=== PATIENT | male | born 2000 | race Hispanic/Latino ===

== ENCOUNTER 2018-09-29 15:05 | Emergency (ER) | payer SELFPAY ==
[2018-09-29 15:50] LABS: Absolute Lymphocytes (CBC) 1.9 K/uL (0.7-4.9); Absolute Monocytes 0.6 K/uL (0.1-1.3); Absolute Neutrophil 6.2 K/uL (1.8-8.0); Basophils % 0.6 % (0-1.3); MPV 9.4 fL (7.6-11.3); Monocytes % 6.7 % (3.3-12.3); RBC Red Blood Cell Count 4.94 M/uL (4.33-5.43)
[2018-09-29 15:56] LABS: BUN Blood Urea Nitrogen 9 mg/dL (7-18); Bicarbonate 28 mmol/L (21-32); Glucose Level 83 mg/dL (74-106); Potassium 3.6 mmol/L (3.5-5.1); Sodium Level 143 mmol/L (136-145)
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
== END 2018-09-29 17:01 | disposition home or self-care (01) ==
LOC: ER 15:05
DX: S93.401A Sprain of unspecified ligament of right ankle, initial encounter (principal); S00.90XA Unspecified superficial injury of unspecified part of head, initial encounter; S61.401A Unspecified open wound of right hand, initial encounter; V47.5XXA Car driver injured in collision with fixed or stationary object in traffic accident, initial encounter; F17.210 Nicotine dependence, cigarettes, uncomplicated; F90.9 Attention-deficit hyperactivity disorder, unspecified type
CPT/HCPCS: 36415; 70450; 71260; 72125; 74177; 80048; 85025; 99285; Q9967

== ENCOUNTER 2020-01-16 08:55 | Emergency (ER) | payer SELFPAY ==
[2020-01-16] MEDS ORDERED: NA CHLORIDE 0.9% 1,000 ML ONE (10:05)
[2020-01-16 10:06] LABS: Absolute Lymphocytes (CBC) 1.3 K/uL (0.7-4.9); Basophils % 0.5 % (0-1.3); Hematocrit 41.1 % (39.6-49.0); Lymphocytes % 9.9 % (15.3-44.8); MPV 9.8 fL (7.6-11.3); RBC Red Blood Cell Count 4.97 M/uL (4.33-5.43)
[2020-01-16 10:12] LABS: Protime INR 1.03
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
[2020-01-16 10:43] LABS: ALT/SGPT 31 U/L (12-78); AST/SGOT 26 U/L (15-37); Albumin 4.5 g/dL (3.4-5.0); Alkaline Phosphatase 72 U/L (45-117); BUN Blood Urea Nitrogen 12 mg/dL (7-18); Bicarbonate 26 mmol/L (21-32); Bilirubin Direct 0.3 mg/dL (0-0.2); Bilirubin Total 1.1 mg/dL (0.2-1.0); Glucose Level 102 mg/dL (74-106); Potassium 3.3 mmol/L (3.5-5.1); Protein, Total 8.4 g/dL (6.4-8.2); Sodium Level 135 mmol/L (136-145)
[2020-01-16 11:02] LABS: Urine Blood NEGATIVE (NEG); Urine Glucose NEGATIVE (NEG); Urine Protein NEGATIVE (NEG)
[2020-01-16] MEDS ORDERED: POTASSIUM CL SA 10 MEQ TAB PO ONE (11:34)
[2020-01-16 12:02] LABS: Barbiturates NEGATIVE (NEGATIVE); Benzodiazepines NEGATIVE (NEGATIVE); Cocaine NEGATIVE (NEGATIVE); METHAMPHETAM NEGATIVE (NEGATIVE); Methadone NEGATIVE (NEGATIVE); Opiates NEGATIVE (NEGATIVE); Phencyclidine NEGATIVE (NEGATIVE); THC Cannibis POSITIVE (NEGATIVE)
[2020-01-16 13:00] VITALS: BP 136/88; TEMP 98.6; O2SAT 100
--- NOTE | 2020-01-17 12:58 | EKG ---
Test Date: 2020-01-16 Test Time: 10:16:29 Skilled Nursing Case Manager: DANIEL MEASUREMENT RESULTS: Intervals: Rate: 71 [place]: QRSD: 78 QT: 382 QTc: 415 [place]: P: [place]: QRS: 38 T: 17 INTERPRETIVE STATEMENTS: Atrial fibrillation Abnormal ECG No previous ECG available for comparison Electronically Signed On 01-17-20 12:57:23 CDT by Yvon Trujillo
--- NOTE | 2020-01-19 16:56 | ER ---
Nurse's Notes [facility] Name: Chandan Kimball Age: 19 yrs Sex: Male : 2000 Arrival Date: 01/16/2020 Time: 09:04 Bed 8 Private MD: Diagnosis: Anxiety disorder due to known physiological condition;Post-traumatic stress disorder (PTSD);Drug abuse counseling and surveillance Presentation: 01/15 09:05 Chief complaint: EMS states: Mom wants pt to be transferred to a rehab. Pt reports "I jl7 need a drug test to prove I'm not on drugs." Pt appears anxious in triage. Coronavirus screen: Proceed with normal triage. Patient denies a cough. Patient denies shortness of breath or difficulty breathing. Patient denies measured and/or subjective temperature greater than 100.4F prior to today's visit. Patient denies travel on a cruise ship or to a country the [facility] currently lists as an affected area. Patient denies contact with known and/or suspected case of COVID-19. Ebola Screen: No symptoms or risks identified at this time. Initial Sepsis Screen: Does the patient meet any 2 criteria? No. Patient's initial sepsis screen is negative. Does the patient have a suspected source of infection? No. Patient's initial sepsis screen is negative. Risk Assessment: Do you want to hurt yourself or someone else? Patient reports no desire to harm self or others. Onset of symptoms is unknown. Care prior to arrival: None. Transition of care: patient was not received from another setting of care. 09:05 Method Of Arrival: EMS: [facility] 09:05 Acuity: TESS 4 jl7 09:36 Acuity: TESS 3 jl7 Triage Assessment: 09:08 General: Appears in no apparent distress. uncomfortable, Behavior is cooperative, jl7 anxious. Pain: Denies pain. Neuro: Level of Consciousness is awake, alert, obeys commands, Oriented to person, place, time, situation. Cardiovascular: Patient's skin is warm and dry. Respiratory: Airway is patent Respiratory effort is even, unlabored, Respiratory pattern is regular, symmetrical. Derm: Skin is pink, warm \\T\\ dry. Historical: - Allergies: 09:08 Hydroxyzine; jl7 - Home Meds: 09:08 Seroquel Oral [Active]; jl7 - PMHx: 09:08 ADD/ADHD; PTSD-self dx; jl7 - Immunization history:: Adult Immunizations unknown. - Social history:: Smoking status: Patient reports the use of cigarette tobacco products, smokes one-half pack cigarettes per day, Patient/guardian denies using alcohol, street drugs. Screenin:10 Abuse screen: Denies threats or abuse. Denies injuries from another. Nutritional jl7 screening: No deficits noted. Tuberculosis screening: No symptoms or risk factors identified. Fall Risk None identified. Assessment: 09:10 General: see triage assessment. jl7 10:28 Reassessment: FAMILY AT B/S WITH PROVIDER. FAMILY PROVIDED REHAB/DETOX RESOURCES. bp 11:22 Reassessment: Pt reports accidentally pulling his IV out, ERP notified. jl7 12:10 Reassessment: Patient appears in no apparent distress at this time. Patient and/or jl7 family updated on plan of care and expected duration. Pain level reassessed. Patient is alert, oriented x 3, equal unlabored respirations, skin warm/dry/pink. Vital Signs: 09:05 BP 136 / 88; Pulse 93; Resp 17 S; Temp 98.6(O); Pulse Ox 100% on R/A; Weight 108.86 kg jl7 (R); Height 5 ft. 9 in. (175.26 cm) (R); Pain 0/10; 09:05 Body Mass Index 35.44 (108.86 kg, 175.26 cm) jl7 ED Course: 09:04 Patient arrived in ED. jl7 09:07 Triage completed. jl7 09:08 Arm band placed on right wrist. jl7 09:09 Bob Henning PA is PHCP. jr8 09:09 Pavel Dexter MD is Attending Physician. jr8 09:10 Patient has correct armband on for positive identification. Bed in low position. Call [facility] light in reach. Side rails up X 1. Pulse ox on. NIBP on. 09:11 Venus Sanon, QIAN is Primary Nurse. jl7 10:03 Initial lab(s) drawn, by tx, sent to lab. Inserted saline lock: 20 gauge in right jl7 forearm, using aseptic technique. Blood collected. 10:18 EKG done, by senior technical writer. reviewed by Bob LAGUERRE. at1 12:30 Jeffrey Gabriel MD is Referral Physician. jr8 12:49 No provider procedures requiring assistance completed. pt dc'd IV. jl7 Administered Medications: 10:02 Drug: NS 0.9% 1000 ml Route: IV; Rate: 1000 ml; Site: right forearm; jl7 11:28 Follow up: Response: No adverse reaction; IV Status: Order to discontinue infusion; IV jl7 Intake: 400ml 11:28 Drug: Potassium Chloride 20 mEq Route: PO; jl7 Intake: 11:28 IV: 400ml; Total: 400ml. jl7 Outcome: 12:31 Discharge ordered by . jr8 12:49 Discharged to home ambulatory, with family. jl7 12:49 Condition: stable 12:49 Discharge instructions given to patient, family, Instructed on discharge instructions, follow up and referral plans. medication usage, Demonstrated understanding of instructions, follow-up care, medications, Prescriptions given X 2. 12:50 Patient left the ED. jl7 Signatures: Bob Henning PA PA jr8 Anita Kuhn, sales representative health insurance EKG Tat1 Venus Sanon, RN RN jl7 Bowen Kilgore, RN RN bp
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
== END 2020-01-16 12:50 | disposition home or self-care (01) ==
LOC: ER 08:55
DX: F43.10 Post-traumatic stress disorder, unspecified (principal); Z71.51 Drug abuse counseling and surveillance of drug abuser; F17.210 Nicotine dependence, cigarettes, uncomplicated; F90.9 Attention-deficit hyperactivity disorder, unspecified type
CPT/HCPCS: 36415; 80048; 80076; 80307; 80320; 80329; 81003; 85025; 85610; 85730; 93005; 96360; 99284; J7030

== ENCOUNTER 2020-01-18 03:50 | Emergency (ER) | payer SELFPAY ==
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
[2020-01-18 04:17] LABS: Absolute Lymphocytes (CBC) 1.2 K/uL (0.7-4.9); Basophils % 0.9 % (0-1.3); Hematocrit 42.4 % (39.6-49.0); Lymphocytes % 10.3 % (15.3-44.8); MPV 10.1 fL (7.6-11.3); RBC Red Blood Cell Count 4.97 M/uL (4.33-5.43)
[2020-01-18 04:35] LABS: Protime INR 1.03
[2020-01-18 04:38] LABS: ALT/SGPT 32 U/L (12-78); AST/SGOT 17 U/L (15-37); Albumin 4.3 g/dL (3.4-5.0); Alkaline Phosphatase 73 U/L (45-117); BUN Blood Urea Nitrogen 12 mg/dL (7-18); Bilirubin Direct 0.2 mg/dL (0-0.2); Bilirubin Total 0.7 mg/dL (0.2-1.0); Glucose Level 203 mg/dL (74-106); Potassium 3.1 mmol/L (3.5-5.1); Protein, Total 8.3 g/dL (6.4-8.2); Sodium Level 138 mmol/L (136-145)
[2020-01-18 04:42] LABS: Bicarbonate 14 mmol/L (21-32)
[2020-01-18 05:26] LABS: Urine Blood 1+ (NEG); Urine Glucose NEGATIVE (NEG); Urine Protein 2+ (NEG); Urine Specific Gravity >1.030 (1.005-1.030); Urine pH 5.5 (5.0-7.0)
[2020-01-18] MEDS ORDERED: NA CHLORIDE 0.9% 1,000 ML ONE ×2 (05:28→09:34)
[2020-01-18 06:00] LABS: Barbiturates NEGATIVE (NEGATIVE); Benzodiazepines NEGATIVE (NEGATIVE); Cocaine NEGATIVE (NEGATIVE); METHAMPHETAM NEGATIVE (NEGATIVE); Methadone NEGATIVE (NEGATIVE); Opiates NEGATIVE (NEGATIVE); Phencyclidine NEGATIVE (NEGATIVE); THC Cannibis POSITIVE (NEGATIVE)
[2020-01-18 07:34] LABS: BUN Blood Urea Nitrogen 12 mg/dL (7-18); Bicarbonate 24 mmol/L (21-32); Glucose Level 109 mg/dL (74-106); Potassium 3.4 mmol/L (3.5-5.1); Sodium Level 142 mmol/L (136-145)
[2020-01-18] MEDS ORDERED: DIPHENHYDRAMINE 50 MG/ML VIAL ONE (10:39)
[2020-01-18 12:22] VITALS: TEMP 97.1
[2020-01-18 12:31] VITALS: O2SAT 100
[2020-01-18 12:33] VITALS: BP 130/88
--- NOTE | 2020-01-18 12:48 | RAD REPORT ---
EXAM DESCRIPTION: CT - Head Brain Wo Cont - 01/18/2020 6:23 am CLINICAL HISTORY: SEIZURE COMPARISON: None. TECHNIQUE: CT HEAD WITHOUT IV CONTRAST on 01/18/2020 5:16 AM CDT This exam was performed according to our departmental dose-optimization program, which includes autom ated exposure control, adjustment of the mA and/or kV according to patient size and/or use of iterati ve reconstruction technique. FINDINGS: There is no acute hemorrhage, mass effect or midline shift. Cam-white differentiation is preserved. There is no hydrocephalus. There is no significant volume loss for age. The calvarium is intact. Orbits and globes are unremarkable. The paranasal sinuses are clear. Mastoid air cells are clear. IMPRESSION: No acute intracranial findings. Electronically signed by: Ector Wild MD 01/18/2020 6:04 AM CDT Due to temporary technical issues with the PACS/Fluency reporting system, reports are being signed by the in house radiologist without review as a courtesy to ensure prompt reporting. The interpreting r adiologist is fully responsible for the content of the report.
--- NOTE | 2020-01-18 14:05 | EKG ---
Test Date: 2020-01-18 Test Time: 04:10:37 [employer]ricating Machine Tender: KARINA MEASUREMENT RESULTS: Intervals: Rate: 98 [place]: 138 QRSD: 78 QT: 336 QTc: 428 [place]: P: 70 [place]: 138 QRS: 26 T: -39 INTERPRETIVE STATEMENTS: Normal sinus rhythm Moderate voltage criteria for LVH, may be normal variant ST & T wave abnormality, consider inferior ischemia Abnormal ECG Electronically Signed On 01-18-20 14:04:16 CDT by Yvon Trujillo
--- NOTE | 2020-01-19 18:52 | ER ---
Nurse's Notes [facility] Name: Chandan Kimball Age: 19 yrs Sex: Male : 2000 Arrival Date: 01/18/2020 Time: 03:51 Bed 5 Private MD: Diagnosis: Altered mental status, unspecified;Epilepsy and recurrent seizures Presentation: 01/17 03:52 Chief complaint: EMS states: DRUG INDUCED SEIZURE. HE HAD TWO EPISODES OF SIEZURE. GAVE rv PATIENT TWO DOSES OF ATIVAN, TOTAL OF 4MG IV. LAST TIME HE WAS HERE HE WAS POSITIVE FOR MARIJUANA. Coronavirus screen: Proceed with normal triage. Ebola Screen: No symptoms or risks identified at this time. Initial Sepsis Screen: Does the patient meet any 2 criteria? No. Patient's initial sepsis screen is negative. Does the patient have a suspected source of infection? No. Patient's initial sepsis screen is negative. Risk Assessment: Do you want to hurt yourself or someone else? Patient reports no desire to harm self or others. Onset of symptoms is unknown. 03:52 Method Of Arrival: EMS: [facility] rv 03:52 Acuity: TESS 2 rv Triage Assessment: 03:56 General: Appears unkempt, Behavior is uncooperative. Pain: Unable to use pain scale. rv Patient is disoriented. Neuro: Level of Consciousness is confused, Oriented to none. Cardiovascular: Patient's skin is warm and dry. Rhythm is sinus tachycardia. Respiratory: Airway is patent Respiratory effort is even, unlabored. Derm: Skin is intact. Historical: - Allergies: 03:56 Hydroxyzine; rv - Home Meds: 03:56 quetiapine 50 mg oral tab 1 tab 2 times per day [Active]; venlafaxine 75 mg oral tab 1 rv tab 2 times per day [Active]; - PMHx: 03:56 ADD/ADHD; PTSD-self dx; rv - PSHx: 03:56 Unable to obtain; rv - Immunization history:: Adult Immunizations unknown. - Social history:: Smoking status: unknown. Screenin:58 Abuse screen: DISORIENTED. Nutritional screening: No deficits noted. Tuberculosis rv screening: No symptoms or risk factors identified. Fall Risk No fall in past 12 months (0 pts). Secondary diagnosis (15 points) DISORIENTED. IV access (20 points). Ambulatory Aid- None/Bed Rest/Nurse Assist (0 pts). Gait- Normal/Bed Rest/Wheelchair (0 pts) Mental Status- Overestimates/Forgets Limitations (15 pts.). Total Wu Fall Scale indicates Low Risk Score (25-44 pts). Fall prevention measures have been instituted. Side Rails Up X 2 Frequent Obs/Assesments occuring. Assessment: 05:49 Reassessment:. Neuro: Level of Consciousness is confused, Oriented to none Pupils are rv PERRLA, Pupil Size: 3. 05:55 Reassessment: patient is still asleep. unable to maintain wakefulness. unable to answer rv questions and speaks incomprehensible sounds. no signs of respiratory distress at this time. and heart rate is normalized to 73 bpm, sinus rhythm. 07:09 Reassessment: Samantha (mother) [phone] call for when ready to discharge. sv 07:20 General: Appears in no apparent distress. comfortable, Behavior is drowsy. Pain: Unable sv to use pain scale. FLACC scale score is 0 out of 10. Neuro: Level of Consciousness is confused, lethargic. Respiratory: Airway is patent Respiratory effort is even, unlabored, Respiratory pattern is regular, symmetrical. Derm: Skin is pink, warm \\T\\ dry. 08:00 Reassessment: Patient appears in no apparent distress at this time. Pt sleeping at this sv time. Respirations even and unlabored. 09:21 Reassessment: Pt awake at this time, asking what happened. Pt informed. Pt shaking at sv this time. HR while asleep has been 70-80s and while awake is 110-130s. Dr Johnson informed. 09:25 Reassessment: Patient appears in no apparent distress at this time. Patient and/or sv family updated on plan of care and expected duration. Pain level reassessed. Patient is alert, oriented x 3, equal unlabored respirations, skin warm/dry/pink. Pt sitting up in the bed. Water given to the pt. 10:00 Reassessment: Pt repeatedly removing his telemetry leads, pulse ox, and BP cuff. Pt sv instructed to leave them on. Pt replies, Yes ma'am. 10:28 Reassessment: Dr Johnson at the bedside speaking to the pt. sv 11:00 Reassessment: Pt repeatedly removing his telemetry leads, pulse ox, and BP cuff. Pt sv instructed to leave them on. Pt replies, Yes ma'am. 11:14 Reassessment: Patient appears in no apparent distress at this time. Patient and/or sv family updated on plan of care and expected duration. Pain level reassessed. Patient is alert, oriented x 3, equal unlabored respirations, skin warm/dry/pink. Pt noted to be standing on the side of the stretcher, stated that he couldn't stay in the bed any longer. Pt stated "I just have a lot of energy right now." Asked pt to sit on the stretcher for safety reasons. Pt able to sit on the side of the stretcher. 12:12 Reassessment: Patient appears in no apparent distress at this time. Patient and/or sv family updated on plan of care and expected duration. Pain level reassessed. Patient is alert, oriented x 3, equal unlabored respirations, skin warm/dry/pink. Pt able to ambulate on his own with no difficulty noted. Vital Signs: 03:52 BP 142 / 73; Pulse 115; Resp 18; Temp 97.1; Pulse Ox 98% on R/A; Weight 90.72 kg; rv 04:00 BP 128 / 82; Pulse 104; Resp 16; Pulse Ox 97% on R/A; rv 05:51 BP 152 / 84; Pulse 63; Resp 15; Pulse Ox 98% ; rv 07:12 BP 147 / 88; Pulse 77; Resp 22; Pulse Ox 100% ; sv 08:18 BP 143 / 90; Pulse 75; Resp 20; Pulse Ox 100% on R/A; sv 09:46 BP 151 / 96; Pulse 110; Resp 21; Pulse Ox 99% ; sv 10:53 Pulse 90; Resp 22; Pulse Ox 100% ; sv 11:50 BP 130 / 88; Pulse 80; Resp 18; Pulse Ox 100% ; sv 11:50 Pt standing up in the room at this time. No difficulty with ambulation. sv [place] Coma Score: 03:56 Eye Response: to pain(2). Verbal Response: confused(4). Motor Response: localizes rv pain(5). Total: 11. 05:50 Eye Response: to voice(3). Verbal Response: confused(4). Motor Response: localizes rv pain(5). Total: 12. ED Course: 03:51 Patient arrived in ED. ds1 03:52 Dejan Vo, RN is Primary Nurse. rv 03:55 Triage completed. rv 03:57 Arm band placed on Patient placed in the treatment room, on a stretcher, Patient rv notified of wait time. 03:57 No provider procedures requiring assistance completed. rv 03:59 Seizure precautions initiated. negative spotter on. Pulse ox on. NIBP on. rv 04:41 Yogesh Bolden MD is Attending Physician. mh7 04:42 Notified ED physician of a critical lab result(s). Co2 14. sg 06:00 CT Head Brain wo Cont In Process Unspecified. EDMS 07:04 Primary Nurse role handed off by Dejan Vo RN sv 07:04 Katelyn Wolff RN is Primary Nurse. sv 07:06 CPK Sent. sv 07:21 Attending Physician role handed off by Yogesh Bolden MD kdr 07:21 Ramón Johnson MD is Attending Physician. kdr 12:11 IV discontinued, intact, bleeding controlled, No redness/swelling at site. Pressure sv dressing applied. Administered Medications: 05:22 Drug: NS 0.9% 1000 ml Route: IV; Rate: 1000 ml; Site: right antecubital; rv 07:08 Follow up: IV Status: Completed infusion; IV Intake: 1000ml rv 09:32 Drug: NS 0.9% 1000 ml Route: IV; Rate: 1000 ml; Site: right antecubital; sv 10:29 Follow up: Response: No adverse reaction; IV Status: Completed infusion; IV Intake: sv 1000ml 10:37 Drug: Benadryl 25 mg Route: IVP; Site: right antecubital; sv 10:52 Follow up: Response: No adverse reaction sv 10:52 Drug: Benadryl 25 mg Route: IVP; Site: right antecubital; sv 11:30 Follow up: Response: No adverse reaction sv Intake: 07:08 IV: 1000ml; Total: 1000ml. rv 10:29 IV: 1000ml; Total: 2000ml. sv Outcome: 11:57 Discharge ordered by . kdr 12:11 Discharged to home via wheelchair, with family. sv 12:11 Condition: stable 12:11 Discharge instructions given to patient, Instructed on discharge instructions, follow up and referral plans. medication usage, Demonstrated understanding of instructions, follow-up care, medications. 12:12 Patient left the ED. sv Signatures: Dispatcher [employer] EDKatelyn Anaya RN RN sv Gay, Steven, RN RN sg Rittger, Kevin, MD MD kdr Corona, Katelyn ds1 Dejan Vo RN RN rv Yogesh Bolden MD MD mh7 Corrections: (The following items were deleted from the chart) 05:57 05:49 Neuro: Level of Consciousness is confused, Oriented to none Pupils are PERRLA, rv Pupil Size: 3 rv
--- NOTE | 2020-01-19 18:52 | EDPHYS ---
Physician Documentation [facility] Name: Chandan Kimball Age: 19 yrs Sex: Male : 2000 Arrival Date: 01/18/2020 Time: 03:51 Bed 5 Private MD: ED Physician Ramón Johnson HPI: 01/17 05:48 This 19 yrs old Male presents to ER via EMS with complaints of Seizure. mh7 05:48 The patient presents with a history of multiple seizures, a total of 2. Character of mh7 seizure(s): Loss of consciousness: the patient experienced loss of consciousness, brief, Motor activity: generalized, shaking all over, Incontinence: none, Apnea: the patient did not experience apnea, Circulation: the patient did not experience evidence of pulse disturbance, Eye movements: are unknown. Seizure onset: today. Context: the seizure(s) was witnessed, by family, occurred at home, occurred while the patient was sitting, Contributing factors: suspected drug use. Seizure Hx: once in past due to drug use. Associated injury: The patient did not suffer any apparent associated injury. EMS care: Ativan, 4 mg(s). 06:52 Current symptoms: sleeping but responsive to tactile stimuli. Unable to obtain HPI due mh7 to sleeping. The patient has experienced a previous episode. Historical: - Allergies: 03:56 Hydroxyzine; rv - Home Meds: 03:56 quetiapine 50 mg oral tab 1 tab 2 times per day [Active]; venlafaxine 75 mg oral tab 1 rv tab 2 times per day [Active]; - PMHx: 03:56 ADD/ADHD; PTSD-self dx; rv - PSHx: 03:56 Unable to obtain; rv - Immunization history:: Adult Immunizations unknown. - Social history:: Smoking status: unknown. ROS: 06:52 Unable to obtain ROS due to altered mental status, sleeping, arousable but drowsy. mh7 12:07 Constitutional: Unobtainable seconary to AMS kdr Exam: 06:52 Head/Face: Normocephalic, atraumatic. Eyes: Pupils equal round and reactive to light, mh7 extra-ocular motions intact. Lids and lashes normal. Conjunctiva and sclera are non-icteric and not injected. Cornea within normal limits. Periorbital areas with no swelling, redness, or edema. ENT: Nares patent. No nasal discharge, no septal abnormalities noted. Tympanic membranes are normal and external auditory canals are clear. Oropharynx with no redness, swelling, or masses, exudates, or evidence of obstruction, uvula midline. Mucous membranes moist. Neck: Trachea midline, no thyromegaly or masses palpated, and no cervical lymphadenopathy. Supple, full range of motion without nuchal rigidity, or vertebral point tenderness. No Meningismus. Chest/axilla: Normal chest wall appearance and motion. Nontender with no deformity. No lesions are appreciated. Cardiovascular: Regular rate and rhythm with a normal S1 and S2. No gallops, murmurs, or rubs. Normal PMI, no JVD. No pulse deficits. Respiratory: Lungs have equal breath sounds bilaterally, clear to auscultation and percussion. No rales, rhonchi or wheezes noted. No increased work of breathing, no retractions or nasal flaring. Abdomen/GI: Soft, non-tender, with normal bowel sounds. No distension or tympany. No guarding or rebound. No evidence of tenderness throughout. Back: No spinal tenderness. No costovertebral tenderness. Full range of motion. Skin: Warm, dry with normal turgor. Normal color with no rashes, no lesions, and no evidence of cellulitis. MS/ Extremity: Pulses equal, no cyanosis. Neurovascular intact. Full, normal range of motion. 06:52 Constitutional: The patient appears in no acute distress, sleeping, arousable with tactile stimuli 06:52 Neuro: Orientation: to person, Mentation: sleepy, Memory: recent memory is intact, Cranial nerves: CN II- XII are normal as tested, Cerebellar function: unable to test, sleepy, Motor: moves all fours, Sensation: is normal, Gait: not tested. seizure activity, is not displayed by the patient, Abnormal movements: there are no abnormal movements. 06:52 Psych: unable to assess due to current mental status. Vital Signs: 03:52 BP 142 / 73; Pulse 115; Resp 18; Temp 97.1; Pulse Ox 98% on R/A; Weight 90.72 kg; rv 04:00 BP 128 / 82; Pulse 104; Resp 16; Pulse Ox 97% on R/A; rv 05:51 BP 152 / 84; Pulse 63; Resp 15; Pulse Ox 98% ; rv 07:12 BP 147 / 88; Pulse 77; Resp 22; Pulse Ox 100% ; sv 08:18 BP 143 / 90; Pulse 75; Resp 20; Pulse Ox 100% on R/A; sv 09:46 BP 151 / 96; Pulse 110; Resp 21; Pulse Ox 99% ; sv 10:53 Pulse 90; Resp 22; Pulse Ox 100% ; sv 11:50 BP 130 / 88; Pulse 80; Resp 18; Pulse Ox 100% ; sv 11:50 Pt standing up in the room at this time. No difficulty with ambulation. sv Flaquita Coma Score: 03:56 Eye Response: to pain(2). Verbal Response: confused(4). Motor Response: localizes rv pain(5). Total: 11. 05:50 Eye Response: to voice(3). Verbal Response: confused(4). Motor Response: localizes rv pain(5). Total: 12. MDM: 05:11 Patient medically screened. [facility] 12:02 Data reviewed: vital signs, nurses notes, lab test result(s). Counseling: I had a kdr detailed discussion with the patient and/or guardian regarding: the historical points, exam findings, and any diagnostic results supporting the discharge/admit diagnosis, lab results, radiology results, the need for outpatient follow up. ED course: VS improved. The patient was awake, alert and appropriate. He was not in any distress at the time of discharge and was happy with the care provided and the plan for discharge with follow-up.. 01/17 04:02 Order name: Acetaminophen; Complete Time: 05:15 01/17 04:02 Order name: Basic Metabolic Panel; Complete Time: 05:15 01/17 04:02 Order name: CBC with Diff; Complete Time: 05:15 01/17 04:02 Order name: ETOH Level; Complete Time: 05:15 01/17 04:02 Order name: Hepatic Function; Complete Time: 05:15 01/17 04:02 Order name: PT-INR; Complete Time: 05:15 01/17 04:02 Order name: Ptt, Activated; Complete Time: 05:15 01/17 04:02 Order name: Salicylate; Complete Time: 05:15 01/17 04:02 Order name: Urine Drug Screen; Complete Time: 06:47 01/17 04:10 Order name: Glucose, Ancillary Testing; Complete Time: 05:15 EDMS 01/17 05:16 Order name: CPK [facility] 01/17 05:16 Order name: Creatine Phosphokinase; Complete Time: 06:47 EDMS 01/17 05:20 Order name: Urine Dipstick--Ancillary (enter results); Complete Time: 06:47 mt 01/17 06:50 Order name: Chem 7; Complete Time: 07:54 rv 01/17 04:02 Order name: EKG; Complete Time: 04:03 sg 01/17 04:02 Order name: EKG - Nurse/Tech; Complete Time: 04:02 sg 01/17 04:02 Order name: IV Saline Lock; Complete Time: 04:02 sg 01/17 04:02 Order name: Labs collected and sent; Complete Time: 04:02 01/17 04:02 Order name: Urine Dipstick-Ancillary (obtain specimen); Complete Time: 05:19 sg 01/17 05:16 Order name: CT Head Brain wo Cont [facility] 01/17 11:40 Order name: Diet Regular; Complete Time: 11:40 eb Administered Medications: 05:22 Drug: NS 0.9% 1000 ml Route: IV; Rate: 1000 ml; Site: right antecubital; rv 07:08 Follow up: IV Status: Completed infusion; IV Intake: 1000ml rv 09:32 Drug: NS 0.9% 1000 ml Route: IV; Rate: 1000 ml; Site: right antecubital; sv 10:29 Follow up: Response: No adverse reaction; IV Status: Completed infusion; IV Intake: sv 1000ml 10:37 Drug: Benadryl 25 mg Route: IVP; Site: right antecubital; sv 10:52 Follow up: Response: No adverse reaction sv 10:52 Drug: Benadryl 25 mg Route: IVP; Site: right antecubital; sv 11:30 Follow up: Response: No adverse reaction sv Disposition: 01/18/20 11:57 Discharged to Home. Impression: Altered mental status, unspecified, Epilepsy and recurrent seizures. - Condition is Stable. - Discharge Instructions: Confusion. - Prescriptions for Benadryl 25 mg Oral Capsule - take 1 capsule by ORAL route every 6 hours As needed Take one or two tablets every six hours as needed for anxiety and tremor; 12 tablet. - Medication Reconciliation Form, Thank You Letter, SBAR form form. - Follow up: Private Physician; When: 2 - 3 days; Reason: If symptoms return, Further diagnostic work-up, Recheck today's complaints, Continuance of care, Re-evaluation by your physician. - Problem is new. - Symptoms have improved. Signatures: Dispatcher [employer] Katelyn Suero RN RN sv Gay, Steven, RN RN sg Rittger, Kevin, MD MD kdr Dejan Vo RN RN Yogesh Bolden MD MD 7 Corrections: (The following items were deleted from the chart) 12:12 11:57 01/18/2020 11:57 Discharged to Home. Impression: Altered mental status, sv unspecified; Epilepsy and recurrent seizures. Condition is Stable. Forms are SBAR form, Medication Reconciliation Form, Thank You Letter, Antibiotic Education, Prescription Opioid Use. Follow up: Private Physician; When: 2 - 3 days; Reason: If symptoms return, Further diagnostic work-up, Recheck today's complaints, Continuance of care, Re-evaluation by your physician. Problem is new. Symptoms have improved. kdr
== END 2020-01-18 12:12 | disposition home or self-care (01) ==
LOC: ER 03:50
DX: G40.802 Other epilepsy, not intractable, without status epilepticus (principal); F90.9 Attention-deficit hyperactivity disorder, unspecified type; Z88.8 Allergy status to other drugs, medicaments and biological substances
CPT/HCPCS: 36415; 70450; 80048; 80076; 80307; 80320; 80329; 81003; 82550; 82947; 85025; 85610; 85730; 93005; 96361; 96374; 99285; J1200; J7030

== ENCOUNTER 2020-06-05 21:06 | Emergency (ER) | payer SELFPAY ==
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
[2020-06-05] MEDS ORDERED: NA CHLORIDE 0.9% 1,000 ML ONE (21:30)
[2020-06-05 21:37] LABS: Absolute Lymphocytes (CBC) 1.5 K/uL (0.7-4.9)
[2020-06-05 21:40] LABS: Protime INR 1.1
[2020-06-05 21:41] LABS: Basophils % 0.7 % (0-1.3); Lymphocytes % 14.2 % (15.3-44.8); MPV 9.2 fL (7.6-11.3); RBC Red Blood Cell Count 5.19 M/uL (4.33-5.43)
[2020-06-05 21:57] LABS: ALT/SGPT 26 U/L (12-78); AST/SGOT 25 U/L (15-37); Albumin 4.4 g/dL (3.4-5.0); Alkaline Phosphatase 84 U/L (45-117); BUN Blood Urea Nitrogen 14 mg/dL (7-18); Bicarbonate 22 mmol/L (21-32); Bilirubin Direct 0.2 mg/dL (0-0.2); Bilirubin Total 1.2 mg/dL (0.2-1.0); Glucose Level 95 mg/dL (74-106); Potassium 3.6 mmol/L (3.5-5.1); Protein, Total 8.7 g/dL (6.4-8.2); Sodium Level 141 mmol/L (136-145)
--- NOTE | 2020-06-05 22:10 | ER ---
Nurse's Notes [facility] Name: Chandan Kimball Age: 20 yrs Sex: Male : 2000 Arrival Date: 06/05/2020 Time: 21:10 Bed 17 Private MD: Diagnosis: Substance abuse (ETOH), Depression, Suicidal Ideation Presentation: 06/05 21:10 Chief complaint: EMS states: Pt was walking on the side of the road PD was on scene, ea reported pt was having SI and had cut his left forearm with a pocket knife. Pt reported his ex girlfriend would not let him see his daughter. Pt states " I was trying to kill myself". Coronavirus screen: At this time, the client does not indicate any symptoms associated with coronavirus-19. Ebola Screen: No symptoms or risks identified at this time. Initial Sepsis Screen: Does the patient meet any 2 criteria? No. Patient's initial sepsis screen is negative. Does the patient have a suspected source of infection? No. Patient's initial sepsis screen is negative. Risk Assessment: Do you want to hurt yourself or someone else? Patient reports no desire to harm self or others. Onset of symptoms was June 05, 2020. 21:10 Method Of Arrival: EMS: [facility] ea 21:10 Acuity: TESS 2 ea 21:27 Coronavirus screen: Client denies travel out of the [place] in the last 14 days. At this sg time, the client does not indicate any symptoms associated with coronavirus-19. Ebola Screen: Patient negative for fever greater than or equal to 101.5 degrees Fahrenheit, and additional compatible Ebola Virus Disease symptoms Patient denies exposure to infectious person. Patient denies travel to an Ebola-affected area in the 21 days before illness onset. No symptoms or risks identified at this time. Initial Sepsis Screen: Does the patient meet any 2 criteria? No. Patient's initial sepsis screen is negative. Does the patient have a suspected source of infection? No. Patient's initial sepsis screen is negative. Onset of symptoms was June 05, 2020. Care prior to arrival: None. Transition of care: patient was not received from another setting of care. 21:27 Acuity: TESS 2 sg 21:27 Method Of Arrival: EMS: [facility] sg Triage Assessment: 21:34 General: Appears in no apparent distress. Behavior is appropriate for age. Pain: ea Complains of pain in dorsal aspect of left forearm. Historical: - Allergies: 21:29 Hydroxyzine; sg - Home Meds: 22:15 adepsique [Active]; Carbolit [Active]; ea - PMHx: 21:29 ADD/ADHD; PTSD-self dx; sg - PSHx: :29 Unable to obtain; sg - Immunization history:: Adult Immunizations up to date. - Social history:: Smoking status: Patient denies any tobacco usage or history of. - Family history:: not pertinent. Screenin:29 Abuse screen: Denies threats or abuse. Nutritional screening: No deficits noted. ea Tuberculosis screening: No symptoms or risk factors identified. Fall Risk IV access (20 points). Assessment: 21:30 General: Appears in no apparent distress. comfortable, Behavior is calm, cooperative. mg2 Pain: Complains of pain in left arm. Neuro: Level of Consciousness is awake, alert, obeys commands, Oriented to person, place, time, situation. Cardiovascular: Capillary refill < 3 seconds Patient's skin is warm and dry. Respiratory: Airway is patent Respiratory effort is even, unlabored, Respiratory pattern is regular, symmetrical. GI: No signs and/or symptoms were reported involving the gastrointestinal system. : No signs and/or symptoms were reported regarding the genitourinary system. EENT: No signs and/or symptoms were reported regarding the EENT system. Derm: Wound noted Wound is multiple lacerations in the left forearm. Musculoskeletal: Circulation, motion, and sensation intact. Capillary refill < 3 seconds. Injury Description: Laceration sustained to dorsal aspect of left forearm is 2.6 to 7.5 cm long, not bleeding, was sustained 4-6 hours ago. a small amount of bleeding noted at this time. 21:58 Reassessment: Samantha-[phone] ( mother) was updated about the patient. mg2 22:20 Reassessment: belongings given to security. Phone Number: [phone]. mg2 22:45 Reassessment: meal served to the patient. mg2 23:35 Reassessment: marketing officer speaking to the patient right now., patient on GIOVANNI. mg2 06/06 00:29 Reassessment: Patient appears in no apparent distress at this time. Patient and/or mg2 family updated on plan of care and expected duration. Pain level reassessed. 00:30 Reassessment: patient and the mother (thru phone) informed about the plan. waiting for marcy anderson to call and speak to the patient. 01:28 Reassessment: Dmitry Anderson speaking with patient via tablet. ea 03:33 Reassessment: Patient appears in no apparent distress at this time. [place] [facility] recommended that patient be admitted inpatient in a psych facility. patient informed about the plan and seems unhappy about it. he was saying that he might get fired from his job if he cant go today. 04:06 Reassessment: patient sleeping now. mg2 04:38 Reassessment: patient sleeping. mg2 06:17 Reassessment: Patient appears in no apparent distress at this time. mg2 06:39 Reassessment: patient sleeping. mg2 07:00 Reassessment: RECD REPORT FROM JANICE LAUGHLIN. 20YO HM P/W SI AND ETOH 2/2 CUSTODY ISSUES. bp GIOVANNI ON FILE. PT CLEARED MEDICALLY, INPATIENT ADVISED BY DMITRY ANDERSON. TRANSFER INITIATED, NO ACCEPTANCE AT THIS TIME. 09:00 Reassessment: PT OOB TO PHONE AND FED BREAKFAST. NO UPDATE ON TRANSFER. bp 10:13 Reassessment: PT TEARFUL ON PHONE WITH FAMILY, STATING HE WISHES TO GO HOME. AT B/S bp TO LEGAL EXAMINER PT. 12:04 Reassessment: PT ELOPED FROM UNIT AFTER PHONE CALL WITH FAMILY. PT REFUSED VERBAL bp REDIRECTION TO ROOM. 12:12 Reassessment: PT ELOPED FROM FACILITY. LAST SEEN IN STABLE CONDITION, NO ATAXIA, STEADY bp GAIT. [facility] CONTACTED FOR PT WITH GIOVANNI. 12:30 Reassessment: PT RETURNED TO ED BY [facility] AND [facility]. PT NOT AGGRESSIVE AT THIS TIME, bp STATING HE WANTS TO LEAVE. 12:36 Reassessment: Pt crying, sitting in bed. Administered Ativan per MD. Pt states "I am so aa5 sorry I escaped the hospital, I won't do this again". Explained to pt we have an [facility] order given by [facility], for transfer to a psych facility, pt verbalized understanding. Pt also explained long wait time to be transferred to psych facility due to waiting on acceptance at one the facilities, pt verbalizes understanding. Pt requested to call his mother now, pt now speaking to mother [id number]. . 13:40 Reassessment: FAMILY AT B/S WITH FOOD FOR PT. bp 17:21 Reassessment: Patient appears in no apparent distress at this time. Patient and/or bp family updated on plan of care and expected duration. Pain level reassessed. FAMILY AT B/S. PT STATES INCREASED ANXIETY, MD INFORMED. MEDICATION ORDERED AND GIVEN. 19:38 Reassessment: Patient in room, alert, oriented x4, ambulatory, on room air, not in fu respiratory distress, talking to his girlfriend, denies thoughts of hurting himself or hurting others. Patient is answering questions properly, cooperative and calm at this time. 20:00 Reassessment: family at beside. patient eating food from home. fu 22:29 Reassessment: Patient requesting medication to help with sleep; verbal order from lp1 Provider for Ativan 2mg IM. 06/07 00:15 Reassessment: Patient is sleeping, appear not in distress at this time. fu 02:09 Reassessment: patient sleeping, not in respiratory distress. fu 03:52 Reassessment: Patient appears in no apparent distress at this time. No changes from fu previously documented assessment. 05:00 Reassessment: Patient appears in no apparent distress at this time. No changes from fu previously documented assessment. 06:12 Reassessment: Patient appears in no apparent distress at this time. No changes from fu previously documented assessment. 07:00 Reassessment: Patient appears in no apparent distress at this time. No changes from tw2 previously documented assessment. Patient and/or family updated on plan of care and expected duration. Pain level reassessed. pt appears to be sleeping at this time. 08:00 Reassessment: pt informed sitter he did not want a breakfast tray because family was tw2 bringing him something. 09:00 Reassessment: Patient appears in no apparent distress at this time. No changes from tw2 previously documented assessment. Patient and/or family updated on plan of care and expected duration. Pain level reassessed. 10:29 Reassessment: pt has family at bedside at this time. tw2 11:37 Reassessment: Patient appears in no apparent distress at this time. No changes from tw2 previously documented assessment. Patient and/or family updated on plan of care and expected duration. Pain level reassessed. pts family remains at bedside at this time. 12:55 Reassessment: pt c/o anxiety, pacing the room, family at bedside, pt asked "can i get tw2 something for anxiety", provider notified. 13:00 Reassessment: pt calmly sitting with family, pt given medication as ordered, pt asked tw2 "can i please be discharged and my family take me to a facility in [place]", provider notified. 13:30 Reassessment: provider at bedside at this time without family present. tw2 14:28 Reassessment: Patient appears in no apparent distress at this time. No changes from tw2 previously documented assessment. Patient and/or family updated on plan of care and expected duration. Pain level reassessed. pt resting quietly at this time, family has returned to bedside at this time. 14:52 Reassessment: Patient appears in no apparent distress at this time. No changes from tw2 previously documented assessment. Patient and/or family updated on plan of care and expected duration. Pain level reassessed. pts family with pt, agreeable to POC and discharge. pt reports "all my stuff was given back to my family yesterday and they took it home". Psych: 06/05 21:30 Objective: Patient is cooperative, Speech is normal, Affect is flat. Interventions: ea Patient placed in hospital gown. Suicide Risk Assessment: Sad Person Scale: Sex of patient: Male: Score 1 point. Age of patient: Score 1 point if patient 15-34. Depression: Score 1 point if signs of depression are present. Previous Attempt: Score 1 point if patient has previously attempted suicide. Substance Abuse: Score 0 point if patient does not abuse alcohol or drugs. Rational Thinking: Score 0 point if patient has rational thinking. Social Support: Score 0 if social support is present/available. Organized Plan: Score 1 point if patient had a plan in place. Relationship: Score 0 point if patient has a spouse or domestic partner. Safety Checks: Personal items have been removed. Door is open. No visitors are present at this time. Pt denies substance abuse. Commitment: Patient will be a voluntary commitment. 21:48 Subjective: Patient's mood is sad, Delusions are denied, Hallucinations are denied ea Having thoughts of suicide. Vital Signs: 21:10 BP 142 / 85; Pulse 106; Resp 18; Temp 99; Pulse Ox 99% on R/A; Weight 104.33 kg; Height ea 5 ft. 8 in. (172.72 cm); 06/06 08:41 BP 113 / 56; Pulse 80; Resp 16; Temp 97; Pulse Ox 100% ; mp1 13:06 BP 128 / 72; Pulse 77; Resp 18; Temp 97.7; Pulse Ox 100% ; mp1 20:42 BP 136 / 94; Pulse 76; Resp 16; Temp 98.3(O); Pulse Ox 94% on R/A; Pain 0/10; fu 06/07 14:28 BP 143 / 86; Pulse 90; Resp 20; Temp 98.6(O); Pulse Ox 100% on R/A; tw2 06/05 21:10 Body Mass Index 34.97 (104.33 kg, 172.72 cm) ea ED Course: 06/05 21:10 Patient arrived in ED. sg 21:10 Tevin Le, RN is Primary Nurse. mg2 21:10 Arm band placed on. sg 21:10 Patient has correct armband on for positive identification. Placed in gown. Bed in low ea position. Call light in reach. 21:11 Pavel Dexter MD is Attending Physician. aj 21:23 Assist provider with laceration repair on left arm that was between 2.6 to 7.5 cm using mg2 sutures. Set up tray. Performed by Pavel Dexter MD Dressed with 4X4s, Neosporin, Patient tolerated well. Inserted saline lock: 20 gauge in right forearm, using aseptic technique. Blood collected. 21:29 Triage completed. sg 22:00 Sitter at bedside. mg2 23:00 IV discontinued, intact, bleeding controlled, No redness/swelling at site. Pressure mg2 dressing applied. 06/06 00:29 Warm blanket given. mg2 05:00 Faxed pt. clinical's to all psych facilities. ar5 07:55 Attending Physician role handed off by Pavel Dexter MD rn 07:55 Adonis Murray MD is Attending Physician. rn 12:10 ED called [place] [employer] to notify them that pt has eloped while on an em1 Emergency Halfway Order issued by the [facility]' Office. [place] advised ED that two officers are being dispatched to locate and apprehend the pt. 10/19 01:12 Primary Nurse role handed off by Tevin Le RN sg 06:45 Faxed pt. clinical's to all the medical center facilities. ar5 07:00 Safety Checks: Personal items have been removed. The door is open or patient has been tw2 placed in a hallway bed/chair. A family member and/or friend is present and encouraged to stay. Sitter present at this time. sitter remains with pt throughout shift. 07:03 Cindy Estrada RN is Primary Nurse. tw2 07:48 Attending Physician role handed off by Adonis Murray MD kdr 07:48 Ramón Johnson MD is Attending Physician. kdr 09:19 spoke with Tito at [facility] at this time, pt is on waiting list. bd 14:36 Dr. Johnson at bed side speaking with family. mt Administered Medications: 06/05 21:23 Drug: NS 0.9% 1000 ml Route: IV; Rate: 1 bolus; Site: right forearm; mg2 22:57 Follow up: Response: No adverse reaction; IV Status: Completed infusion; IV Intake: mg2 1000ml 22:33 Drug: Lidocaine-Epinephrine -1%: (1:100,000) 10 ml {Note: administered by the mg2 provider.} Volume: 20 ml; Route: Infiltration; 22:57 Follow up: Response: No adverse reaction mg2 22:57 Drug: Tetanus-Diphtheria Toxoid Adult 0.5 ml {Towerman: [employer]. Exp: mg2 10/09/2022. Lot #: [id number]. } Route: IM; Site: right deltoid; 06/06 01:01 Follow up: Response: No adverse reaction mg2 01:00 Drug: Neosporin Ointment 1 application Route: Topical; Site: affected area; mg2 01:01 Follow up: Response: No adverse reaction mg2 03:56 Drug: Ativan 1 mg Route: IM; Site: left deltoid; ll2 04:39 Follow up: Response: No adverse reaction; Marked relief of symptoms; patient sleeping mg2 10:45 Drug: Ativan 1 mg Route: PO; bp 12:13 Follow up: Response: No adverse reaction bp 12:35 Drug: Ativan 1 mg Route: IM; Site: right deltoid; aa5 13:40 Follow up: Response: Anxiety decreased bp 17:20 Drug: Ativan 2 mg Route: IM; Site: right deltoid; bp 18:22 Follow up: Response: Anxiety decreased bp 22:37 Drug: Ativan 2 mg Route: IM; Site: left deltoid; fu 23:40 Follow up: Response: Anxiety decreased fu 06/07 13:00 Drug: Ativan 2 mg Route: PO; tw2 14:29 Follow up: Response: No adverse reaction; Marked relief of symptoms tw2 Intake: 06/05 22:57 IV: 1000ml; Total: 1000ml. mg2 Outcome: 22:10 ER care complete, transfer ordered by . aj 06/07 14:44 Discharge ordered by MD. kdr 14:52 Discharged to home ambulatory, with family. tw2 14:52 Condition: stable 14:52 Discharge instructions given to patient, family, Instructed on discharge instructions, follow up and referral plans. no drinking with medication, no driving heavy equipment, medication usage, Demonstrated understanding of instructions, follow-up care, medications, Prescriptions given X 1. 14:58 Patient left the ED. tw2 Signatures: Vanessa Brice Steven, RN QIAN Pavel Dexter MD MD cha Rittger, Kevin, MD MD kdr Nieto, Roman, MD MD rn Martinez, Eric em1 Linette Burnham RN RN aa5 Tova Madrid RN RN lp1 Cindy Estrada RN RN tw2 Lynn Patiño mt, Elena RN QIAN Garry Garg, RN Bowen Patel RN Tevin Rivers, RN QIAN mg2 Janice Dunbar mp1 Moraima Flynn ar5 Teresita Ralph RN RN ll2 Corrections: (The following items were deleted from the chart) 06/05 22:31 21:27 Chief complaint: EMS states: pt was visualized walking around the front of the [facility]. When questioned pt stated that he needed help because he had plans to harm himself. Self inflicted wound to the left forearm with bleeding controlled per EMS [employer] sg 22:43 21:27 Risk Assessment: Do you want to hurt yourself or someone else? Patient reports sg desire/thoughts of hurting themselves or someone else. Provider notified. sg 23:04 21:23 No provider procedures requiring assistance completed. mg2 mg2 06/06 12:05 12:04 Reassessment: PT ELOPED FROM UNIT AFTER PHONE CALL WITH FAMILY. PT REFUSED VERBAL bp REDIRECTION TO ROOM bp 06/07 14:55 14:52 Reassessment: Patient appears in no apparent distress at this time. No changes tw2 from previously documented assessment. Patient and/or family updated on plan of care and expected duration. Pain level reassessed. pts family with pt, agreeable to POC and discharge. tw2
--- NOTE | 2020-06-05 22:10 | EDPHYS ---
Physician Documentation [facility] Name: Chandan Kimball Age: 20 yrs Sex: Male : 2000 Arrival Date: 06/05/2020 Time: 21:10 Bed 17 Private MD: ED Physician Ramón Johnson HPI: 06/05 22:01 This 20 yrs old Male presents to ER via EMS with complaints of Psych Problem. aj 22:01 The patient presents to the emergency department with depression, a history of a [facility] suicide gesture, suicide ideation. Onset: The symptoms/episode began/occurred just prior to arrival. Past psychiatric history: Prior diagnosis: depression. Associated signs and symptoms: Pertinent positives; suicide ideation. Severity of symptoms: At their worst the symptoms were mild in the emergency department the symptoms are unchanged. The patient has not experienced similar symptoms in the past. Historical: - Allergies: 21:29 Hydroxyzine; sg - Home Meds: 22:15 adepsique [Active]; Carbolit [Active]; ea - PMHx: 21:29 ADD/ADHD; PTSD-self dx; sg - PSHx: 21:29 Unable to obtain; sg - Immunization history:: Adult Immunizations up to date. - Social history:: Smoking status: Patient denies any tobacco usage or history of. - Family history:: not pertinent. ROS: 22:01 Constitutional: Negative for fever, chills, and weight loss, Eyes: Negative for injury, aj pain, redness, and discharge, ENT: Negative for injury, pain, and discharge, Neck: Negative for injury, pain, and swelling, Cardiovascular: Negative for chest pain, palpitations, and edema, Respiratory: Negative for shortness of breath, cough, wheezing, and pleuritic chest pain, Abdomen/GI: Negative for abdominal pain, nausea, vomiting, diarrhea, and constipation, Back: Negative for injury and pain, : Negative for injury, bleeding, discharge, and swelling, Skin: Negative for injury, rash, and discoloration, Neuro: Negative for headache, weakness, numbness, tingling, and seizure, Allergy/Immunology: Negative for hives, rash, and allergies, Endocrine: Negative for neck swelling, polydipsia, polyuria, polyphagia, and marked weight changes. 22:01 MS/extremity: Positive for laceration, of the dorsal aspect of left forearm and palmar aspect of left forearm. Exam: 22:01 Constitutional: This is a well developed, well nourished patient who is awake, alert, aj and in no acute distress. Head/Face: Normocephalic, atraumatic. Eyes: Pupils equal round and reactive to light, extra-ocular motions intact. Lids and lashes normal. Conjunctiva and sclera are non-icteric and not injected. Cornea within normal limits. Periorbital areas with no swelling, redness, or edema. ENT: Nares patent. No nasal discharge, no septal abnormalities noted. Tympanic membranes are normal and external auditory canals are clear. Oropharynx with no redness, swelling, or masses, exudates, or evidence of obstruction, uvula midline. Mucous membranes moist. Neck: Trachea midline, no thyromegaly or masses palpated, and no cervical lymphadenopathy. Supple, full range of motion without nuchal rigidity, or vertebral point tenderness. No Meningismus. Chest/axilla: Normal chest wall appearance and motion. Nontender with no deformity. No lesions are appreciated. Cardiovascular: Regular rate and rhythm with a normal S1 and S2. No gallops, murmurs, or rubs. Normal PMI, no JVD. No pulse deficits. Respiratory: Lungs have equal breath sounds bilaterally, clear to auscultation and percussion. No rales, rhonchi or wheezes noted. No increased work of breathing, no retractions or nasal flaring. Abdomen/GI: Soft, non-tender, with normal bowel sounds. No distension or tympany. No guarding or rebound. No evidence of tenderness throughout. Back: No spinal tenderness. No costovertebral tenderness. Full range of motion. Male : Normal genitalia with no discharge or lesions. Skin: Warm, dry with normal turgor. Normal color with no rashes, no lesions, and no evidence of cellulitis. Neuro: Awake and alert, GCS 15, oriented to person, place, time, and situation. Cranial nerves II-XII grossly intact. Motor strength 5/5 in all extremities. Sensory grossly intact. Cerebellar exam normal. Normal gait. 22:01 Musculoskeletal/extremity: ROM: full active range of motion, full passive range of motion, Circulation is intact in all extremities. Sensation intact. Compartment Syndrome exam of affected extremity: is normal. DVT Exam: no swelling, negative Homans' sign noted on exam, no appreciated bluish discoloration, no erythema, no increased warmth, pain, tenderness. 23:04 ECG was reviewed by the Attending Physician. aj Vital Signs: 21:10 BP 142 / 85; Pulse 106; Resp 18; Temp 99; Pulse Ox 99% on R/A; Weight 104.33 kg; Height ea 5 ft. 8 in. (172.72 cm); 06/06 08:41 BP 113 / 56; Pulse 80; Resp 16; Temp 97; Pulse Ox 100% ; mp1 13:06 BP 128 / 72; Pulse 77; Resp 18; Temp 97.7; Pulse Ox 100% ; mp1 20:42 BP 136 / 94; Pulse 76; Resp 16; Temp 98.3(O); Pulse Ox 94% on R/A; Pain 0/10; fu 06/07 14:28 BP 143 / 86; Pulse 90; Resp 20; Temp 98.6(O); Pulse Ox 100% on R/A; tw2 06/05 21:10 Body Mass Index 34.97 (104.33 kg, 172.72 cm) ea Laceration: 06/05 22:07 Wound Repair of 4cm ( 1.6in ) subcutaneous laceration to dorsal aspect of left forearm. aj Linear shaped.. Distal neuro/vascular/tendon intact. Anesthesia: Local anesthetic administered with 10 mls of 1% lidocaine w/ Epi. Wound prep: Moderate cleansing with betadine by me. Skin closed with 8 5-0 Prolene using simple sutures and sterile technique. Dressed with Neosporin. Patient tolerated well. MDM: 21:11 Patient medically screened. aj 22:06 Differential diagnosis: drug withdrawal. acute psychotic break, depression, psychosis aj secondary to non-compliance. Data reviewed: vital signs, nurses notes, lab test result(s), EKG. Data interpreted: awake overnight monitor: rate is 106 beats/min, rhythm is regular, Pulse oximetry: on room air is 99 %. Test interpretation: by ED physician or midlevel provider: ECG, plain radiologic studies. Counseling: I had a detailed discussion with the patient and/or guardian regarding: the historical points, exam findings, and any diagnostic results supporting the discharge/admit diagnosis, lab results, the need for further work-up and treatment in the hospital. 06/06 07:53 ED course: Pt pending psychiatric transfer, recommend inpatient by [facility], awaiting transfer, medically cleared, sleeping comfortably. . 12:08 ED course: Pt walked out the back door/ambulance bay, has GIOVANNI, bill clerk called. Sitter rn states "just walked out". . 12:26 ED course: Pt brought back to room safely and unharmed by police. . rn 16:26 ED course: Pt sitting in room, with mother and girlfriend, calm. . rn 06/05 21:11 Order name: Acetaminophen [facility] 06/05 21:11 Order name: Basic Metabolic Panel; Complete Time: 23:09 [facility] 06/05 21:11 Order name: CBC with Diff; Complete Time: 21:57 [facility] 06/05 21:11 Order name: ETOH Level; Complete Time: 23:09 [facility] 06/05 21:11 Order name: Hepatic Function; Complete Time: 23:09 [facility] 06/05 21:11 Order name: PT-INR; Complete Time: 21:57 [facility] 06/05 21:11 Order name: Ptt, Activated; Complete Time: 21:57 [facility] 06/05 21:11 Order name: Salicylate; Complete Time: 23:09 [facility] 06/05 21:11 Order name: Urine Drug Screen; Complete Time: 23:09 [facility] 06/05 21:12 Order name: Acetaminophen Level; Complete Time: 23:09 [facility] 06/05 22:39 Order name: Urine Dipstick--Ancillary (enter results); Complete Time: 23:09 06/07 07:00 Order name: COVID-19 06/07 11:33 Order name: SARS-COV-2 RT PCR; Complete Time: 14:41 [facility] 06/05 21:11 Order name: EKG; Complete Time: 21:13 [facility] 06/05 21:11 Order name: EKG - Nurse/Tech; Complete Time: 21:23 [facility] 06/05 21:11 Order name: IV Saline Lock; Complete Time: 21:23 [facility] 06/05 21:11 Order name: Labs collected and sent; Complete Time: 21:23 [facility] 06/05 21:11 Order name: Urine Dipstick-Ancillary (obtain specimen); Complete Time: 23:00 [facility] 06/06 08:09 Order name: Diet Finger Food; Complete Time: 08:09 em1 06/05 22:01 Order name: Dressing - Wound; Complete Time: 22:02 aj 06/05 22:01 Order name: Gloves, Sterile; Complete Time: 22:02 aj 06/05 22:01 Order name: Setup Suture Tray; Complete Time: 22:02 aj EC/17 23:04 Rate is 101 beats/min. Rhythm is regular. QRS [place] is Normal. GA interval is normal. aj QRS interval is normal. QT interval is normal. No Q waves. T waves are Normal. No ST changes noted. Clinical impression: NSR w/ Non-specific ST/T Changes and No evidence of ischemia. Interpreted by me. Reviewed by me. Administered Medications: 21:23 Drug: NS 0.9% 1000 ml Route: IV; Rate: 1 bolus; Site: right forearm; mg2 22:57 Follow up: Response: No adverse reaction; IV Status: Completed infusion; IV Intake: mg2 1000ml 22:33 Drug: Lidocaine-Epinephrine -1%: (1:100,000) 10 ml {Note: administered by the mg2 provider.} Volume: 20 ml; Route: Infiltration; 22:57 Follow up: Response: No adverse reaction mg2 22:57 Drug: Tetanus-Diphtheria Toxoid Adult 0.5 ml {[employer]: [employer]. Exp: mg2 10/09/2022. Lot #: [id number]. } Route: IM; Site: right deltoid; 06/06 01:01 Follow up: Response: No adverse reaction mg2 01:00 Drug: Neosporin Ointment 1 application Route: Topical; Site: affected area; mg2 01:01 Follow up: Response: No adverse reaction mg2 03:56 Drug: Ativan 1 mg Route: IM; Site: left deltoid; ll2 04:39 Follow up: Response: No adverse reaction; Marked relief of symptoms; patient sleeping mg2 10:45 Drug: Ativan 1 mg Route: PO; bp 12:13 Follow up: Response: No adverse reaction bp 12:35 Drug: Ativan 1 mg Route: IM; Site: right deltoid; aa5 13:40 Follow up: Response: Anxiety decreased bp 17:20 Drug: Ativan 2 mg Route: IM; Site: right deltoid; bp 18:22 Follow up: Response: Anxiety decreased bp 22:37 Drug: Ativan 2 mg Route: IM; Site: left deltoid; fu 23:40 Follow up: Response: Anxiety decreased fu 06/07 13:00 Drug: Ativan 2 mg Route: PO; tw2 14:29 Follow up: Response: No adverse reaction; Marked relief of symptoms tw2 Disposition: 06/07/20 14:44 Discharged to Home. Impression: Substance abuse (ETOH), Depression, Suicidal Ideation. - Condition is Stable. - Discharge Instructions: Suicidal Feelings: How to Help Yourself, Helping Someone Who is Suicidal, Alcohol Intoxication, [id number], Major Depressive Disorder, [id number]. - Prescriptions for Ativan 1 mg Oral Tablet - take 1 tablet by ORAL route At bedtime As needed; 6 tablet. - Medication Reconciliation Form, Thank You Letter form. - Follow up: Private Physician; When: 2 - 3 days; Reason: If symptoms return, Further diagnostic work-up, Recheck today's complaints, Continuance of care, Re-evaluation by your physician. - Problem is new. - Symptoms have improved. Signatures: Dispatcher [employer] [facility] Fredy Hart, RN Pavel Lepe MD MD cha Rittger, Kevin, MD MD kdr Nieto, Roman, MD MD rn Calderon, Audri, RN RN aa5 Tova Madrid RN RN lp1 Cindy Estrada RN RN tw2 Kayleen Cedillo RN Garry Hernandez ea, RN Bowen Patel, RN RN Tevin Jesus, RN RN [facility] Teresita Ralph, RN RN ll2 Corrections: (The following items were deleted from the chart) 10: 07:01 CORONAVIRUS ordered. [facility] 14:43 06/05 22:10 06/05/2020 22:10 Transfer ordered to Psych Facility. Diagnosis is Major kdr depressive disorder, recurrent; Suicide attempt; Suicidal ideations. Reason for transfer: Higher level of care. Accepting physician is to psych. Condition is Stable. Problem is new. Symptoms have improved. [facility] 06/07 14:58 14:44 06/07/2020 14:44 Discharged to Home. Impression: Substance abuse (ETOH), tw2 Depression, Suicidal Ideation. Condition is Stable. Forms are Medication Reconciliation Form, Thank You Letter, Antibiotic Education, Prescription Opioid Use. Follow up: Private Physician; When: 2 - 3 days; Reason: If symptoms return, Further diagnostic work-up, Recheck today's complaints, Continuance of care, Re-evaluation by your physician. Problem is new. Symptoms have improved. kdr
[2020-06-05] MEDS ORDERED: LIDOCAINE 1% W/EPI 1:100,000 MDV 20 ML VIAL ONE (22:16)
[2020-06-05] MEDS ORDERED: TETANUS & DIPHTHERIA TOX,ADULT 0.5 ML VIAL ONE (22:52)
[2020-06-05 22:56] LABS: Barbiturates NEGATIVE (NEGATIVE); Benzodiazepines POSITIVE (NEGATIVE); Cocaine NEGATIVE (NEGATIVE); METHAMPHETAM NEGATIVE (NEGATIVE); Methadone NEGATIVE (NEGATIVE); Opiates NEGATIVE (NEGATIVE); Phencyclidine NEGATIVE (NEGATIVE); THC Cannibis NEGATIVE (NEGATIVE)
[2020-06-05 22:58] LABS: Urine Blood NEGATIVE (NEG); Urine Glucose NEGATIVE (NEG); Urine Protein NEGATIVE (NEG); Urine Specific Gravity >1.030 (1.005-1.030); Urine pH 5.5 (5.0-7.0)
[2020-06-06] MEDS ORDERED: LORazepam 2 MG/ML VIAL ONE ×4 (04:01→22:44)
[2020-06-06] MEDS ORDERED: LORAZEPAM 1 MG TABLET ONE (10:57)
[2020-06-07] MEDS ORDERED: LORAZEPAM 1 MG TABLET ONE (13:10)
[2020-06-07 15:48] VITALS: BP 143/86; TEMP 98.6; O2SAT 100
== END 2020-06-07 14:58 | disposition home or self-care (01) ==
LOC: ER 21:06
PROC: 0JQH0ZZ Repair Left Lower Arm Subcutaneous Tissue and Fascia, Open Approach (ICD-10-PCS; principal; 2020-06-07)
DX: F10.10 Alcohol abuse, uncomplicated (principal); F32.9 Major depressive disorder, single episode, unspecified; S51.812A Laceration without foreign body of left forearm, initial encounter; Z20.828 Contact with and (suspected) exposure to other viral communicable diseases; F90.9 Attention-deficit hyperactivity disorder, unspecified type; X78.9XXA Intentional self-harm by unspecified sharp object, initial encounter; Y93.89 Activity, other specified; Y92.89 Other specified places as the place of occurrence of the external cause; Z23 Encounter for immunization; Z88.8 Allergy status to other drugs, medicaments and biological substances
CPT/HCPCS: 36415; 80048; 80076; 80307; 80320; 80329; 81003; 85025; 85610; 85730; 90471; 90714; 93005; 96360; 96361; 96372; 99285; J7030; U0003

== ENCOUNTER 2020-06-11 14:17 | Emergency (ER) | payer SELFPAY ==
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
--- NOTE | 2020-06-11 15:35 | EDPHYS ---
Physician Documentation [facility] Name: Chandan Kimball Age: 20 yrs Sex: Male : 2000 Arrival Date: 06/11/2020 Time: 14:20 Bed 14 Private MD: ED Physician Ramón Johnson HPI: 06/11 15:03 This 20 yrs old Male presents to ER via Ambulatory with complaints of Suture kb Removal. 15:03 The patient has sutures on the dorsal aspect of left forearm. Previous treatment: The kb patient was initially treated 6 day(s) ago, the care was rendered at [facility]. Sutures/ayo progress: The patient has no c/o's. The wound is well-healing with no redness, swelling, discharge, or dehiscence reported. The patient has not experienced similar symptoms in the past. The patient has not recently seen a physician. Historical: - Allergies: 14:34 Hydroxyzine; ss - PMHx: 14:34 ADD/ADHD; PTSD-self dx; ss - Immunization history:: Adult Immunizations up to date. - Social history:: Smoking status: unknown. ROS: 15:02 Constitutional: Negative for fever, chills, and weight loss, Cardiovascular: Negative kb for chest pain, palpitations, and edema, Respiratory: Negative for shortness of breath, cough, wheezing, and pleuritic chest pain, Abdomen/GI: Negative for abdominal pain, nausea, vomiting, diarrhea, and constipation, MS/Extremity: Negative for injury and deformity, Neuro: Negative for headache, weakness, numbness, tingling, and seizure. 15:02 Back: Positive for pain at rest, pain with movement, of the left scapular area. 15:02 Skin: Positive for of the dorsal aspect of left forearm, sutures in place. Exam: 15:02 Constitutional: This is a well developed, well nourished patient who is awake, alert, kb and in no acute distress. Head/Face: Normocephalic, atraumatic. Chest/axilla: Normal chest wall appearance and motion. Nontender with no deformity. No lesions are appreciated. Cardiovascular: Regular rate and rhythm with a normal S1 and S2. No gallops, murmurs, or rubs. Normal PMI, no JVD. No pulse deficits. Respiratory: Lungs have equal breath sounds bilaterally, clear to auscultation and percussion. No rales, rhonchi or wheezes noted. No increased work of breathing, no retractions or nasal flaring. Abdomen/GI: Soft, non-tender, with normal bowel sounds. No distension or tympany. No guarding or rebound. No evidence of tenderness throughout. Back: No spinal tenderness. No costovertebral tenderness. Full range of motion. MS/ Extremity: Pulses equal, no cyanosis. Neurovascular intact. Full, normal range of motion. Neuro: Awake and alert, GCS 15, oriented to person, place, time, and situation. Cranial nerves II-XII grossly intact. Motor strength 5/5 in all extremities. Sensory grossly intact. Cerebellar exam normal. Normal gait. 15:02 Skin: Wound recheck: Suture laceration closure: the wound is healing well, the edges are well approximated, no evidence of dehiscence, no drainage, no erythema, no swelling. Vital Signs: 14:32 BP 151 / 84; Pulse 83; Resp 16; Temp 97.9(TE); Pulse Ox 99% ; Weight 113.4 kg; Height 5 ss ft. 9 in. (175.26 cm); Pain 0/10; 14:32 Body Mass Index 36.92 (113.40 kg, 175.26 cm) ss Procedures: 15:02 Suture/Staple removal: Removed 18 sutures, from dorsal aspect of left forearm, site kb appears well healed, Patient tolerated well. MDM: 14:41 Patient medically screened. kb 15:02 Data reviewed: vital signs, nurses notes. Data interpreted: Pulse oximetry: on room air kb is 99 %. Interpretation: normal. 16:05 Counseling: I had a detailed discussion with the patient and/or guardian regarding: the kb historical points, exam findings, and any diagnostic results supporting the discharge/admit diagnosis, the need for outpatient follow up, a family practitioner, to return to the emergency department if symptoms worsen or persist or if there are any questions or concerns that arise at home. Administered Medications: No medications were administered Disposition: 15:46 Co-signature as Attending Physician, Ramón Johnson MD I agree with the assessment and kdr plan of care. Disposition: 06/11/20 16:05 Discharged to Home. Impression: Encounter for removal of sutures. - Condition is Stable. - Discharge Instructions: Suture Removal, Care After. - Medication Reconciliation Form, Thank You Letter, Antibiotic Education, Prescription Opioid Use form. - Follow up: Private Physician; When: 2 - 3 days; Reason: Recheck today's complaints, Continuance of care, Re-evaluation by your physician. Follow up: Emergency Department; When: As needed; Reason: Worsening of condition. Signatures: Dispatcher [employer] EDIL Minal Major, SHARAN-C [employer]-Ramón Mcfarland MD MD kdr Smirch, Shelby, RN RN ss Corrections: (The following items were deleted from the chart) 15:34 15:34 06/11/2020 15:34 Patient left the facility after being seen by provider. Reason ss stated they are leaving due to (see nurse's notes). Condition is Stable. ss 16:03 15:02 Counseling: I had a detailed discussion with the patient and/or guardian kb regarding: the historical points, exam findings, and any diagnostic results supporting the discharge/admit diagnosis, radiology results, the need for outpatient follow up, a family practitioner, to return to the emergency department if symptoms worsen or persist or if there are any questions or concerns that arise at home, kb 16:05 15:34 06/11/2020 15:34 Patient left the facility after being seen by provider. Reason kb stated they are leaving due to (see nurse's notes). Condition is Stable. ss 16:06 16:05 06/11/2020 16:05 Discharged to Home. Impression: Encounter for removal of kb sutures. Condition is Stable. Forms are Medication Reconciliation Form, Thank You Letter, Antibiotic Education, Prescription Opioid Use. Follow up: Private Physician; When: 2 - 3 days; Reason: Recheck today's complaints, Continuance of care, Re-evaluation by your physician. Follow up: Emergency Department; When: As needed; Reason: Worsening of condition. kb
--- NOTE | 2020-06-11 15:35 | ER ---
Nurse's Notes [facility] Name: Chandan Kimball Age: 20 yrs Sex: Male : 2000 Arrival Date: 06/11/2020 Time: 14:20 Bed 14 Private MD: Diagnosis: Encounter for removal of sutures Presentation: 06/11 14:32 Chief complaint: Patient states: Here to have sutures removed from L forearm. Also ss reports L upper back pain x 5 days. Unknown injury. Coronavirus screen: Client denies travel out of the [place] in the last 14 days. Ebola Screen: Patient denies exposure to infectious person. Patient denies travel to an Ebola-affected area in the 21 days before illness onset. Initial Sepsis Screen: Does the patient meet any 2 criteria? No. Patient's initial sepsis screen is negative. Does the patient have a suspected source of infection? No. Patient's initial sepsis screen is negative. Risk Assessment: Do you want to hurt yourself or someone else? Patient reports no desire to harm self or others. Onset of symptoms was June 05, 2020. 14:32 Method Of Arrival: Ambulatory ss 14:32 Acuity: TESS 4 ss Historical: - Allergies: 14:34 Hydroxyzine; ss - PMHx: 14:34 ADD/ADHD; PTSD-self dx; ss - Immunization history:: Adult Immunizations up to date. - Social history:: Smoking status: unknown. Screenin:34 Abuse screen: Denies threats or abuse. Denies injuries from another. Nutritional ss screening: No deficits noted. Tuberculosis screening: Never had TB. Fall Risk None identified. Assessment: 14:34 General: Appears in no apparent distress. comfortable, Behavior is calm, cooperative. ss Pain: Denies pain. Neuro: Level of Consciousness is awake, alert, obeys commands, Oriented to person, place, time, situation. Respiratory: Respiratory effort is even, unlabored, Respiratory pattern is regular, symmetrical. GI: No signs and/or symptoms were reported involving the gastrointestinal system. Derm: Skin is intact, is healthy with good turgor, Skin is pink, warm \T\ dry. normal. 15:31 Reassessment: called from lobby to exam room. No answer. ss 15:32 Reassessment: called number on file. Family answered who stated patient left because he ss needed to be at work. Vital Signs: 14:32 BP 151 / 84; Pulse 83; Resp 16; Temp 97.9(TE); Pulse Ox 99% ; Weight 113.4 kg; Height 5 ss ft. 9 in. (175.26 cm); Pain 0/10; 14:32 Body Mass Index 36.92 (113.40 kg, 175.26 cm) ss ED Course: 14:20 Patient arrived in ED. ds1 14:34 Triage completed. ss 14:34 Arm band placed on left wrist. ss 14:34 Patient has correct armband on for positive identification. Bed in low position. Call ss light in reach. 14:34 No provider procedures requiring assistance completed. Patient did not have IV access ss during this emergency room visit. Removal of Removed sutures from dorsal aspect of left forearm Suture site is well healed Patient tolerated well. 14:41 Minal Major [facility]-C [facility] kb 14:41 Ramón Johnson MD is Attending Physician. kb 15:33 Dyan Valencia, QIAN is Primary Nurse. ca1 16:04 Primary Nurse role handed off by Dyan Valencia, QIAN kb Administered Medications: No medications were administered Outcome: 15:33 Eloped from waiting room, after seeing physician ss 15:34 Patient left the ED. ss 16:05 Discharge ordered by MD. kb 16:06 Patient left the ED. kb Signatures: Minal Major FNP-C FNP-Jazmín JeterKatelyn rodriguez ds1 Yanira Sinha RN RN ss Dyan Valencia RN RN ca1 Corrections: (The following items were deleted from the chart) 14:36 14:32 Chief complaint: Patient states: Here to have sutures removed from L forearm. ss 14:36 14:32 Acuity: TESS 5 ss ss
[2020-06-11 16:18] VITALS: BP 151/84; TEMP 97.9; O2SAT 99
== END 2020-06-11 16:06 | disposition home or self-care (01) ==
LOC: ER 14:17
DX: Z48.02 Encounter for removal of sutures (principal)
CPT/HCPCS: 99281

== ENCOUNTER 2020-06-14 02:05 | Emergency (ER) | payer SELFPAY ==
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
[2020-06-14 02:43] LABS: Absolute Lymphocytes (CBC) 2.2 K/uL (0.7-4.9); Basophils % 0.9 % (0-1.3); Hematocrit 39.2 % (39.6-49.0); Lymphocytes % 23.2 % (15.3-44.8); RBC Red Blood Cell Count 4.83 M/uL (4.33-5.43)
[2020-06-14 02:45] LABS: Protime INR 1.02
[2020-06-14 03:02] LABS: ALT/SGPT 26 U/L (12-78); AST/SGOT 17 U/L (15-37); Albumin 4.2 g/dL (3.4-5.0); Alkaline Phosphatase 91 U/L (45-117); BUN Blood Urea Nitrogen 13 mg/dL (7-18); Bicarbonate 22 mmol/L (21-32); Bilirubin Direct 0.2 mg/dL (0-0.2); Bilirubin Total 0.9 mg/dL (0.2-1.0); Glucose Level 104 mg/dL (74-106); Potassium 3.3 mmol/L (3.5-5.1); Protein, Total 8.4 g/dL (6.4-8.2); Sodium Level 142 mmol/L (136-145)
[2020-06-14 03:24] LABS: Barbiturates NEGATIVE (NEGATIVE); Benzodiazepines POSITIVE (NEGATIVE); Cocaine NEGATIVE (NEGATIVE); METHAMPHETAM NEGATIVE (NEGATIVE); Methadone NEGATIVE (NEGATIVE); Opiates NEGATIVE (NEGATIVE); Phencyclidine NEGATIVE (NEGATIVE); THC Cannibis NEGATIVE (NEGATIVE)
[2020-06-14 03:56] LABS: Urine Blood NEGATIVE (NEG); Urine Glucose NEGATIVE (NEG); Urine Protein NEGATIVE (NEG); Urine pH 5.5 (5.0-7.0)
[2020-06-14] MEDS ORDERED: NA CHLORIDE 0.9% 1,000 ML ONE (04:04)
--- NOTE | 2020-06-14 07:30 | EDPHYS ---
Physician Documentation [facility] Name: Chandan Kimball Age: 20 yrs Sex: Male : 2000 Arrival Date: 06/14/2020 Time: 02:03 Bed 7 Private MD: ED Physician Pavel Dexter HPI: 06/14 02:45 This 20 yrs old Male presents to ER via EMS with complaints of Psych Problem. mh7 02:45 The patient presents to the emergency department with anxiety, over unknown mh7 circumstances, a history of substance abuse, Type: beer, Xanax. Onset: The symptoms/episode began/occurred today. Past psychiatric history: Prior diagnosis: Anxiety, Psychiatric medications include:. Associated signs and symptoms: Pertinent positives; anxiety, substance abuse, Pertinent negatives: abdominal pain, chest pain, chills, delusions, depression, fever, hallucinations, headache, homicidal ideation, nausea, night sweats, palpitations, paranoia, shortness of breath, suicide ideation, tremor, vomiting. Severity of symptoms: At their worst the symptoms were moderate today, in the emergency department the symptoms have improved moderately. Per EMS family called due to patient taking overdose of Xanax tablets. Patient states that he took two Xanax just so he could relax. he also admits to drinking six beers tonight. He denies any suicidal or homicidal ideations. He also denies any auditory or visual hallucinations.. Historical: - Allergies: 02:18 Hydroxyzine; rv - PMHx: 02:18 ADD/ADHD; PTSD-self dx; rv - PSHx: 02:18 None; rv - Immunization history:: Adult Immunizations up to date. - Social history:: Smoking status: Reported history of juuling and/or vaping. ROS: 02:45 Constitutional: Negative for fever, chills, and weight loss, Eyes: Negative for injury, mh7 pain, redness, and discharge, ENT: Negative for injury, pain, and discharge, Neck: Negative for injury, pain, and swelling, Cardiovascular: Negative for chest pain, palpitations, and edema, Respiratory: Negative for shortness of breath, cough, wheezing, and pleuritic chest pain, Abdomen/GI: Negative for abdominal pain, nausea, vomiting, diarrhea, and constipation, Back: Negative for injury and pain, : Negative for injury, bleeding, discharge, and swelling, MS/Extremity: Negative for injury and deformity, Skin: Negative for injury, rash, and discoloration, Neuro: Negative for headache, weakness, numbness, tingling, and seizure, Allergy/Immunology: Negative for hives, rash, and allergies, Endocrine: Negative for neck swelling, polydipsia, polyuria, polyphagia, and marked weight changes, Hematologic/Lymphatic: Negative for swollen nodes, abnormal bleeding, and unusual bruising. Exam: 02:45 Head/Face: Normocephalic, atraumatic. Eyes: Pupils equal round and reactive to light, mh7 extra-ocular motions intact. Lids and lashes normal. Conjunctiva and sclera are non-icteric and not injected. Cornea within normal limits. Periorbital areas with no swelling, redness, or edema. Neck: Trachea midline, no thyromegaly or masses palpated, and no cervical lymphadenopathy. Supple, full range of motion without nuchal rigidity, or vertebral point tenderness. No Meningismus. Chest/axilla: Normal chest wall appearance and motion. Nontender with no deformity. No lesions are appreciated. 02:45 Respiratory: Lungs have equal breath sounds bilaterally, clear to auscultation and percussion. No rales, rhonchi or wheezes noted. No increased work of breathing, no retractions or nasal flaring. Abdomen/GI: Soft, non-tender, with normal bowel sounds. No distension or tympany. No guarding or rebound. No evidence of tenderness throughout. Back: No spinal tenderness. No costovertebral tenderness. Full range of motion. 02:45 MS/ Extremity: Pulses equal, no cyanosis. Neurovascular intact. Full, normal range of motion. Neuro: Awake and alert, GCS 15, oriented to person, place, time, and situation. Cranial nerves II-XII grossly intact. Motor strength 5/5 in all extremities. Sensory grossly intact. Cerebellar exam normal. Normal gait. 02:45 Constitutional: The patient appears in no acute distress, alert, awake, anxious, Appears intoxicated 02:45 Cardiovascular: Rate: tachycardic, Rhythm: regular, Pulses: no pulse deficits are appreciated, Heart sounds: normal, normal S1and S2, Edema: is not appreciated, JVD: is not appreciated. 02:45 Skin: injury, abrasion(s), small abrasion noted, of the left forearm, healing. 02:45 Psych: Behavior/mood is cooperative, anxious, Affect is calm, Oriented to person, place, time, Patient has no thoughts/intents to harm self or others. Judgement / Insight is normal. Memory is normal. Delusions/hallucinations are not present. 06:21 ECG was reviewed by the Attending Physician. [facility] Vital Signs: 02:13 BP 117 / 66; Pulse 102; Resp 19; Temp 98.5; Pulse Ox 99% ; Weight 113.4 kg; Height 5 rv ft. 7 in. (170.18 cm); Pain 0/10; 02:13 Body Mass Index 39.16 (113.40 kg, 170.18 cm) rv MDM: 02:18 Patient medically screened. [facility] 07:17 Differential diagnosis: drug withdrawal. depression, Suicidal ideation. Data reviewed: [facility] vital signs, nurses notes, EMS record, old medical records, lab test result(s), CBC, drug level(s), electrolytes, urinalysis, urine drug screen, EKG. Data interpreted: Pulse oximetry: on room air is 99 %. Interpretation: normal. Transition of care: After a detail discussion of the patient's case, care is transferred to Pavle Dexter MD. ED course: Discussed with [facility] and decision to do [facility] for inpatient psychiatric evaluation for depression and suicidal ideation.. 07:19 Patient medically screened. aj 07:48 ED course: pt not suicidal, wants to go home, get a job, will not drink anymore, will aj return if symptoms worsen. 06/14 02:19 Order name: Acetaminophen; Complete Time: 03:08 [facility] 06/14 02:19 Order name: Basic Metabolic Panel; Complete Time: 03:08 06/14 02:19 Order name: CBC with Diff; Complete Time: 03:08 06/14 02:19 Order name: ETOH Level; Complete Time: 03:08 06/14 02:19 Order name: Hepatic Function; Complete Time: 03:08 06/14 02:19 Order name: PT-INR; Complete Time: 03:08 06/14 02:19 Order name: Ptt, Activated; Complete Time: 03:08 06/14 02:19 Order name: Salicylate; Complete Time: 03:08 06/14 02:19 Order name: Urine Drug Screen; Complete Time: 03:29 7 06/14 02:19 Order name: EKG; Complete Time: 02:20 [facility] 06/14 02:46 Order name: Urine Dipstick--Ancillary (enter results); Complete Time: 03:58 oe 06/14 07:12 Order name: Diet Finger Food; Complete Time: 07:12 tw2 06/14 07:32 Order name: COVID-19 bd 06/14 02:19 Order name: EKG - Nurse/Tech; Complete Time: 02:20 7 06/14 02:19 Order name: IV Saline Lock; Complete Time: 02:20 7 06/14 02:19 Order name: Labs collected and sent; Complete Time: 02:20 [facility] 06/14 02:19 Order name: Urine Dipstick-Ancillary (obtain specimen); Complete Time: 02:38 mh7 EC:21 Rate is 105 beats/min. Rhythm is regular, Sinus tachycardia. QRS [place] is Normal. [place] mh7 interval is normal. QRS interval is normal. QT interval is normal. No Q waves. T waves are Normal. No ST changes noted. Clinical impression: LVH and Sinus tachycardia. Administered Medications: 03:59 Drug: NS 0.9% 1000 ml Route: IV; Rate: 1 bolus; Site: left hand; 07:00 Follow up: Response: No adverse reaction; IV Status: Completed infusion; IV Intake: jl7 1000ml Disposition: 06/14/20 07:50 Discharged to Home. Impression: Suicidal ideations - resolved, Adjustment disorder with depressed mood. - Condition is Stable. - Discharge Instructions: Alcohol Use Disorder, Suicidal Feelings: How to Help Yourself, Helping Someone Who is Suicidal, Alcohol Abuse and Nutrition, Stress and Stress Management. - Medication Reconciliation Form, Thank You Letter, Antibiotic Education, Prescription Opioid Use form. - Follow up: Private Physician; When: 2 - 3 days; Reason: Recheck today's complaints, Continuance of care, Re-evaluation by your physician. Follow up: Jeffrey Gabriel MD; When: 2 - 3 days; Reason: Recheck today's complaints, Re-evaluation by your physician. - Problem is new. - Symptoms have improved. Signatures: Dispatcher [employer] Pavel Burns MD MD cha Leal, Jahala, RN RN jl7 Phoebe Garza Ronaldo, RN RN Yogesh Bolden MD MD mh7 Corrections: (The following items were deleted from the chart) 07:48 07:30 06/14/2020 07:30 Transfer ordered to Psych Facility. Diagnosis is Major aj depressive disorder, recurrent; Suicidal ideations. Reason for transfer: Higher level of care. Accepting physician is to Psych. Condition is Fair. Problem is new. Symptoms have improved. aj 07:50 07:50 06/14/2020 07:50 Discharged to Home. Impression: Suicidal ideations - resolved; aj Adjustment disorder with depressed mood. Condition is Stable. Forms are Medication Reconciliation Form, Thank You Letter, Antibiotic Education, Prescription Opioid Use. Follow up: Private Physician; When: 2 - 3 days; Reason: Recheck today's complaints, Continuance of care, Re-evaluation by your physician. Problem is new. Symptoms have improved. [facility] 08:00 07:50 06/14/2020 07:50 Discharged to Home. Impression: Suicidal ideations - resolved; jl7 Adjustment disorder with depressed mood. Condition is Stable. Forms are Medication Reconciliation Form, Thank You Letter, Antibiotic Education, Prescription Opioid Use. Follow up: Private Physician; When: 2 - 3 days; Reason: Recheck today's complaints, Continuance of care, Re-evaluation by your physician. Follow up: Jeffrey Gabriel; When: 2 - 3 days; Reason: Recheck today's complaints, Re-evaluation by your physician. Problem is new. Symptoms have improved. aj
--- NOTE | 2020-06-14 07:30 | ER ---
Nurse's Notes [facility] Name: Chandan Kimball Age: 20 yrs Sex: Male : 2000 Arrival Date: 06/14/2020 Time: 02:03 Bed 7 Private MD: Diagnosis: Suicidal ideations-resolved;Adjustment disorder with depressed mood Presentation: 06/14 02:13 Chief complaint: EMS states: FAMILY SAID THE PATIENT TOOK 60 PILLS OF XANAX BECAUSE HE rv WANTED TO KILL HIMSELF. HE THEN CHANGED HIS STORY TO EMT THAT HE ONLY TOOK 5 PILLS, AND HE DOES NOT INTEND TO KILL HIMSELF. HE ONLY TOOK THE PILLS TO HELP HIM GO TO SLEEP. PATIENT ADMITS HAVING 6 BOTTLES OF BEER TONIGHT. Coronavirus screen: At this time, unable to obtain information related to travel outside the [place] Ebola Screen: No symptoms or risks identified at this time. Initial Sepsis Screen: Does the patient meet any 2 criteria? No. Patient's initial sepsis screen is negative. Does the patient have a suspected source of infection? No. Patient's initial sepsis screen is negative. Risk Assessment: Do you want to hurt yourself or someone else? Other: PATIENT DENIES THAT HE WANTED TO HURT HIMSELF. Onset of symptoms is unknown. 02:13 Method Of Arrival: EMS: [facility] rv 02:13 Acuity: TESS 2 rv Triage Assessment: 02:18 General: Appears unkempt, Behavior is drowsy. Pain: Denies pain. EENT: No signs and/or rv symptoms were reported regarding the EENT system. Neuro: Level of Consciousness is obeys commands, Oriented to person, place, time, situation. Cardiovascular: Patient's skin is warm and dry. Rhythm is sinus tachycardia. Respiratory: Airway is patent Respiratory effort is even, unlabored, Breath sounds are clear bilaterally. Derm: Skin is intact. Historical: - Allergies: 02:18 Hydroxyzine; rv - PMHx: 02:18 ADD/ADHD; PTSD-self dx; rv - PSHx: 02:18 None; rv - Immunization history:: Adult Immunizations up to date. - Social history:: Smoking status: Reported history of juuling and/or vaping. Screenin:20 Abuse screen: Denies threats or abuse. Denies injuries from another. Nutritional rv screening: No deficits noted. Tuberculosis screening: No symptoms or risk factors identified. Fall Risk None identified. Assessment: 02:33 Reassessment: WATCH OUT FOR RESPIRATORY DEPRESSION, FOR TOXIC WORK UP, MONITOR UNTIL rv CLOSE TO BASELINE NORMAL. CASE # [id number]. 07:00 Reassessment: Patient appears in no apparent distress at this time. Patient and/or tw2 family updated on plan of care and expected duration. Pain level reassessed. Patient is alert, oriented x 3, equal unlabored respirations, skin warm/dry/pink. pt talking with [employer] at this time. 07:00 Reassessment: sitter at bedside and remains with pt throughout shift. tw2 07:45 Reassessment: Dr. Dexter at bedside assessing pt. jl7 07:59 Reassessment: Patient is alert, oriented x 3, equal unlabored respirations, skin tw2 warm/dry/pink. pts belongings given back to pt from security at this time. pt calm and cooperative. Psych: 02:20 Subjective: Patient's mood is sad. Objective: Patient is cooperative, Speech is slow. rv Interventions: Removed personal items and placed in bag. Patient placed in hospital gown. Searched person for dangerous items. Urine collected and sent for urine drug test. Belonging list filled out. Suicide Risk Assessment: Sad Person Scale: Sex of patient: Male: Score 1 point. Age of patient: Score 1 point if patient 15-34. Depression: Score 1 point if signs of depression are present. Substance Abuse: Score 1 point if patient abuses alcohol or drugs. Rational Thinking: Score 1 point if patient is lacking rational thinking. Social Support: Score 0 if social support is present/available. Organized Plan: Score 0 if patient did not have an organized plan in place. Relationship: Score 0 point if patient has a spouse or domestic partner. Chronic Sickness: Score 0 point if patient does not have a chronic illness, debilitating, or severe disorder. TOTAL POINTS: If total points are 5-6, proposed clinical action is to strongly consider hospitalization, depending upon confidence in the follow-up arrangement. Implement suicide precautions. Safety Checks:. 02:22 Pt denies substance abuse. rv 02:35 Commitment: Patient will be a voluntary commitment. wh Vital Signs: 02:13 BP 117 / 66; Pulse 102; Resp 19; Temp 98.5; Pulse Ox 99% ; Weight 113.4 kg; Height 5 rv ft. 7 in. (170.18 cm); Pain 0/10; 02:13 Body Mass Index 39.16 (113.40 kg, 170.18 cm) rv ED Course: 02:03 Patient arrived in ED. sg 02:09 Yogesh Bolden MD is Attending Physician. 7 02:13 Dejan Vo, RN is Primary Nurse. rv 02:18 Triage completed. rv 02:18 Arm band placed on right wrist. Patient placed in the treatment room, on a stretcher, rv Patient notified of wait time. 02:20 Patient has correct armband on for positive identification. Bed in low position. Call rv light in reach. Side rails up X 1. hall monitor on. Pulse ox on. NIBP on. 02:20 No provider procedures requiring assistance completed. Maintain EMS IV. Dressing rv intact. Good blood return noted. Site clean \T\ dry. Gauge \T\ site: G20 LEFT HAND. 02:53 Urine Drug Screen Sent. oe 05:33 called [facility] spoke to Nataly to have a screener evaluate the patient. mw2 07:12 Primary Nurse role handed off by Dejan Vo, RN tw2 07:12 Cindy Estrada, QIAN is Primary Nurse. tw2 07:19 Attending Physician role handed off by Yogesh Bolden MD aj 07:19 Pavel Dexter MD is Attending Physician. aj 07:50 Jeffrey Gabriel MD is Referral Physician. aj 07:56 IV discontinued, intact, bleeding controlled, No redness/swelling at site. jl7 Administered Medications: 03:59 Drug: NS 0.9% 1000 ml Route: IV; Rate: 1 bolus; Site: left hand; 07:00 Follow up: Response: No adverse reaction; IV Status: Completed infusion; IV Intake: jl7 1000ml Intake: 07:00 IV: 1000ml; Total: 1000ml. jl7 Outcome: 07:30 ER care complete, transfer ordered by . aj 07:50 Discharge ordered by . aj 07:56 Discharged to home ambulatory. jl7 07:56 Condition: stable 07:56 Discharge instructions given to patient, Instructed on discharge instructions, follow up and referral plans. Demonstrated understanding of instructions, follow-up care. 08:00 Patient left the ED. jl7 Signatures: Fredy Hart, RN RN sg Pavel Dexter MD MD cha Wise, Tara, RN RN tw2 Lázaro Forman Jahala RN RN jl7 Phoebe Garza, Arsenio mw2 Dejan Vo RN RN rv Yogesh Bolden MD MD 7 Corrections: (The following items were deleted from the chart) 02:34 02:33 Reassessment: WATCH OUT FOR RESPIRATORY DEPRESSION, FOR TOXIC WORK UP, MONITOR rv UNTIL CLOSE TO BASELINE NORMAL. rv
[2020-06-14 08:24] VITALS: BP 117/66; TEMP 98.5; O2SAT 99
== END 2020-06-14 08:00 | disposition home or self-care (01) ==
LOC: ER 02:05
DX: F43.21 Adjustment disorder with depressed mood (principal); Z20.828 Contact with and (suspected) exposure to other viral communicable diseases; Z88.8 Allergy status to other drugs, medicaments and biological substances; Z87.891 Personal history of nicotine dependence
CPT/HCPCS: 36415; 80048; 80076; 80307; 80320; 80329; 81003; 85025; 85610; 85730; 93005; 96360; 96361; 99285; J7030; U0002

== ENCOUNTER 2022-01-21 18:15 | Emergency (ER) | payer SELFPAY ==
--- OUTSIDE RECORDS SUMMARY | 2022-01-21 18:18 | XMS REPORT | Continuity of Care Document ---
:2000 Author Organization [facility] t Address [address] [place] [address] Care Team Providers Name Role Phone Unavailable Unavailable Unavailable Problems This patient has no known problems. Allergies, Adverse Reactions, Alerts Allergy Allergy Status Severity Reaction(s) Onset Inactive Treating Comm ents Source Name Type Date Date Clinician No Known DA Active U [facility] Drug 11-22 Allergie 00:00: s 00 Medications This patient has no known medications. Vital Signs Vital Name Observation Time Observation Value Comments Source 02 Sat by Pulse Oximetry 2020-11-22 18:20:03 100 /min Body Mass Index 2020-11-22 18:20:03 38.4 Height 2020-11-22 18:20:03 175.26\S\69 Pulse Rate 2020-11-22 18:20:03 77 /min Respiratory Rate 2020-11-22 18:20:03 16 /min Temperature 2020-11-22 18:20:03 36.9\S\98.4 Weight 2020-11-22 18:20:03 909525.016\S\4160 Respiratory 2020-11-22 18:20:03 No respiratory distress /min Respiratory 2020-11-22 18:19:32 No respiratory distress /min 02 Sat by Pulse Oximetry 2020-11-22 18:19:32 100 /min Body Mass Index 2020-11-22 18:19:32 38.4 Height 2020-11-22 18:19:32 175.26\S\69 Pulse Rate 2020-11-22 18:19:32 77 /min Respiratory Rate 2020-11-22 18:19:32 16 /min Temperature 2020-11-22 18:19:32 36.9\S\98.4 Weight 2020-11-22 18:19:32 521667.016\S\4160 Respiratory 2020-11-22 18:19:01 No respiratory distress /min 02 Sat by Pulse Oximetry 2020-11-22 18:19:01 100 /min Body Mass Index 2020-11-22 18:19:01 38.4 Height 2020-11-22 18:19:01 175.26\S\69 Pulse Rate 2020-11-22 18:19:01 77 /min Respiratory Rate 2020-11-22 18:19:01 16 /min Temperature 2020-11-22 18:19:01 36.9\S\98.4 Weight 2020-11-22 18:19:01 271882.016\S\4160 Respiratory 2020-11-22 17:57:54 No respiratory distress /min 02 Sat by Pulse Oximetry 2020-11-22 17:57:54 100 /min Body Mass Index 2020-11-22 17:57:54 38.4 Height 2020-11-22 17:57:54 175.26\S\69 Pulse Rate 2020-11-22 17:57:54 77 /min Respiratory Rate 2020-11-22 17:57:54 16 /min Temperature 2020-11-22 17:57:54 36.9\S\98.4 Weight 2020-11-22 17:57:54 096692.016\S\4160 Respiratory 2020-11-22 17:40:59 No respiratory distress /min 02 Sat by Pulse Oximetry 2020-11-22 17:40:59 100 /min Body Mass Index 2020-11-22 17:40:59 38.4 Height 2020-11-22 17:40:59 175.26\S\69 Pulse Rate 2020-11-22 17:40:59 77 /min Respiratory Rate 2020-11-22 17:40:59 16 /min Temperature 2020-11-22 17:40:59 36.9\S\98.4 Weight 2020-11-22 17:40:59 436895.016\S\4160 Respiratory 2020-11-22 15:49:27 No respiratory distress /min 02 Sat by Pulse Oximetry 2020-11-22 15:49:27 100 /min Body Mass Index 2020-11-22 15:49:27 38.4 Height 2020-11-22 15:49:27 175.26\S\69 Pulse Rate 2020-11-22 15:49:27 77 /min Respiratory Rate 2020-11-22 15:49:27 16 /min Temperature 2020-11-22 15:49:27 36.9\S\98.4 Weight 2020-11-22 15:49:27 959375.016\S\4160 Respiratory 2020-11-22 14:18:16 No respiratory distress /min 02 Sat by Pulse Oximetry 2020-11-22 14:18:16 100 /min Body Mass Index 2020-11-22 14:18:16 38.4 Height 2020-11-22 14:18:16 175.26\S\69 Pulse Rate 2020-11-22 14:18:16 77 /min Respiratory Rate 2020-11-22 14:18:16 16 /min Temperature 2020-11-22 14:18:16 36.9\S\98.4 Weight 2020-11-22 14:18:16 846994.016\S\4160 Respiratory 2020-11-22 13:27:03 No respiratory distress /min 02 Sat by Pulse Oximetry 2020-11-22 13:27:03 100 /min Body Mass Index 2020-11-22 13:27:03 38.4 Height 2020-11-22 13:27:03 175.26\S\69 Pulse Rate 2020-11-22 13:27:03 77 /min Respiratory Rate 2020-11-22 13:27:03 16 /min Temperature 2020-11-22 13:27:03 36.9\S\98.4 Weight 2020-11-22 13:27:03 877805.016\S\4160 02 Sat by Pulse Oximetry 2020-11-22 12:11:49 100 /min Body Mass Index 2020-11-22 12:11:49 38.4 Height 2020-11-22 12:11:49 175.26\S\69 Pulse Rate 2020-11-22 12:11:49 77 /min Respiratory Rate 2020-11-22 12:11:49 16 /min Temperature 2020-11-22 12:11:49 36.9\S\98.4 Weight 2020-11-22 12:11:49 857810.016\S\4160 WEIGHT 2020-11-22 12:09:00 117.281104 kg HEIGHT 2020-11-22 12:09:00 175.26 cm Procedures This patient has no known procedures. Results This patient has no known results.
[2022-01-21] MEDS ORDERED: KETOROLAC 30 MG/ML INJ ONE (18:45)
[2022-01-21] MEDS ORDERED: DIAZEPAM 10 MG/2 ML INJ SYRINGE ONE (18:45)
[2022-01-21 18:59] LABS: Absolute Lymphocytes (CBC) 2.4 K/uL (0.7-4.9); Hematocrit 41.4 % (39.6-49.0); Lymphocytes % 19.9 % (15.3-44.8); MPV 8.7 fL (7.6-11.3); RBC Red Blood Cell Count 5.15 M/uL (4.33-5.43)
[2022-01-21 19:14] LABS: Albumin 3.9 g/dL (3.4-5.0); Bilirubin Total 0.5 mg/dL (0.2-1.0); Potassium 3.6 mmol/L (3.5-5.1)
--- NOTE | 2022-01-21 20:14 | RAD REPORT ---
EXAM DESCRIPTION: Gonzalo Single View01/21/2022 7:26 pm CLINICAL HISTORY: Chest pain COMPARISON: none FINDINGS: The lungs appear clear of acute infiltrate. The heart is normal size IMPRESSION: No acute abnormalities displayed
--- NOTE | 2022-01-21 20:24 | ER ---
Nurse's Notes [facility] Name: Chandan Kimball Age: 21 yrs Sex: Male : 2000 Arrival Date: 01/21/2022 Time: 18:18 Bed 20 Private MD: Diagnosis: Strain of muscle and tendon of back wall of thorax Presentation: 01/21 18:25 Chief complaint: Patient states: L sided upper back and shoulder pain since , ll1 no trauma or falls. No fever. Coronavirus screen: Vaccine status: Patient reports being unvaccinated. Client denies travel out of the [place] in the last 14 days. At this time, the client does not indicate any symptoms associated with coronavirus-19. Ebola Screen: Patient denies travel to an Ebola-affected area in the 21 days before illness onset. Acute neurological deficit: none identified. Initial Sepsis Screen: Does the patient meet any 2 criteria? No. Patient's initial sepsis screen is negative. Does the patient have a suspected source of infection? No. Patient's initial sepsis screen is negative. Risk Assessment: Do you want to hurt yourself or someone else? Patient reports no desire to harm self or others. Onset of symptoms was January 19, 2022. 18:25 Method Of Arrival: Ambulatory ll1 18:25 Acuity: TESS 4 ll1 Triage Assessment: 18:27 General: Appears uncomfortable, Behavior is calm, cooperative, appropriate for age. ll1 Pain: Complains of pain in L upper back Quality of pain is described as aching, Aggravated by increased activity, repositioning. Musculoskeletal: Reports pain in L upper back/L shoulder. Historical: - Allergies: 18:26 Hydroxyzine; ll1 - PMHx: 18:26 ADD/ADHD; PTSD-self dx; ll1 - PSHx: 18:26 None; ll1 - Immunization history:: Client reports having NOT received the Covid vaccine. - Social history:: Smoking status: Reported history of juuling and/or vaping. Screenin:47 Abuse screen: Denies threats or abuse. Nutritional screening: No deficits noted. ag7 Tuberculosis screening: No symptoms or risk factors identified. Fall Risk No fall in past 12 months (0 pts). No secondary diagnosis (0 pts). IV access (20 points). Ambulatory Aid- None/Bed Rest/Nurse Assist (0 pts). Gait- Normal/Bed Rest/Wheelchair (0 pts) Mental Status- Oriented to own ability (0 pts). Total Wu Fall Scale indicates No Risk (0-24 pts). Assessment: 19:46 General: Appears in no apparent distress. Behavior is calm, cooperative, appropriate ag7 for age. Pain: Complains of pain in back of right arm, posterior chest and left arm Pain does not radiate. Pain currently is 7 out of 10 on a pain scale. Quality of pain is described as aching, Pain began suddenly, Is intermittent, Alleviated by nothing. Neuro: Level of Consciousness is awake, alert, obeys commands, Oriented to Appropriate for age. Cardiovascular: Patient's skin is warm and dry. Respiratory: Airway is patent Trachea midline Respiratory effort is even, unlabored, Respiratory pattern is regular, symmetrical. Musculoskeletal: Reports pain in back of right arm, posterior chest and left arm. Vital Signs: 18:25 BP 150 / 113; Pulse 90; Resp 18; Temp 98.0; Pulse Ox 100% ; Weight 113.4 kg; Height 5 ll1 ft. 9 in. (175.26 cm); Pain 10/10; 19:45 BP 148 / 82; Pulse 87; Resp 16 S; Pulse Ox 100% ; Pain 7/10; ag7 18:25 Body Mass Index 36.92 (113.40 kg, 175.26 cm) ll1 ED Course: 18:18 Patient arrived in ED. [id number] 18:20 Santiago Reynoso PA is PHCP. [facility] 18:20 Pavel Dexter MD is Attending Physician. m 18:25 Arm band placed on Patient placed in an exam room, on a stretcher. ll1 18:26 Triage completed. ll1 18:47 CMP Sent. mb7 18:47 D-Dimer Sent. mb7 18:47 CBC with Diff Sent. mb7 18:47 Inserted saline lock: 20 gauge in left forearm, using aseptic technique. Blood mb7 collected. 19:28 Chest Single View XRAY In Process Unspecified. EDMS 19:45 Amy Mckeon, RN is Primary Nurse. ag7 19:48 Patient has correct armband on for positive identification. Bed in low position. Call ag7 light in reach. Side rails up X 1. 19:48 No provider procedures requiring assistance completed. ag7 20:35 IV discontinued, intact, bleeding controlled, No redness/swelling at site. Pressure ag7 dressing applied. Administered Medications: 18:44 Drug: Ketorolac 30 mg Route: IVP; Site: left antecubital; ww 18:49 Drug: Valium (diazepam) 5 mg Route: IVP; Site: left antecubital; ww Medication: 19:48 VIS not applicable for this client. ag7 Outcome: 20:23 Discharge ordered by . quinton 20:35 Discharged to home ambulatory, with family. ag7 20:35 Condition: stable 20:35 Discharge instructions given to patient, Instructed on discharge instructions, follow up and referral plans. medication usage, Demonstrated understanding of instructions, follow-up care, medications, Prescriptions given X 2. 20:36 Patient left the ED. ag7 Signatures: Dispatcher [employer] EDMS Santiago Reynoso PA PA jmm Lewis, Lynsay, QIAN RN ll1 Linn Anderson Nelida Arnold mb7 Yazmin Mariano, RN RN ww Amy Mckeon RN RN ag7
--- NOTE | 2022-01-21 20:24 | EDPHYS ---
Physician Documentation [facility] Name: Chandan Kimball Age: 21 yrs Sex: Male : 2000 Arrival Date: 01/21/2022 Time: 18:18 Bed 20 Private MD: ED Physician Pavel Dexter HPI: 01/21 18:22 This 21 yrs old Male presents to ER via Ambulatory with complaints of Shoulder jmm Pain, Neck and Upper Back Pain. 18:22 The patient or guardian complains of pain. Onset: The symptoms/episode began/occurred jmm gradually, 3 day(s) ago. Modifying factors: the symptoms are alleviated by nothing. The symptoms are aggravated by movement. This is a 21-year-old male with history of PTSD, ADHD the presents emerged from with complaints of left upper back pain. Patient denies any known injury. Denies chest pain but states having some shortness of breath. Denies fever or chills.. Historical: - Allergies: 18:26 Hydroxyzine; ll1 - PMHx: 18:26 ADD/ADHD; PTSD-self dx; ll1 - PSHx: 18:26 None; ll1 - Immunization history:: Client reports having NOT received the Covid vaccine. - Social history:: Smoking status: Reported history of juuling and/or vaping. ROS: 18:22 Constitutional: Negative for fever, chills, and weight loss, Cardiovascular: Negative jmm for chest pain, palpitations, and edema, Respiratory: Negative for shortness of breath, cough, wheezing, and pleuritic chest pain. 18:22 Back: Positive for pain with movement. 18:22 All other systems are negative. Exam: 18:22 Constitutional: This is a well developed, well nourished patient who is awake, alert, jmm and in no acute distress. Head/Face: atraumatic. Eyes: EOMI, no conjunctival erythema appreciated ENT: Moist Mucus Membranes Neck: Trachea midline, Supple Chest/axilla: Normal chest wall appearance and motion. Cardiovascular: Regular rate and rhythm. No edema appreciated Respiratory: Normal respirations, no respiratory distress appreciated Abdomen/GI: Non distended, soft 18:22 MS/ Extremity: Moves all extremities, no obvious deformities appreciated, no edema noted to the lower extremities Neuro: Awake and alert Psych: Behavior is normal, Mood is normal, Patient is cooperative and pleasant 18:22 Back: pain, that is moderate, of the left scapular area and left subscapular area, muscle spasm, is appreciated in the left scapular area and left subscapular area. Vital Signs: 18:25 BP 150 / 113; Pulse 90; Resp 18; Temp 98.0; Pulse Ox 100% ; Weight 113.4 kg; Height 5 ll1 ft. 9 in. (175.26 cm); Pain 10/10; 19:45 BP 148 / 82; Pulse 87; Resp 16 S; Pulse Ox 100% ; Pain 7/10; ag7 18:25 Body Mass Index 36.92 (113.40 kg, 175.26 cm) ll1 MDM: 18:22 Patient medically screened. aj 20:22 Data reviewed: vital signs, nurses notes. Counseling: I had a detailed discussion with quinton the patient and/or guardian regarding: the historical points, exam findings, and any diagnostic results supporting the discharge/admit diagnosis, lab results, radiology results, the need for outpatient follow up, to return to the emergency department if symptoms worsen or persist or if there are any questions or concerns that arise at home. ED course: Pain is relieved in the ED. I do not currently suspect dissection, PE, pneumonia. Patient advised follow with PCP and otherwise given strict return precautions. Patient understood and agrees plan of care.. 01/21 18:31 Order name: CBC with Diff; Complete Time: 19:[address] [facility] 01/21 18:31 Order name: CMP; Complete Time: 19:[address] [facility] 01/21 18:31 Order name: D-Dimer; Complete Time: 19:[address] [facility] 01/21 18:32 Order name: Chest Single View XRAY; Complete Time: 20:[address] [facility] 01/21 18:31 Order name: Saline Lock; Complete Time: 18:[address] [facility] Administered Medications: 18:44 Drug: Ketorolac 30 mg Route: IVP; Site: left antecubital; ww 18:49 Drug: Valium (diazepam) 5 mg Route: IVP; Site: left antecubital; ww Disposition Summary: 01/21/22 20:23 Discharge Ordered Location: Home [facility] Condition: Stable [facility] Diagnosis - Strain of muscle and tendon of back wall of thorax [facility] Followup: [facility] - With: Private Physician - When: 2 - 3 days - Reason: Recheck today's complaints, Continuance of care, Re-evaluation by your physician Discharge Instructions: - Discharge Summary Sheet jmm - Thoracic Strain [place] Forms: - Medication Reconciliation Form jmm - Work release form quinton - Thank You Letter quinton - Antibiotic Education quinton - Prescription Opioid Use qu[place] Prescriptions: - Diclofenac Sodium 75 mg Oral Tablet Sustained Release - take 1 tablet by ORAL route 2 times per day; 30 tablet; Refills: 0, Product [facility] Selection Permitted - orphenadrine citrate 100 mg Oral Tablet Sustained Release - take 1 tablet by ORAL route 2 times per day As needed; 20 tablet; Refills: 0, [facility] Product Selection Permitted Signatures: Dispatcher [employer] Pavel Burns MD MD cha Mickail, Joel, PA PA jmm Lewis, Lynsay, RN RN ll1 Yazmin Mariano RN RN ww
[2022-01-21 20:42] VITALS: TEMP 98; O2SAT 100
[2022-01-21 20:44] VITALS: BP 148/82
== END 2022-01-21 20:36 | disposition home or self-care (01) ==
LOC: ER 18:15
DX: S29.012A Strain of muscle and tendon of back wall of thorax, initial encounter (principal); Z88.8 Allergy status to other drugs, medicaments and biological substances
CPT/HCPCS: 36415; 71045; 80053; 85025; 85379; 96374; 96375; 99284; J3360

== ENCOUNTER 2022-12-18 12:01 | Emergency (ER) | payer SELFPAY ==
--- OUTSIDE RECORDS SUMMARY | 2022-12-18 12:05 | XMS REPORT | Continuity of Care Document ---
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 CenterKijahbmOCSIVALIQI1025-33-06 06:44:00 Test Item Value Reference Range Interpretation Comments RDW (test code = RDW) 14.2 11.5-14.5 [facility] CenterHbipwbdHJNBYDASWH1277-53-58 06:44:00 Test Item Value Reference Range Interpretation Comments Platelet (test code = Platelet) 299 133-450 [facility] CenterOnjpnzvCHROGIRPFO2605-06-92 06:44:00 Test Item Value Reference Range Interpretation Comments MPV (test code = MPV) 9.3 7.4-10.4 [facility] CenterIgjlscyEIHNWVOXBR5434-54-47 06:44:00 Test Item Value Reference Range Interpretation Comments Hct (test code = Hct) 37.8 42.0-54.0 [facility] CenterUgufhvxVDRUDBANWO9314-84-94 06:44:00 Test Item Value Reference Range Interpretation Comments MCV (test code = MCV) 84.3 80.0-94.0 [facility] CenterArvnwrxGOYFJUDHYR1464-07-18 06:44:00 Test Item Value Reference Range Interpretation Comments WBC (test code = WBC) 20.0 3.7-10.4 [facility]BgtyclwRUYIDHJEPK1598-04-63 06:44:00 Test Item Value Reference Range Interpretation Comments RBC (test code = RBC) 4.48 4.70-6.10 [facility] HospitalDgudkxgOJJAQOGJPL2684-46-07 06:44:00 Test Item Value Reference Range Interpretation Comments Hgb (test code = Hgb) 12.9 14.0-18.0 [facility] HospitalWqksozfQPTHVJQBI7230-66-29 06:44:00 Test Item Value Reference Range Interpretation Comments Myoglobin (test code = Myoglobin) 906 25-72 [facility] HospitalCHEM CZVDT2678-97-28 02:41:00 Test Item Value Reference Range Interpretation Comments Lactic Acid Lvl (test code = Lactic 1.7 0.5-2.2 Acid Lvl) [facility] HospitalRnxasraDEUSPUJTUYAW3362-38-74 02:41:00 Test Item Value Reference Range Interpretation Comments AGAP (test code = AGAP) 14.5 10.0-20.0 [facility] HospitalNyrgzblVZWRULJKCIYW6953-08-62 02:41:00 Test Item Value Reference Range Interpretation Comments Chloride Lvl (test code = Chloride Lvl) 106 95-109 [facility] HospitalDlhwhqqOIQLZQAINEGJ6913-18-37 02:41:00 Test Item Value Reference Range Interpretation Comments CO2 (test code = CO2) 23 24-32 [facility] HospitalOpjbvhxTIRFTYULJSDO5081-81-68 02:41:00 Test Item Value Reference Range Interpretation Comments Calcium Lvl (test code = Calcium Lvl) 8.3 8.5-10.5 [facility] HospitalNhicvxtCZDXCTHIQMYN8687-02-30 02:41:00 Test Item Value Reference Range Interpretation Comments eGFR (test code = eGFR) 51 [facility] HospitalFkerrqdKIFTXFFTLKEG6851-54-91 02:41:00 Test Item Value Reference Range Interpretation Comments Potassium Lvl (test code = Potassium 3.5 3.5-5.1 Lvl) [facility] HospitalVcincgdELQFWMMJKOHQ6127-51-31 02:41:00 Test Item Value Reference Range Interpretation Comments Sodium Lvl (test code = Sodium Lvl) 140 135-145 [facility] HospitalGhuqfupFDSGADPOMGLS6229-18-97 02:41:00 Test Item Value Reference Range Interpretation Comments Glucose Lvl (test code = Glucose Lvl) 180 70-99 [facility] HospitalQkmbsmsVHFZSWWTXMVZ7532-08-61 02:41:00 Test Item Value Reference Range Interpretation Comments BUN (test code = BUN) 14 7-22 [facility]TjpldhbNTIUGGRNFCXC3991-22-06 02:41:00 Test Item Value Reference Range Interpretation Comments Creatinine Lvl (test code = Creatinine 1.07 0.50-1.40 Lvl) [facility] CenterQrawtkwRDUHIUYUER5930-11-26 02:41:00 Test Item Value Reference Range Interpretation Comments MPV (test code = MPV) 9.2 7.4-10.4 [facility] CenterIadctxkCUUKNGQUMY5506-59-27 02:41:00 Test Item Value Reference Range Interpretation Comments Platelet (test code = Platelet) 302 133-450 [facility] CenterZbhbfkdZBJNSMEGAW1627-23-21 02:41:00 Test Item Value Reference Range Interpretation Comments MCH (test code = MCH) 28.3 pg 27.0-31.0 [facility] CenterMmcqqtdNRRFKXQYWL6605-61-47 02:41:00 Test Item Value Reference Range Interpretation Comments MCV (test code = MCV) 83.6 80.0-94.0 [facility] CenterYmfsdpdGVFVUXNBGE9794-59-09 02:41:00 Test Item Value Reference Range Interpretation Comments RDW (test code = RDW) 14.1 11.5-14.5 [facility] CenterOspofsvDTODDEWTCY4886-19-82 02:41:00 Test Item Value Reference Range Interpretation Comments MCHC (test code = MCHC) 33.8 32.0-36.0 [facility] CenterToxjzjbRTKMBOHQCT3419-87-98 02:41:00 Test Item Value Reference Range Interpretation Comments Hct (test code = Hct) 38.7 42.0-54.0 [facility] CenterBvpumyrJJPLIPBWWG6549-19-08 02:41:00 Test Item Value Reference Range Interpretation Comments Hgb (test code = Hgb) 13.1 14.0-18.0 [facility] CenterKoxnydhIPFENUJZWA4852-67-92 02:41:00 Test Item Value Reference Range Interpretation Comments RBC (test code = RBC) 4.63 4.70-6.10 [facility] CenterZarpsfcBIWCRVJLQN9217-00-52 02:41:00 Test Item Value Reference Range Interpretation Comments WBC (test code = WBC) 30.1 3.7-10.4 [facility] CenterOifhwdfADOOUXDKDT6599-08-22 02:41:00 Test Item Value Reference Range Interpretation Comments Estimated % Lysis Rapid 1.2 See_Comment [Au tomated message] The (test code = Estimated syste m which generated % Lysis Rapid) this result t ransmitted reference range : <=7.5. The reference r bright was not used to int erpret this result as normal/abnormal . [facility] CenterUvkqbcsVRKVKNFWQM1160-89-05 02:41:00 Test Item Value Reference Range Interpretation Comments G-value Rapid (test code = G-value 13.7 5.0-11.6 Rapid) [facility] CenterVhuxvmjNOLGQKWMSE3726-41-44 02:41:00 Test Item Value Reference Range Interpretation Comments Max Amplitude Rapid (test code = Max 73 mm 52-71 Amplitude Rapid) [facility] CenterJacinnpOLIREXMXAG8215-87-47 02:41:00 Test Item Value Reference Range Interpretation Comments Split Point Rapid (test code = Split 0.5 min Point Rapid) [facility] CenterUiftmowMKZTNEGSQS9539-80-59 02:41:00 Test Item Value Reference Range Interpretation Comments ACT (TEG) Rapid (test code = ACT (TEG) 105 s 86-118 Rapid) [facility] CenterGktbnsnFHJCZOFEYC7004-92-69 02:41:00 Test Item Value Reference Range Interpretation Comments K-time Rapid (test code = K-time 0.9 min 0.6-2.3 Rapid) [facility] CenterGxebntnDXIENNINNY2177-39-92 02:41:00 Test Item Value Reference Range Interpretation Comments Angle Rapid (test code = Angle 78 degrees 64-80 Rapid) [facility] CenterWhultxiQWUBTYVCBK6546-60-18 02:41:00 Test Item Value Reference Range Interpretation Comments R-time Rapid (test code = R-time 0.6 min 0.4-0.7 Rapid) [facility] CenterStovfhzGTZHDFXATZ5620-99-22 02:41:00 Test Item Value Reference Range Interpretation Comments Plt Morph (test code = Normal (08/06/17 8:41 Plt Morph) PM) [facility] CenterOifklroTUJTWBYSBD4898-41-53 02:41:00 Test Item Value Reference Range Interpretation Comments RBC Morph (test code = Normal (08/06/17 8:41 RBC Morph) PM) [facility] CenterKpjnzhjYBWZXXXMTQ3942-13-65 02:41:00 Test Item Value Reference Range Interpretation Comments Monocytes (test code = Monocytes) 0.0 2.0-12.0 [facility] CenterOfucxnfVKVANFWJDU0230-88-46 02:41:00 Test Item Value Reference Range Interpretation Comments Atypical Lymphs (test code = Atypical 0.0 Lymphs) [facility] CenterTxoymilAGBICYLQNY7033-78-22 02:41:00 Test Item Value Reference Range Interpretation Comments Bands (test code = 10.0 See_Comment [Automat ed message] The Bands) system which ge nerated this result transmit alek reference range : <=11.0. The reference r bright was not used to interpr et this result as sumi l/abnormal. [facility] CenterUnsqjsxCQCAQCFHVA4854-61-19 02:41:00 Test Item Value Reference Range Interpretation Comments Lymphocytes (test code = Lymphocytes) 8.0 20.0-40.0 [facility] CenterOxbguicRALFSUWXJT8251-75-24 02:41:00 Test Item Value Reference Range Interpretation Comments Monocytes # (test code 0.0 See_Comment [Aut omated message] The = Monocytes #) system which generated this result tra nsmitted reference range : <=0.8. The reference r bright was not used to int erpret this result as normal/abnormal . [facility] CenterZhfwdhsTWROYHSYZS3348-66-70 02:41:00 Test Item Value Reference Range Interpretation Comments Segs (test code = Segs) 82.0 45.0-75.0 [facility] CenterCbnsuiyNKKAKNFXJM2126-32-92 02:41:00 Test Item Value Reference Range Interpretation Comments Segs-Bands # (test code = Segs-Bands #) 27.7 1.5-8.1 [facility] CenterMhpybrdYLDRSWHHSR9785-59-70 02:41:00 Test Item Value Reference Range Interpretation Comments Lymphocytes # (test code = Lymphocytes 2.4 1.0-5.5 #) [facility] HospitalHmvhbdnPFHSRIXTHH4710-72-60 02:41:00 Test Item Value Reference Range Interpretation Comments Etoh (%) (test code = Etoh (%)) no gt [facility]neZowdrqhCZUGROTLSY0594-20-72 02:41:00 Test Item Value Reference Range Interpretation Comments Ethanol Lvl (test code = Ethanol Lvl) no gt [facility] [employer] JQJFWMF5940-18-56 02:27:00 Test Item Value Reference Range Interpretation Comments Antibody Scrn (test Negative (08/06/17 code = Antibody Scrn) 8:27 PM) [facility] [employer] JPHDYPB5499-87-00 02:27:00 Test Item Value Reference Range Interpretation Comments ABO/Rh (test code = ABO/Rh) [facility]
[2022-12-18 12:36] LABS: Absolute Lymphocytes (CBC) 1.5 K/uL (0.7-4.9); Hematocrit 38.5 % (39.6-49.0); Lymphocytes % 15.8 % (15.3-44.8); MCV 81.3 fL (80-100); MPV 8.9 fL (7.6-11.3); RBC Red Blood Cell Count 4.74 M/uL (4.33-5.43)
[2022-12-18 13:01] LABS: Bilirubin Direct 0.2 mg/dL (0-0.2); Bilirubin Total 0.6 mg/dL (0.2-1.0); Magnesium 2.2 mg/dL (1.6-2.4); Potassium 3.4 mEq/L (3.5-5.1); Protein, Total 7.9 g/dL (6.4-8.2); Troponin High Sensitivity 3.3 pg/mL (<58.9)
[2022-12-18 13:06] LABS: Protime INR 1.01
--- NOTE | 2022-12-18 13:13 | RAD REPORT ---
EXAM DESCRIPTION: RADChest Single View12/18/2022 1:03 pm CLINICAL HISTORY: DYSPNEA COMPARISON: Chest Single View dated 01/21/2022 TECHNIQUE: Portable AP view of the chest. FINDINGS: The lungs are clear. No pneumothorax or effusion. The cardiomediastinal contours are unrem arkable. IMPRESSION: No acute cardiopulmonary process.
[2022-12-18] MEDS ORDERED: NA CHLORIDE 0.9% 1,000 ML ONE (13:24)
[2022-12-18] MEDS ORDERED: IBUPROFEN 200 MG TAB PO ONE (14:49)
[2022-12-18 15:02] LABS: Specific Gravity 1.023 (1.005-1.030); Urine Bacteria None Seen /HPF (<20); Urine Bilirubin NEGATIVE (Negative); Urine Blood Negative (Negative); Urine Clarity Clear (Clear); Urine Color Light-Yellow (Yellow); Urine Glucose NEGATIVE (Negative); Urine Mucus 2+ /HPF (None Seen); Urine Protein TRACE (Negative); Urine RBC <5 /HPF (None Seen); Urine Urobilinogen Normal (Normal); Urine pH 5.5 (5.0-7.0)
--- NOTE | 2022-12-18 15:12 | EDPHYS ---
Physician Documentation [facility] Name: Chandan Kimball Age: 22 yrs Sex: Male : 2000 Arrival Date: 12/18/2022 Time: 12:01 Bed 2 Private MD: ED Physician Adonis Murray HPI: 12/18 12:37 This 22 yrs old Male presents to ER via Ambulatory with complaints of kb Dizziness. 12:37 The patient presents with feeling faint. Onset: The symptoms/episode began/occurred 1 kb week(s) ago. Context: occurred at home, occurred while the patient was nausea. Modifying factors: The symptoms are alleviated by nothing, the symptoms are aggravated by nothing. Associated signs and symptoms: Pertinent positives: nausea. Severity of symptoms: At their worst the symptoms were mild moderate in the emergency department the symptoms are unchanged. Patient's baseline: Neuro: alert and fully oriented, Motor: no deficits, Ambulation: walks without assistance, Speech: normal. The patient has not experienced similar symptoms in the past. The patient has not recently seen a physician. Historical: - Allergies: 12:08 Hydroxyzine; ll1 - PMHx: 12:08 ADD/ADHD; PTSD-self dx; ll1 - Immunization history:: Client reports receiving the 2nd dose of the Covid vaccine. - Social history:: Smoking status: Reported history of juuling and/or vaping. ROS: 12:36 Constitutional: Negative for fever, chills, and weight loss. kb 12:36 Abdomen/GI: Positive for nausea, Negative for abdominal pain, vomiting, diarrhea. 12:36 Neuro: Positive for dizziness, lightheadedness. 12:36 All other systems are negative. Exam: 12:23 Constitutional: This is a well developed, well nourished patient who is awake, alert, kb and in no acute distress. Head/Face: Normocephalic, atraumatic. ENT: Moist Mucous membranes Cardiovascular: Regular rate and rhythm with a normal S1 and S2. No gallops, murmurs, or rubs. No pulse deficits. Respiratory: Respirations even and unlabored. No increased work of breathing. Talking in full sentences Abdomen/GI: Soft, non-tender. No distention Skin: Warm, dry with normal turgor. Normal color. MS/ Extremity: Pulses equal, no cyanosis. Neurovascular intact. Full, normal range of motion. Neuro: Awake and alert, GCS 15, oriented to person, place, time, and situation. Moves all extremities. Normal gait. 12:23 ECG was reviewed by the Attending Physician. Vital Signs: 12:07 BP 122 / 90; Pulse 87; Resp 16; Temp 98.3; Pulse Ox 100% ; Weight 127.01 kg; Height 5 ll1 ft. 9 in. ; 12:32 BP 129 / 76 RA Supine; Pulse 70; cm9 12:36 BP 132 / 87 RA Sitting; Pulse 79; cm9 12:39 BP 142 / 87 RA Standing; Pulse 85; cm9 13:49 BP 128 / 75; Pulse 65; Resp 18; Pulse Ox 100% on R/A; ld1 14:34 BP 111 / 67; ld1 15:18 BP 126 / 76; Resp 18; Pulse Ox 99% on R/A; Pain 0/10; cm9 15:18 Pulse 78; cm9 12:07 Body Mass Index 41.35 (127.01 kg, 175.26 cm) ll1 15:18 Pain Scale: Adult cm9 MDM: 12:10 Patient medically screened. kb 12:36 Data reviewed: vital signs, nurses notes. kb 12:38 Differential diagnosis: cardiac arrhythmia, generalized weakness, hypovolemia, kb idiopathic dizziness, near-syncope. 15:10 Counseling: I had a detailed discussion with the patient and/or guardian regarding: the kb historical points, exam findings, and any diagnostic results supporting the discharge/admit diagnosis, lab results, radiology results, the need for outpatient follow up, a family practitioner, to return to the emergency department if symptoms worsen or persist or if there are any questions or concerns that arise at home. 12/18 12:10 Order name: Basic Metabolic Panel; Complete Time: 13:07 kb 12/18 12:10 Order name: CBC with Diff; Complete Time: 12:48 kb 12/18 12:10 Order name: Hepatic Function; Complete Time: 13:07 kb 12/18 12:10 Order name: Magnesium; Complete Time: 13:07 kb 12/18 12:10 Order name: Protime (+inr); Complete Time: 13:07 kb 12/18 12:10 Order name: Ptt, Activated; Complete Time: 13:07 kb 12/18 12:10 Order name: Troponin High Sensitivity; Complete Time: 13:07 kb 12/18 12:10 Order name: Urinalysis w/ reflexes; Complete Time: 15:03 kb 12/18 12:25 Order name: D-Dimer; Complete Time: 12:51 kb 12/18 12:23 Order name: Chest Single View XRAY; Complete Time: 13:15 kb 12/18 12:10 Order name: EKG; Complete Time: 12:11 kb 12/18 12:10 Order name: Cardiac monitoring; Complete Time: 12:30 kb 12/18 12:10 Order name: EKG - Nurse/Tech; Complete Time: 12:24 kb 12/18 12:10 Order name: IV Saline Lock; Complete Time: 12:30 kb 12/18 12:10 Order name: Labs collected and sent; Complete Time: 12:30 kb 12/18 12:10 Order name: NPO; Complete Time: 12:24 kb 12/18 12:10 Order name: O2 Per Protocol; Complete Time: 12:24 kb 12/18 12:10 Order name: O2 Sat Monitoring; Complete Time: 12:24 kb 12/18 12:10 Order name: Orthostatics; Complete Time: 12:44 kb EC:23 Rate is 75 beats/min. Rhythm is regular. QRS [place] is Normal. [place] interval is normal at kb 140 msec. QRS interval is normal at 82 msec. QT interval is normal at 397 msec. Administered Medications: 13:20 Drug: NS 0.9% IV 1000 ml Route: IV; Rate: 1000 ml; Site: left antecubital; nj1 14:44 Drug: Ibuprofen PO 600 mg Route: PO; nj1 Disposition: 16:50 Co-signature as Attending Physician, Adonis Murray MD I reviewed the patient's care rn provided by the Advanced Practice Provider and agree with the diagnosis and treatment plan. Disposition Summary: 12/18/22 15:11 Discharge Ordered Location: Home kb Condition: Stable kb Diagnosis - Syncope Near kb Followup: kb - With: Emergency Department - When: As needed - Reason: Worsening of condition Followup: kb - With: Private Physician - When: 2 - 3 days - Reason: Recheck today's complaints, Continuance of care, Re-evaluation by your physician Discharge Instructions: - Discharge Summary Sheet kb - Near-Syncope, Nnei-sd-Lzwu kb Forms: - Medication Reconciliation Form kb - Thank You Letter kb - Antibiotic Education kb - Prescription Opioid Use kb Signatures: Dispatcher [employer] EDMinal Hector, OPERATING ROOM TECHNICIAN-C OPERATING ROOM TECHNICIAN-Guillermob Adonis Murray MD MD rn Lewis, Lynsay RN RN ll1 Farideh Lynch RN RN nj1
--- NOTE | 2022-12-18 15:12 | ER ---
Nurse's Notes [facility] Name: Chandan Kimball Age: 22 yrs Sex: Male : 2000 Arrival Date: 12/18/2022 Time: 12:01 Bed 2 Private MD: Diagnosis: Syncope Near Presentation: 12/18 12:07 Chief complaint: Patient states: Dizziness, N/V at night for 1 week. Near syncope event ll1 at work today, so they told him to get checked out. Coronavirus screen: Vaccine status: Patient reports being unvaccinated. Client denies travel out of the [place] in the last 14 days. At this time, the client does not indicate any symptoms associated with coronavirus-19. Ebola Screen: Patient denies travel to an Ebola-affected area in the 21 days before illness onset. Initial Sepsis Screen: Does the patient meet any 2 criteria? No. Patient's initial sepsis screen is negative. Does the patient have a suspected source of infection? Yes: Acute abdominal pain. Risk Assessment: Do you want to hurt yourself or someone else? Patient reports no desire to harm self or others. Onset of symptoms was December 11, 2022. 12:07 Method Of Arrival: Ambulatory ll1 12:07 Acuity: TESS 3 ll1 Triage Assessment: 12:08 General: Appears uncomfortable, Behavior is calm, cooperative, appropriate for age. ll1 Neuro: Reports dizziness, headache. GI: Reports nausea, vomiting. Historical: - Allergies: 12:08 Hydroxyzine; ll1 - PMHx: 12:08 ADD/ADHD; PTSD-self dx; ll1 - Immunization history:: Client reports receiving the 2nd dose of the Covid vaccine. - Social history:: Smoking status: Reported history of juuling and/or vaping. Screenin:44 [facility] ED Fall Risk Assessment (Adult) History of falling in the last 3 months, cm9 including since admission No falls in past 3 months (0 pts) Confusion or Disorientation No (0 pts) Intoxicated or Sedated No (0 pts) Impaired Gait No (0 pts) Mobility Assist Device Used No (0 pt) Altered Elimination Yes (1 pt) Score/Fall Risk Level 0 - 2 = Low Risk Oriented to surroundings, Maintained a safe environment, Educated pt \\T\\ family on fall prevention, incl call for assistance when getting out of bed, Assessed \\T\\ reinforced patient's understanding of fall precautions, Hourly rounding (assess needs \\T\\ fall precautionary measures) done. Abuse screen: Denies threats or abuse. Nutritional screening: No deficits noted. Tuberculosis screening: No symptoms or risk factors identified. Assessment: 12:44 General: Appears in no apparent distress. Behavior is calm, cooperative, appropriate cm9 for age. Pain: Denies pain. Neuro: Level of Consciousness is awake, alert, Oriented to person, place, time, situation. Neuro: Reports dizziness. Cardiovascular: Capillary refill < 3 seconds Patient's skin is warm and dry. Respiratory: Airway is patent Respiratory effort is even, unlabored. GI: Abdomen is round non-distended, Reports lower abdominal pain, upper abdominal pain, cramping, diarrhea, vomiting. : Reports urinary frequency. 14:38 Reassessment: Patient appears in no apparent distress at this time. Patient and/or nj1 family updated on plan of care and expected duration. Pain level reassessed. Patient is alert, oriented x 3, equal unlabored respirations, skin warm/dry/pink. 14:38 Pain: Complains of pain in Head Pain currently is 8 out of 10 on a pain scale. Quality nj1 of pain is described as aching. Vital Signs: 12:07 BP 122 / 90; Pulse 87; Resp 16; Temp 98.3; Pulse Ox 100% ; Weight 127.01 kg; Height 5 ll1 ft. 9 in. ; 12:32 BP 129 / 76 RA Supine; Pulse 70; cm9 12:36 BP 132 / 87 RA Sitting; Pulse 79; cm9 12:39 BP 142 / 87 RA Standing; Pulse 85; cm9 13:49 BP 128 / 75; Pulse 65; Resp 18; Pulse Ox 100% on R/A; ld1 14:34 BP 111 / 67; ld1 15:18 BP 126 / 76; Resp 18; Pulse Ox 99% on R/A; Pain 0/10; cm9 15:18 Pulse 78; cm9 12:07 Body Mass Index 41.35 (127.01 kg, 175.26 cm) ll1 15:18 Pain Scale: Adult cm9 ED Course: 12:04 Patient arrived in ED. mr 12:05 Minal Major FNP-C [facility]. kb 12:05 Adonis Murray MD is Attending Physician. kb 12:08 Triage completed. ll1 12:28 Rhonda Parks, RN is Primary Nurse. cm9 12:29 Basic Metabolic Panel Sent. cm9 12:29 Hepatic Function Sent. cm9 12:29 Magnesium Sent. cm9 12:29 CBC with Diff Sent. cm9 12:29 Protime (+inr) Sent. cm9 12:29 Ptt, Activated Sent. cm9 12:29 Troponin High Sensitivity Sent. cm9 12:30 D-Dimer Sent. cm9 12:36 EKG done, by ED staff, reviewed by Minal VALENZUELA. em1 12:44 No provider procedures requiring assistance completed. Inserted saline lock: 20 gauge cm9 in left antecubital area, using aseptic technique. Blood collected. 12:44 Patient has correct armband on for positive identification. Allergy band placed. Bed in cm9 low position. Call light in reach. Side rails up X 1. 13:05 Chest Single View XRAY In Process Unspecified. EDMS 14:24 Urinalysis w/ reflexes Sent. cm9 15:18 IV discontinued, intact, bleeding controlled, No redness/swelling at site. Pressure cm9 dressing applied. Administered Medications: 13:20 Drug: NS 0.9% IV 1000 ml Route: IV; Rate: 1000 ml; Site: left antecubital; nj1 14:44 Drug: Ibuprofen PO 600 mg Route: PO; nj1 Medication: 12:44 VIS not applicable for this client. cm9 Outcome: 15:11 Discharge ordered by MD. kb 15:18 Discharged to home cm9 15:18 Condition: good 15:18 Discharge instructions given to patient. 15:51 Instructed on discharge instructions, follow up and referral plans. pt. refused to cm9 complete 1L of fluids, 500mL of NS in at this time; pt statingf, "ready to leave" and have line d/c'd. 15:53 Patient left the ED. cm9 Signatures: Dispatcher [employer] EDMS Minal Major FNP-C FNP-Ckyanely Nelida Cloud Eric em1 Nirmala Araujo, QIAN RN ll1 Jessi Kerns RN RN ld1 Iona Waters 6 Farideh Lynch RN RN nj1 Rhonda Parks, RN RN cm9 Corrections: (The following items were deleted from the chart) 12:36 12:35 EKG done, by ED staff, bc6 em1 12:36 12:36 EKG done, em1 em1
[2022-12-18 16:31] VITALS: TEMP 98.3
[2022-12-18 16:38] VITALS: BP 126/76; O2SAT 99
--- NOTE | 2022-12-19 08:12 | EKG ---
Test Date: 2022-12-18 Test Time: 12:19:46 Business Law Teacher: BARBER MEASUREMENT RESULTS: Intervals: Rate: 75 [place]: 140 QRSD: 82 QT: 356 QTc: 397 [place]: P: 44 [place]: 140 QRS: 19 T: 27 INTERPRETIVE STATEMENTS: Normal sinus rhythm with sinus arrhythmia Minimal voltage criteria for LVH, may be normal variant Borderline ECG Compared to ECG 06/14/2020 02:16:01 Sinus tachycardia no longer present Electronically Signed On 12-19-22 08:10:58 CDT by Yvon Trujillo
== END 2022-12-18 15:53 | disposition home or self-care (01) ==
LOC: ER 12:01
DX: R55 Syncope and collapse (principal); Z88.8 Allergy status to other drugs, medicaments and biological substances
CPT/HCPCS: 36415; 71045; 80048; 80076; 81001; 83735; 84484; 85025; 85379; 85610; 85730; 93005; 99284; J7030

== ENCOUNTER 2023-02-27 06:59 | Emergency (ER) | payer SELFPAY ==
--- OUTSIDE RECORDS SUMMARY | 2023-02-27 07:04 | XMS REPORT | Continuity of Care Document ---
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 Range Interpretation Comments WBC (test code = WBC) 20.0 3.7-10.4 [facility]entonIrnnuwqTFNSWXPWCK9705-11-62 06:44:00 Test Item Value Reference Range Interpretation Comments RBC (test code = RBC) 4.48 4.70-6.10 [facility]entonGywcpdyLRIZYSGJVN4493-76-88 06:44:00 Test Item Value Reference Range Interpretation Comments Hgb (test code = Hgb) 12.9 14.0-18.0 [facility] HospitalIljwyggUJVDZWOKE5445-81-35 06:44:00 Test Item Value Reference Range Interpretation Comments Myoglobin (test code = Myoglobin) 906 25-72 [facility]2017-12-19 06:44:00 Test Item Value Reference Range Interpretation Comments eGFR (test code = eGFR) 107 [facility]2017-12-19 06:44:00 Test Item Value Reference Range Interpretation Comments Calcium Lvl (test code = Calcium Lvl) 9.0 8.5-10.5 [facility]2017-12-19 06:44:00 Test Item Value Reference Range Interpretation Comments Sodium Lvl (test code = Sodium Lvl) 138 135-145 [facility]2017-12-19 06:44:00 Test Item Value Reference Range Interpretation Comments Potassium Lvl (test code = Potassium 4.1 3.5-5.1 Lvl) [facility]2017-12-19 06:44:00 Test Item Value Reference Range Interpretation Comments Chloride Lvl (test code = Chloride Lvl) 103 95-109 [facility]2017-12-19 06:44:00 Test Item Value Reference Range Interpretation Comments CO2 (test code = CO2) 25 24-32 [facility]2017-12-19 06:44:00 Test Item Value Reference Range Interpretation Comments AGAP (test code = AGAP) 14.1 10.0-20.0 [facility]2017-12-19 06:44:00 Test Item Value Reference Range Interpretation Comments Glucose Lvl (test code = Glucose Lvl) 116 70-99 [facility]2017-12-19 06:44:00 Test Item Value Reference Range Interpretation Comments BUN (test code = BUN) 12 7-22 [facility]2017-12-19 06:44:00 Test Item Value Reference Range Interpretation Comments Creatinine Lvl (test code = Creatinine 1.01 0.50-1.40 Lvl) [facility]GjfjyasORLFIDNMIE3522-79-13 06:44:00 Test Item Value Reference Range Interpretation Comments Plt Morph (test code = Normal (08/07/17 12:44 Plt Morph) AM) [facility] HospitalIhugvnxGOWVGGPAHW7313-70-26 06:44:00 Test Item Value Reference Range Interpretation Comments Lymphocytes (test code = Lymphocytes) 3.8 20.0-40.0 [facility] CenterBibpjsgSOYFOUERPT5254-84-70 06:44:00 Test Item Value Reference Range Interpretation Comments RBC Morph (test code = Normal (08/07/17 12:44 RBC Morph) AM) [facility] CenterGodygmkZNARUOBWMU3866-44-61 06:44:00 Test Item Value Reference Range Interpretation Comments Segs (test code = Segs) 91.8 45.0-75.0 [facility] CenterEdmxsbaKXRMJLGZBO9127-51-46 06:44:00 Test Item Value Reference Range Interpretation Comments Eosinophils (test code = 0.1 See_Comment [A utomated message] The Eosinophils) system which ge nerated this result tra nsmitted reference range : <=4.0. The reference r bright was not used to int erpret this result as normal/abnormal . [facility] CenterIyowpiuPHHNHMTOHY9089-33-37 06:44:00 Test Item Value Reference Range Interpretation Comments Basophils (test code = 0.2 See_Comment [Aut omated message] The Basophils) system which ge nerated this result tra nsmitted reference range : <=1.0. The reference r bright was not used to int erpret this result as normal/abnormal . [facility] CenterAfvtvytZIUJJEPGMP7790-69-48 06:44:00 Test Item Value Reference Range Interpretation Comments Lymphocytes # (test code = Lymphocytes 0.8 1.0-5.5 #) [facility] CenterKiajkidGTGTAKMPVI7972-27-73 06:44:00 Test Item Value Reference Range Interpretation Comments Segs-Bands # (test code = Segs-Bands #) 18.4 1.5-8.1 [facility] CenterKuvtkzuXEREXMHXKC9956-51-58 06:44:00 Test Item Value Reference Range Interpretation Comments Monocytes (test code = Monocytes) 4.1 2.0-12.0 [facility] CenterZxnpmexGRHXPQTXVI0079-78-29 06:44:00 Test Item Value Reference Range Interpretation Comments Monocytes # (test code 0.8 See_Comment [Aut omated message] The = Monocytes #) system which generated this result tra nsmitted reference range : <=0.8. The reference r bright was not used to int erpret this result as normal/abnormal . [facility] CenterSgpughvPXWOQMZQOA7960-14-69 06:44:00 Test Item Value Reference Range Interpretation Comments MCH (test code = MCH) 28.7 pg 27.0-31.0 [facility] HospitalHtirmpqCGZODZARIX7808-84-04 06:44:00 Test Item Value Reference Range Interpretation Comments MCHC (test code = MCHC) 34.1 32.0-36.0 [facility] HospitalQchijicKSXBMEFSFG1831-55-92 06:44:00 Test Item Value Reference Range Interpretation Comments RDW (test code = RDW) 14.2 11.5-14.5 [facility] HospitalQabxnjmYLTOVBUHFP3832-01-42 06:44:00 Test Item Value Reference Range Interpretation Comments Platelet (test code = Platelet) 299 133-450 [facility] HospitalZoigtvgIIFBRQRIXS1248-14-69 06:44:00 Test Item Value Reference Range Interpretation Comments MPV (test code = MPV) 9.3 7.4-10.4 [facility] HospitalQcdhcuqOLMSHYBVVT5157-50-90 06:44:00 Test Item Value Reference Range Interpretation Comments Hct (test code = Hct) 37.8 42.0-54.0 [facility] HospitalUuqvzjiAVFBJKLFFT6943-35-09 06:44:00 Test Item Value Reference Range Interpretation Comments MCV (test code = MCV) 84.3 80.0-94.0 [facility] HospitalFbiokrxLSKYPVWSMV0229-64-24 06:44:00 Test Item Value Reference Range Interpretation Comments WBC (test code = WBC) 20.0 3.7-10.4 [facility] HospitalIidtmqyGARMLXOPWZ6031-13-85 06:44:00 Test Item Value Reference Range Interpretation Comments RBC (test code = RBC) 4.48 4.70-6.10 [facility] HospitalJxsvrhgWMCIUBEFJA5263-92-76 06:44:00 Test Item Value Reference Range Interpretation Comments Hgb (test code = Hgb) 12.9 14.0-18.0 [facility] HospitalSpgvnrwXAWTEYMQB7852-79-05 06:44:00 Test Item Value Reference Range Interpretation Comments Myoglobin (test code = Myoglobin) 906 25-72 [facility] CIGNN5028-49-95 06:44:00 Test Item Value Reference Range Interpretation Comments eGFR (test code = eGFR) 107 [facility] ASOYF0123-92-89 06:44:00 Test Item Value Reference Range Interpretation Comments Calcium Lvl (test code = Calcium Lvl) 9.0 8.5-10.5 [facility]2017-12-19 06:44:00 Test Item Value Reference Range Interpretation Comments Sodium Lvl (test code = Sodium Lvl) 138 135-145 [facility]2017-12-19 06:44:00 Test Item Value Reference Range Interpretation Comments Potassium Lvl (test code = Potassium 4.1 3.5-5.1 Lvl) [facility]2017-12-19 06:44:00 Test Item Value Reference Range Interpretation Comments Chloride Lvl (test code = Chloride Lvl) 103 95-109 [facility]2017-12-19 06:44:00 Test Item Value Reference Range Interpretation Comments CO2 (test code = CO2) 25 24-32 [facility]2017-12-19 06:44:00 Test Item Value Reference Range Interpretation Comments AGAP (test code = AGAP) 14.1 10.0-20.0 [facility]2017-12-19 06:44:00 Test Item Value Reference Range Interpretation Comments Glucose Lvl (test code = Glucose Lvl) 116 70-99 [facility]2017-12-19 06:44:00 Test Item Value Reference Range Interpretation Comments BUN (test code = BUN) 12 7-22 [facility]2017-12-19 06:44:00 Test Item Value Reference Range Interpretation Comments Creatinine Lvl (test code = Creatinine 1.01 0.50-1.40 Lvl) [facility] CenterRfkbmaeLYNZMPOVWL1487-25-99 06:44:00 Test Item Value Reference Range Interpretation Comments Plt Morph (test code = Normal (08/07/17 12:44 Plt Morph) AM) [facility] CenterCsutrnlIDUFXWNMDV8798-12-03 06:44:00 Test Item Value Reference Range Interpretation Comments Lymphocytes (test code = Lymphocytes) 3.8 20.0-40.0 [facility] CenterFlpiqknAGIVOGRCCD0787-58-02 06:44:00 Test Item Value Reference Range Interpretation Comments RBC Morph (test code = Normal (08/07/17 12:44 RBC Morph) AM) [facility] CenterNgxbzbyELASBMAHPX3897-88-53 06:44:00 Test Item Value Reference Range Interpretation Comments Segs (test code = Segs) 91.8 45.0-75.0 [facility] CenterZzrwankGDIZTCJJMV6976-38-32 06:44:00 Test Item Value Reference Range Interpretation Comments Eosinophils (test code = 0.1 See_Comment [A utomated message] The Eosinophils) system which ge nerated this result tra nsmitted reference range : <=4.0. The reference r bright was not used to int erpret this result as normal/abnormal . [facility] CenterJuvmishUQRBNHRSUW0950-13-06 06:44:00 Test Item Value Reference Range Interpretation Comments Basophils (test code = 0.2 See_Comment [Aut omated message] The Basophils) system which ge nerated this result tra nsmitted reference range : <=1.0. The reference r bright was not used to int erpret this result as normal/abnormal . [facility] CenterLgwvvtgBKBVOIHRTM9114-63-23 06:44:00 Test Item Value Reference Range Interpretation Comments Lymphocytes # (test code = Lymphocytes 0.8 1.0-5.5 #) [facility] CenterYbfzuvaAYTKLUGVQG3855-49-36 06:44:00 Test Item Value Reference Range Interpretation Comments Segs-Bands # (test code = Segs-Bands #) 18.4 1.5-8.1 [facility] CenterEuljoxmMKLMDJJSHI0858-97-32 06:44:00 Test Item Value Reference Range Interpretation Comments Monocytes (test code = Monocytes) 4.1 2.0-12.0 [facility] CenterUqqcgbkRGLBGVHQXR5337-52-78 06:44:00 Test Item Value Reference Range Interpretation Comments Monocytes # (test code 0.8 See_Comment [Aut omated message] The = Monocytes #) system which generated this result tra nsmitted reference range : <=0.8. The reference r bright was not used to int erpret this result as normal/abnormal . [facility] CenterMxorixwNSBVWJUUDJ7709-56-38 06:44:00 Test Item Value Reference Range Interpretation Comments MCH (test code = MCH) 28.7 pg 27.0-31.0 [facility] CenterIvuhiilKQQPJAMNIT8534-62-10 06:44:00 Test Item Value Reference Range Interpretation Comments MCHC (test code = MCHC) 34.1 32.0-36.0 [facility] CenterRihpamoXENEQZVWGY4090-31-66 06:44:00 Test Item Value Reference Range Interpretation Comments RDW (test code = RDW) 14.2 11.5-14.5 [facility] CenterNjhpndlZXATLWEPTE5354-52-96 06:44:00 Test Item Value Reference Range Interpretation Comments Platelet (test code = Platelet) 299 133-450 [facility] CenterAcqqhemGJSPXBMFQO4762-03-12 06:44:00 Test Item Value Reference Range Interpretation Comments MPV (test code = MPV) 9.3 7.4-10.4 [facility] CenterNovxxulZHKLPJGMFI7430-04-87 06:44:00 Test Item Value Reference Range Interpretation Comments Hct (test code = Hct) 37.8 42.0-54.0 [facility] CenterQinxfpbSOAWLYIWDN7885-07-38 06:44:00 Test Item Value Reference Range Interpretation Comments MCV (test code = MCV) 84.3 80.0-94.0 [facility] HospitalEhjzofzHMPSJQMZCTDN5973-62-06 02:41:00 Test Item Value Reference Range Interpretation Comments Sodium Lvl (test code = Sodium Lvl) 140 135-145 [facility]2017-12-19 02:41:00 Test Item Value Reference Range Interpretation Comments Lactic Acid Lvl (test code = Lactic 1.7 0.5-2.2 Acid Lvl) [facility] HospitalOjfmcrxFSVMKWFDQEDD8166-23-02 02:41:00 Test Item Value Reference Range Interpretation Comments AGAP (test code = AGAP) 14.5 10.0-20.0 [facility] HospitalPuxhbymQYDMWKBEKMKR5200-05-92 02:41:00 Test Item Value Reference Range Interpretation Comments Chloride Lvl (test code = Chloride Lvl) 106 95-109 [facility] HospitalPhvtwujDVZDZTFGIBRG6415-84-76 02:41:00 Test Item Value Reference Range Interpretation Comments CO2 (test code = CO2) 23 24-32 [facility] HospitalMixodyvGCGGPYPVUGTF5399-53-44 02:41:00 Test Item Value Reference Range Interpretation Comments Calcium Lvl (test code = Calcium Lvl) 8.3 8.5-10.5 [facility] HospitalFtjuajaCNNDSRDDJEHA2790-62-60 02:41:00 Test Item Value Reference Range Interpretation Comments eGFR (test code = eGFR) 51 [facility] HospitalVeuwqvxYNWMFKFCNAAA4672-82-94 02:41:00 Test Item Value Reference Range Interpretation Comments Potassium Lvl (test code = Potassium 3.5 3.5-5.1 Lvl) [facility] HospitalWclyvoqWVIXDRRYDISZ2015-24-34 02:41:00 Test Item Value Reference Range Interpretation Comments Sodium Lvl (test code = Sodium Lvl) 140 135-145 [place] 899797-12-19 02:41:00 Test Item Value Reference Range Interpretation Comments Glucose Lvl (test code = Glucose Lvl) 180 70-99 [facility] HospitalLqbuixlZZOIYCFFMKKO1955-63-92 02:41:00 Test Item Value Reference Range Interpretation Comments BUN (test code = BUN) 14 7-22 [facility] HospitalEcbpwglJEJLWAGHEHEK0618-35-32 02:41:00 Test Item Value Reference Range Interpretation Comments Creatinine Lvl (test code = Creatinine 1.07 0.50-1.40 Lvl) [facility] CenterRoynklbBVYBBZFVNF5247-20-64 02:41:00 Test Item Value Reference Range Interpretation Comments MPV (test code = MPV) 9.2 7.4-10.4 [facility] CenterJgckpvcLREDRBVOWC0334-86-81 02:41:00 Test Item Value Reference Range Interpretation Comments Platelet (test code = Platelet) 302 133-450 [facility] CenterFckijssJBUAWHADIY1698-13-01 02:41:00 Test Item Value Reference Range Interpretation Comments MCH (test code = MCH) 28.3 pg 27.0-31.0 [facility] HospitalFlxhtofYBPPFSBBTYRO0106-70-39 02:41:00 Test Item Value Reference Range Interpretation Comments Glucose Lvl (test code = Glucose Lvl) 180 70-99 [facility] HospitalJrordkoYQFJZSVRMGRQ0338-98-65 02:41:00 Test Item Value Reference Range Interpretation Comments Potassium Lvl (test code = Potassium 3.5 3.5-5.1 Lvl) [facility] CenterHvfwufvUBGECNUHMU1708-99-51 02:41:00 Test Item Value Reference Range Interpretation Comments MCV (test code = MCV) 83.6 80.0-94.0 [facility] CenterTkkdeiwPMHQHJBISI1776-66-73 02:41:00 Test Item Value Reference Range Interpretation Comments RDW (test code = RDW) 14.1 11.5-14.5 [facility] CenterGxsnhdrGRXBUAPYKC0051-40-48 02:41:00 Test Item Value Reference Range Interpretation Comments MCHC (test code = MCHC) 33.8 32.0-36.0 [facility] CenterFnhmkekATPGDFMTMR4842-45-51 02:41:00 Test Item Value Reference Range Interpretation Comments Hct (test code = Hct) 38.7 42.0-54.0 [facility] CenterVoldizeRNRBNURXDL3723-65-46 02:41:00 Test Item Value Reference Range Interpretation Comments Hgb (test code = Hgb) 13.1 14.0-18.0 [facility] CenterExrqjtdSAZXRIEWWJ8756-93-24 02:41:00 Test Item Value Reference Range Interpretation Comments RBC (test code = RBC) 4.63 4.70-6.10 [facility] CenterIlbjeaeDPMEXCVLLF8729-58-23 02:41:00 Test Item Value Reference Range Interpretation Comments WBC (test code = WBC) 30.1 3.7-10.4 [facility] CenterOyokulqDMLWNFSYWG2834-23-43 02:41:00 Test Item Value Reference Range Interpretation Comments Estimated % Lysis Rapid 1.2 See_Comment [Au tomated message] The (test code = Estimated syste m which generated % Lysis Rapid) this result t ransmitted reference range : <=7.5. The reference r bright was not used to int erpret this result as normal/abnormal . [facility] CenterXhqfvlvUXXCUFLLRX5625-74-64 02:41:00 Test Item Value Reference Range Interpretation Comments G-value Rapid (test code = G-value 13.7 5.0-11.6 Rapid) [facility] CenterVbfzlstYIHTZIXHGK5390-45-11 02:41:00 Test Item Value Reference Range Interpretation Comments Max Amplitude Rapid (test code = Max 73 mm 52-71 Amplitude Rapid) [facility] CenterMjxerrdXOEHWGHWML2818-25-52 02:41:00 Test Item Value Reference Range Interpretation Comments Split Point Rapid (test code = Split 0.5 min Point Rapid) [facility] CenterTkqmjznIQTEEFJWQI5495-00-04 02:41:00 Test Item Value Reference Range Interpretation Comments ACT (TEG) Rapid (test code = ACT (TEG) 105 s 86-118 Rapid) [facility] CenterBicglazHPSTLRSJCV0230-91-93 02:41:00 Test Item Value Reference Range Interpretation Comments K-time Rapid (test code = K-time 0.9 min 0.6-2.3 Rapid) [facility] CenterEepnqcdWPRWTHYNDX1971-10-99 02:41:00 Test Item Value Reference Range Interpretation Comments Angle Rapid (test code = Angle 78 degrees 64-80 Rapid) [facility] CenterFjyfichZEPBALICIG9033-19-70 02:41:00 Test Item Value Reference Range Interpretation Comments R-time Rapid (test code = R-time 0.6 min 0.4-0.7 Rapid) [facility] CenterPdtmcfuMETFFNYFZF3989-09-82 02:41:00 Test Item Value Reference Range Interpretation Comments Plt Morph (test code = Normal (08/06/17 8:41 Plt Morph) PM) [facility] CenterNsyvmldQXEEWSZMZW8855-93-12 02:41:00 Test Item Value Reference Range Interpretation Comments RBC Morph (test code = Normal (08/06/17 8:41 RBC Morph) PM) [facility] CenterMwtvnogPFOVLDCYUO2399-11-79 02:41:00 Test Item Value Reference Range Interpretation Comments Monocytes (test code = Monocytes) 0.0 2.0-12.0 [facility] CenterZzouujnCGVIMUYKLF3240-98-55 02:41:00 Test Item Value Reference Range Interpretation Comments Atypical Lymphs (test code = Atypical 0.0 Lymphs) [facility] CenterPtnjqkpCPIJELAGSA5606-50-68 02:41:00 Test Item Value Reference Range Interpretation Comments Bands (test code = 10.0 See_Comment [Automat ed message] The Bands) system which ge nerated this result transmit alek reference range : <=11.0. The reference r bright was not used to interpr et this result as sumi l/abnormal. [facility] CenterEtnbragMKFFPSKFVI2511-08-33 02:41:00 Test Item Value Reference Range Interpretation Comments Lymphocytes (test code = Lymphocytes) 8.0 20.0-40.0 [facility] CenterQtoszgaDDIEBTOYVR7963-91-14 02:41:00 Test Item Value Reference Range Interpretation Comments Monocytes # (test code 0.0 See_Comment [Aut omated message] The = Monocytes #) system which generated this result tra nsmitted reference range : <=0.8. The reference r bright was not used to int erpret this result as normal/abnormal . [facility] CenterHiueeliLIYSDCEGSR4333-44-33 02:41:00 Test Item Value Reference Range Interpretation Comments Segs (test code = Segs) 82.0 45.0-75.0 [facility] CenterIpdmgzhBCVMGVXJGS1909-30-40 02:41:00 Test Item Value Reference Range Interpretation Comments Segs-Bands # (test code = Segs-Bands #) 27.7 1.5-8.1 [facility] CenterWadjiojRZRGFJJFJQ8085-18-60 02:41:00 Test Item Value Reference Range Interpretation Comments Lymphocytes # (test code = Lymphocytes 2.4 1.0-5.5 #) [facility]EhsuuucSHEWPATLWD3566-32-00 02:41:00 Test Item Value Reference Range Interpretation Comments Etoh (%) (test code = Etoh (%)) no gt [facility] HospitalSjjnwraPJXEEJVECW2371-28-52 02:41:00 Test Item Value Reference Range Interpretation Comments Ethanol Lvl (test code = Ethanol Lvl) no gt [facility] HospitalCHEM DVBSM5039-25-32 02:41:00 Test Item Value Reference Range Interpretation Comments Lactic Acid Lvl (test code = Lactic 1.7 0.5-2.2 Acid Lvl) [facility] HospitalSvdocpcMVXKEDJQQRYU4382-86-62 02:41:00 Test Item Value Reference Range Interpretation Comments AGAP (test code = AGAP) 14.5 10.0-20.0 [facility] HospitalLwbvrgjOUJOTGRLUCUF4047-65-07 02:41:00 Test Item Value Reference Range Interpretation Comments Chloride Lvl (test code = Chloride Lvl) 106 95-109 [facility] HospitalYcsnbsdKCZSHRRKMKCN9139-02-70 02:41:00 Test Item Value Reference Range Interpretation Comments CO2 (test code = CO2) 23 24-32 [facility] HospitalBtcihpxRKHVEKHKJBXQ7426-33-19 02:41:00 Test Item Value Reference Range Interpretation Comments Calcium Lvl (test code = Calcium Lvl) 8.3 8.5-10.5 [facility] HospitalPvcybrmXWMDHAZYSXTA5863-10-80 02:41:00 Test Item Value Reference Range Interpretation Comments eGFR (test code = eGFR) 51 [facility] HospitalGowiwabCDXEISNWPITP3786-67-83 02:41:00 Test Item Value Reference Range Interpretation Comments BUN (test code = BUN) 14 7-22 [facility] HospitalXlfcneeNBIGCXWCERVQ1763-74-84 02:41:00 Test Item Value Reference Range Interpretation Comments Creatinine Lvl (test code = Creatinine 1.07 0.50-1.40 Lvl) [facility] HospitalVldqdprCZOKUHPLGU3209-85-85 02:41:00 Test Item Value Reference Range Interpretation Comments MPV (test code = MPV) 9.2 7.4-10.4 [facility] CenterRdvliaqLVOYFSTWDF6966-85-54 02:41:00 Test Item Value Reference Range Interpretation Comments Platelet (test code = Platelet) 302 133-450 [facility] HospitalTjsbreaEEHTMSNALE4166-83-93 02:41:00 Test Item Value Reference Range Interpretation Comments MCH (test code = MCH) 28.3 pg 27.0-31.0 [facility] CenterOghmawnHEPAOUCYWI3555-83-14 02:41:00 Test Item Value Reference Range Interpretation Comments MCV (test code = MCV) 83.6 80.0-94.0 [facility] CenterAlnfrxaVMFALSVCBX2591-20-18 02:41:00 Test Item Value Reference Range Interpretation Comments RDW (test code = RDW) 14.1 11.5-14.5 [facility] [id number] 02:41:00 Test Item Value Reference Range Interpretation Comments MCHC (test code = MCHC) 33.8 32.0-36.0 [facility] CenterBfqzslkINIYEMQFDU4496-56-13 02:41:00 Test Item Value Reference Range Interpretation Comments Hct (test code = Hct) 38.7 42.0-54.0 [facility] Cent[id number] 02:41:00 Test Item Value Reference Range Interpretation Comments Hgb (test code = Hgb) 13.1 14.0-18.0 [facility] [id number] 02:41:00 Test Item Value Reference Range Interpretation Comments RBC (test code = RBC) 4.63 4.70-6.10 [facility] Cent[id number] 02:41:00 Test Item Value Reference Range Interpretation Comments WBC (test code = WBC) 30.1 3.7-10.4 [facility] [id number] 02:41:00 Test Item Value Reference Range Interpretation Comments Estimated % Lysis Rapid 1.2 See_Comment [Au tomated message] The (test code = Estimated syste m which generated % Lysis Rapid) this result t ransmitted reference range : <=7.5. The reference r bright was not used to int erpret this result as normal/abnormal . [facility] CenterQqoexnyFGGOBOZOTF9676-29-09 02:41:00 Test Item Value Reference Range Interpretation Comments G-value Rapid (test code = G-value 13.7 5.0-11.6 Rapid) [facility] [id number] 02:41:00 Test Item Value Reference Range Interpretation Comments Max Amplitude Rapid (test code = Max 73 mm 52-71 Amplitude Rapid) [facility] CenterVfinkckHYDHURNPHG1862-21-84 02:41:00 Test Item Value Reference Range Interpretation Comments Split Point Rapid (test code = Split 0.5 min Point Rapid) [facility] CenterDwikfauNSHWFTEIJP2986-25-06 02:41:00 Test Item Value Reference Range Interpretation Comments ACT (TEG) Rapid (test code = ACT (TEG) 105 s 86-118 Rapid) [facility] CenterGbtvgxbWICATVDFIP4802-28-16 02:41:00 Test Item Value Reference Range Interpretation Comments K-time Rapid (test code = K-time 0.9 min 0.6-2.3 Rapid) [facility] CenterWqmxvqcUQCZOEYYJW0084-04-73 02:41:00 Test Item Value Reference Range Interpretation Comments Angle Rapid (test code = Angle 78 degrees 64-80 Rapid) [facility] CenterQvfwheiLLLTYGJHQB8412-15-27 02:41:00 Test Item Value Reference Range Interpretation Comments R-time Rapid (test code = R-time 0.6 min 0.4-0.7 Rapid) [facility] CenterVkintmaYAYHRSOXZN0232-03-94 02:41:00 Test Item Value Reference Range Interpretation Comments Plt Morph (test code = Normal (08/06/17 8:41 Plt Morph) PM) [facility] Cent[id number] 02:41:00 Test Item Value Reference Range Interpretation Comments RBC Morph (test code = Normal (08/06/17 8:41 RBC Morph) PM) [facility] CenterMotyxdnVVOUASERAL6950-44-36 02:41:00 Test Item Value Reference Range Interpretation Comments Monocytes (test code = Monocytes) 0.0 2.0-12.0 [facility] Cent[id number] 02:41:00 Test Item Value Reference Range Interpretation Comments Atypical Lymphs (test code = Atypical 0.0 Lymphs) [facility] [id number] 02:41:00 Test Item Value Reference Range Interpretation Comments Bands (test code = 10.0 See_Comment [Automat ed message] The Bands) system which ge nerated this result transmit alek reference range : <=11.0. The reference r bright was not used to interpr et this result as sumi l/abnormal. [facility] CenterLwzkfedPDGSSONZET4177-69-38 02:41:00 Test Item Value Reference Range Interpretation Comments Lymphocytes (test code = Lymphocytes) 8.0 20.0-40.0 [facility] CenterUikrcxhWPMAMLZLHB1430-89-09 02:41:00 Test Item Value Reference Range Interpretation Comments Monocytes # (test code 0.0 See_Comment [Aut omated message] The = Monocytes #) system which generated this result tra nsmitted reference range : <=0.8. The reference r bright was not used to int erpret this result as normal/abnormal . [facility]NvnkvujYEDOEWJVXR4639-34-37 02:41:00 Test Item Value Reference Range Interpretation Comments Segs (test code = Segs) 82.0 45.0-75.0 [facility]ErfsrklZDUXZAWCQQ0555-63-70 02:41:00 Test Item Value Reference Range Interpretation Comments Segs-Bands # (test code = Segs-Bands #) 27.7 1.5-8.1 [facility] WasobvsWZBBTTHFCJ2575-09-84 02:41:00 Test Item Value Reference Range Interpretation Comments Lymphocytes # (test code = Lymphocytes 2.4 1.0-5.5 #) [facility]entonAmfftdsPRMCQEGJRF5851-01-69 02:41:00 Test Item Value Reference Range Interpretation Comments Etoh (%) (test code = Etoh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
--- NOTE | 2023-02-27 07:37 | EDPHYS ---
Physician Documentation [facility] Name: Chandan Kimball Age: 22 yrs Sex: Male : 2000 Arrival Date: 02/27/2023 Time: 06:59 Bed 18 Private MD: ED Physician Kalin Kerns HPI: 02/27 07:23 This 22 yrs old Male presents to ER via Ambulatory with complaints of Low Back ms3 Pain. 07:23 22-year-old male with past medical history of ADD/ADHD, PTSD presents for low back pain ms3 that is been ongoing for 1 month. Patient states he is taken ibuprofen with relief in his symptoms. Patient states his pain is currently a 7/10. Patient denies numbness, weakness, bowel or bladder incontinence. Patient denies inciting factors.. Historical: - Allergies: 07:16 Hydroxyzine; ss - Home Meds: 07:16 None [Active]; ss - PMHx: 07:16 ADD/ADHD; PTSD-self dx; ss - PSHx: 07:16 None; ss - Immunization history:: Client reports having NOT received the Covid vaccine. - Social history:: Smoking status: Reported history of juuling and/or vaping. ROS: 07:23 Constitutional: Negative for fever, and chills. Neck: Negative for injury, pain, and ms3 swelling, Cardiovascular: Negative for chest pain, and palpitations. Respiratory: Negative for shortness of breath, cough, wheezing, and pleuritic chest pain, Abdomen/GI: Negative for abdominal pain, nausea, vomiting, diarrhea, and constipation, MS/Extremity: Negative for injury and deformity, Skin: Negative for injury, rash, and discoloration. 07:23 Back: Positive for pain with movement. 07:23 All other systems are negative. Exam: 07:23 Constitutional: This is a well developed, well nourished patient who is awake, alert, ms3 and in no acute distress. Head/Face: Normocephalic, atraumatic. Neck: Trachea midline, no cervical lymphadenopathy. Supple, full range of motion without nuchal rigidity, or vertebral point tenderness. No Meningismus. Chest/axilla: Normal chest wall appearance and motion. Nontender with no deformity. Cardiovascular: Regular rate and rhythm with a normal S1 and S2. No gallops, murmurs, or rubs. Normal PMI, no JVD. No pulse deficits. Respiratory: Lungs have equal breath sounds bilaterally, clear to auscultation and percussion. No rales, rhonchi or wheezes noted. No increased work of breathing, no retractions or nasal flaring. Abdomen/GI: Soft, non-tender, with normal bowel sounds. No distension or tympany. No guarding or rebound. No evidence of tenderness throughout. 07:23 Back: pain, that is moderate, ROM is normal, normal spinal alignment noted, CVA tenderness, is absent, muscle spasm, is appreciated in the left low back. Vital Signs: 07:14 BP 138 / 65; Pulse 88; Resp 15; Temp 98.5(TE); Pulse Ox 99% ; Weight 127.01 kg; Height ss 5 ft. 9 in. ; Pain 7/10; 07:56 BP 136 / 71; Pulse 85; Resp 18; Pulse Ox 99% on R/A; ld1 07:14 Body Mass Index 41.35 (127.01 kg, 175.26 cm) ss 07:14 Pain Scale: Adult ss MDM: 07:20 Patient medically screened. ms3 07:23 Differential diagnosis: strain, sciatica, Herniated disc. ms3 07:37 Data reviewed: vital signs, nurses notes, and as a result, I will discharge patient. ms3 Care significantly affected by the following Social Determinants of Health: Poor access to healthcare and/or lack of insurance. Counseling: I had a detailed discussion with the patient and/or guardian regarding: the historical points, exam findings, and any diagnostic results supporting the discharge/admit diagnosis, the need for outpatient follow up, to return to the emergency department if symptoms worsen or persist or if there are any questions or concerns that arise at home. ED course: Discussed physical exam findings with patient. Patient offered medications in the emergency department and states he prefers a prescription to take at home. Patient is ambulatory in the emergency department, without numbness, weakness, incontinence. Patient denies fevers or chills. Patient to follow-up with Dr. Gibbs in 2 to 3 days. Patient understands and agrees with plan. All questions were answered. Return precautions discussed include worsening symptoms, fevers, chills, nausea, vomiting, weakness, numbness, incontinence, worsening symptoms, or any other concerns.. Administered Medications: No medications were administered Disposition Summary: 02/27/23 07:36 Discharge Ordered Location: Home ms3 Condition: Stable ms3 Diagnosis - Low back pain ms3 Followup: ms3 - With: Conor Gibbs MD - When: 2 - 3 days - Reason: Recheck today's complaints Discharge Instructions: - Discharge Summary Sheet ms3 - Acute Back Pain, Adult ms3 Forms: - Work release form ds4 - Medication Reconciliation Form ms3 - Thank You Letter ms3 - Antibiotic Education ms3 - Prescription Opioid Use ms3 - Patient Portal Instructions.htm ms3 Prescriptions: - Ibuprofen 600 mg Oral Tablet - take 1 tablet by ORAL route every 6 hours As needed take with food; 30 tablet; ms3 Refills: 0, Product Selection Permitted - Cyclobenzaprine 10 mg Oral Tablet - take 1 tablet by ORAL route every 8 hours As needed; 30 tablet; Refills: 0, ms3 Product Selection Permitted Signatures: Yanira Sung RN RN Kalin Barbour DO DO ms3
--- NOTE | 2023-02-27 07:37 | ER ---
Nurse's Notes [facility] Name: Chandan Kimball Age: 22 yrs Sex: Male : 2000 Arrival Date: 02/27/2023 Time: 06:59 Bed 18 Private MD: Diagnosis: Low back pain Presentation: 02/27 07:14 Chief complaint: Patient states: mid back pain x 1 month. No known injury. Coronavirus ss screen: Client denies travel out of the [place] in the last 14 days. Ebola Screen: Patient denies exposure to infectious person. Patient denies travel to an Ebola-affected area in the 21 days before illness onset. Initial Sepsis Screen: Does the patient meet any 2 criteria? No. Patient's initial sepsis screen is negative. Does the patient have a suspected source of infection? No. Patient's initial sepsis screen is negative. Risk Assessment: Do you want to hurt yourself or someone else? Patient reports no desire to harm self or others. Onset of symptoms was January 18, 2023. 07:14 Method Of Arrival: Ambulatory ss 07:14 Acuity: TESS 4 ss Triage Assessment: 07:57 General: Appears in no apparent distress. comfortable, Behavior is calm, cooperative, ld1 appropriate for age. Pain: Complains of pain in back Pain does not radiate. EENT: No signs and/or symptoms were reported regarding the EENT system. Neuro: Level of Consciousness is awake, alert, obeys commands, Oriented to person, place, time, situation. Cardiovascular: Capillary refill < 3 seconds Patient's skin is warm and dry. Respiratory: Airway is patent Respiratory effort is even, unlabored. GI: Abdomen is flat, non-distended. : No signs and/or symptoms were reported regarding the genitourinary system. Derm: No signs and/or symptoms reported regarding the dermatologic system. Musculoskeletal: No signs and/or symptoms reported regarding the musculoskeletal system. Historical: - Allergies: 07:16 Hydroxyzine; ss - Home Meds: 07:16 None [Active]; ss - PMHx: 07:16 ADD/ADHD; PTSD-self dx; ss - PSHx: 07:16 None; ss - Immunization history:: Client reports having NOT received the Covid vaccine. - Social history:: Smoking status: Reported history of juuling and/or vaping. Screenin:[address] [facility] ED Fall Risk Assessment (Adult) History of falling in the last 3 months, ld1 including since admission No falls in past 3 months (0 pts). Abuse screen: Denies threats or abuse. Denies injuries from another. Nutritional screening: No deficits noted. Tuberculosis screening: No symptoms or risk factors identified. Assessment: 07:56 Reassessment: No changes from previously documented assessment. Patient is alert, ld1 oriented x 3, equal unlabored respirations, skin warm/dry/pink. See triage assessment. Vital Signs: 07:14 BP 138 / 65; Pulse 88; Resp 15; Temp 98.5(TE); Pulse Ox 99% ; Weight 127.01 kg; Height ss 5 ft. 9 in. ; Pain 7/10; 07:56 BP 136 / 71; Pulse 85; Resp 18; Pulse Ox 99% on R/A; ld1 07:14 Body Mass Index 41.35 (127.01 kg, 175.26 cm) ss 07:14 Pain Scale: Adult ss ED Course: 07:02 Patient arrived in ED. rg4 07:12 Kalin Kerns DO is Attending Physician. ms3 07:16 Triage completed. ss 07:16 Arm band placed on right wrist. ss 07:36 Conor Gibbs MD is Referral Physician. ms3 07:56 Jessi Kerns, QIAN is Primary Nurse. ld1 07:56 Patient has correct armband on for positive identification. Placed in gown. Bed in low ld1 position. Call light in reach. Side rails up X2. Pulse ox on. NIBP on. Door closed. Noise minimized. Warm blanket given. 07:56 No provider procedures requiring assistance completed. Patient did not have IV access ld1 during this emergency room visit. Administered Medications: No medications were administered Medication: 07:56 VIS not applicable for this client. ld1 Outcome: 07:36 Discharge ordered by . ms3 07:56 Discharged to home ambulatory. ld1 07:56 Condition: stable 07:56 Discharge instructions given to patient, Instructed on discharge instructions, follow up and referral plans. Demonstrated understanding of instructions, follow-up care. 08:00 Patient left the ED. ld1 Signatures: Yanira Sung RN RN Sera Lindquist rg4 Kalin Kerns DO DO ms3 Jessi Kerns, RN RN ld1
[2023-02-27 08:05] VITALS: TEMP 98.5; O2SAT 99
[2023-02-27 08:06] VITALS: BP 136/71
== END 2023-02-27 08:00 | disposition home or self-care (01) ==
LOC: ER 06:59
DX: M54.50 Low back pain, unspecified (principal)
CPT/HCPCS: 99283

== ENCOUNTER 2024-01-19 08:56 | Emergency (ER) | payer SELFPAY ==
[2024-01-19 09:23] LABS: Absolute Basophils 0.1 K/uL (0-0.5); Absolute Eosinophils 0.2 K/uL (0-0.5); Absolute Lymphocytes (CBC) 1.8 K/uL (0.7-4.9); Absolute Monocytes 0.5 K/uL (0.1-1.3); Basophils % 0.8 % (0-1.3); Eosinophils % 2.6 % (0-4.4); Hematocrit 44.1 % (39.6-49.0); Hemoglobin 14.8 g/dL (13.6-17.9); Lymphocytes % 23.8 % (15.3-44.8); MCH 28.3 pg (27.0-35.0); MCHC 33.5 g/dL (32.0-36.0); MCV 84.3 fL (80-100); MPV 9.2 fL (7.6-11.3); Neutrophils % 66.8 % (41.7-73.7); Platelets 324 thou/uL (152-406); RBC Red Blood Cell Count 5.23 M/uL (4.33-5.43); Red Cell Distribution Width 13.8 % (12.1-15.2)
[2024-01-19] MEDS ORDERED: KETOROLAC 30 MG/ML INJ ONE (09:26)
[2024-01-19 09:37] LABS: SARS-CoV-2 Antigen CONTROL BLUE LINE VIS/BG OK; SARS-CoV-2 Antigen Rapid Res Negative (Negative)
[2024-01-19 09:45] LABS: Anion Gap 7.2 mEq/L (5.0-15.0); Magnesium 2.4 mg/dL (1.6-2.4); Potassium 4.2 mEq/L (3.5-5.1); Troponin High Sensitivity 4.7 pg/mL (<58.9)
--- NOTE | 2024-01-19 10:20 | RAD REPORT ---
EXAM DESCRIPTION: RAD - Chest Single View - 01/19/2024 10:14 am CLINICAL HISTORY: CHEST PAIN COMPARISON: Chest Single View dated 12/18/2022; Chest Single View dated 01/21/2022 FINDINGS: Lines: None. Lungs: No evidence of edema or pneumonia. Pleural: No significant pleural effusions or pneumothorax. Cardiac: The heart size is within normal limits. Mediastinum: Within normal limits. Bones: No acute fractures. Other: None IMPRESSION: No acute cardiopulmonary disease.
--- NOTE | 2024-01-19 10:25 | EDPHYS ---
Physician Documentation [facility] Name: Chandan Kimball Age: 23 yrs Sex: Male : 2000 Arrival Date: 01/19/2024 Time: 08:56 Bed 19 Private MD: ED Physician Pavel Dexter HPI: 01/18 09:05 This 23 yrs old Male presents to ER via Unassigned with complaints of Chest sb4 Pain, Shortness Of Breath. 09:05 Onset: The symptoms/episode began/occurred 2 week(s) ago, and became worse this sb4 morning. Associated signs and symptoms: Pertinent positives: chest pain, congestion, cough, nasal discharge, shortness of breath. Modifying factors: The patient symptoms are alleviated by rest, the patient symptoms are aggravated by nothing. The patient has not experienced similar symptoms in the past. The patient has not recently seen a physician. Historical: - Allergies: 09:18 Hydroxyzine; mb9 - PMHx: 09:18 ADD/ADHD; PTSD-self dx; mb9 - PSHx: 09:18 None; mb9 - Immunization history:: Adult Immunizations up to date. - Infectious Disease History:: Denies. - Social history:: Smoking status: Patient denies any tobacco usage or history of. ROS: 09:05 Constitutional: Negative for fever, chills, and weight loss, sb4 09:05 ENT: Positive for nasal discharge, sinus congestion, 09:05 Cardiovascular: Positive for chest pain, 09:05 Respiratory: Positive for cough, shortness of breath, 09:05 All other systems are negative, Exam: 09:05 Head/Face: Normocephalic, atraumatic. Eyes: Extra-ocular motions intact. Periorbital sb4 areas with no swelling, redness, or edema. ENT: Mucous membranes moist. Cardiovascular: Regular rate and rhythm with a normal S1 and S2. Respiratory: Lungs have equal breath sounds bilaterally, clear to auscultation and percussion. No rales, rhonchi or wheezes noted. No increased work of breathing, no retractions or nasal flaring. Abdomen/GI: Soft, non-tender, no distension. Skin: Warm, dry with normal turgor. Normal color with no rashes, no lesions, and no evidence of cellulitis. MS/ Extremity: Pulses equal, no cyanosis. Neurovascular intact. Full, normal range of motion. 09:05 Constitutional: The patient appears in no acute distress, alert, awake, obese, Vital Signs: 09:04 BP 149 / 89; Pulse 84; Resp 15; Temp 98.5(O); Pulse Ox 100% on R/A; Weight 127.01 kg hb (R); Height 5 ft. 9 in. (R); Pain 0/10; 10:24 BP 124 / 93; Pulse 86; Resp 18; Pulse Ox 100% on R/A; mb9 09:04 Body Mass Index 41.35 (127.01 kg, 175.26 cm) hb 09:04 Pain Scale: Adult hb MDM: 09:04 Patient medically screened. sb4 10:24 Data reviewed: vital signs, nurses notes, lab test result(s), EKG, radiologic studies, sb4 and as a result, I will discharge patient. Counseling: I had a detailed discussion with the patient and/or guardian regarding the historical points, exam findings, and any diagnostic results supporting the discharge/admit diagnosis, the presence of at least one elevated blood pressure reading (>120/80) during this emergency department visit, lab results, radiology results, the need for outpatient follow up, for definitive care, to return to the emergency department if symptoms worsen or persist or if there are any questions or concerns that arise at home. 01/18 09:04 Order name: Basic Metabolic Panel; Complete Time: 09:47 sb4 01/18 09:04 Order name: CBC with Diff; Complete Time: 09:28 sb4 01/18 09:04 Order name: Magnesium; Complete Time: 09:47 sb4 01/18 09:04 Order name: NT PRO-BNP; Complete Time: 09:47 sb4 01/18 09:04 Order name: Troponin HS; Complete Time: 09:47 sb4 01/18 09:04 Order name: SARS RAPID; Complete Time: 09:38 sb4 01/18 09:04 Order name: Flu; Complete Time: 09:56 sb4 01/18 09:04 Order name: XRAY Chest (1 view); Complete Time: 10:21 sb4 01/18 09:04 Order name: Cardiac monitoring; Complete Time: 09:09 sb4 01/18 09:04 Order name: EKG - Nurse/Tech; Complete Time: 09:09 sb4 01/18 09:04 Order name: IV Saline Lock; Complete Time: :17 sb4 01/18 09:04 Order name: Labs collected and sent; Complete Time: : sb4 01/18 09:04 Order name: O2 Per Protocol; Complete Time: : sb4 01/18 09:04 Order name: O2 Sat Monitoring; Complete Time: : sb4 EC:18 Rate is 81 beats/min. Rhythm is regular, Normal Sinus Rhythm. NM interval is normal at sb4 148 msec. QRS interval is normal at 76 msec. QT interval is normal at 352 msec. No Q waves. T waves are Normal. No ST changes noted. Clinical impression: Normal ECG and No evidence of ischemia. Interpreted by me. Reviewed by me. Administered Medications: 09: Drug: Ketorolac IVP 30 mg IVP once Route: IVP; Site: right antecubital; mb9 10:24 Follow up: Response: No adverse reaction mb9 Disposition Summary: 01/19/24 10:24 Discharge Ordered Notes: Location: Home sb4 Problem: an ongoing problem sb4 Symptoms: have improved sb4 Condition: Stable sb4 Diagnosis - Acute bronchitis, unspecified sb4 - Costochondritis sb4 Followup: sb4 - With: Emergency Department - When: As needed - Reason: Trouble breathing, Worsening of condition Discharge Instructions: - Discharge Summary Sheet sb4 - Acute Bronchitis, Adult sb4 - Costochondritis, Tztu-fs-Hcmn sb4 Forms: - Patient Portal Instructions sb4 - Leadership Thank You Letter sb4 - Work release form mb9 Prescriptions: - albuterol sulfate 90 mcg/actuation Inhalation HFA Aerosol Inhaler - inhale 2 inhalation INHALATION route every 6 hours as needed for shortness of sb4 breath or wheezing; 1 Applicator; Refills: 0, Product Selection Permitted - Ibuprofen 800 mg Oral Tablet - take 1 tablet ORAL route every 8 hours As needed take with food; 30 tablet; sb4 Refills: 0, Product Selection Permitted - Prednisone 20 mg Oral Tablet - take 1 tablet ORAL route every 12 hours for 5 days; 10 tablet; Refills: 0, sb4 Product Selection Permitted Signatures: Dispatcher [employer] Kylah Stephens PA-C PA-C sb4 Nelida Arnold RN RN mb9 Corrections: (The following items were deleted from the chart) 09:05 09:05 Chest Single View+RAD.RAD.BRZ ordered. EDMS EDMS
--- NOTE | 2024-01-19 10:25 | ER ---
Nurse's Notes [facility] Name: Chandan Kimball Age: 23 yrs Sex: Male : 2000 Arrival Date: 01/19/2024 Time: 08:56 Bed 19 Private MD: Diagnosis: Acute bronchitis, unspecified;Costochondritis Presentation: 01/18 09:04 Chief complaint: Worsening intermittent midsternal chest pain, SOB, and productive hb cough x 2 weeks. Coronavirus screen: At this time, the client does not indicate any symptoms associated with coronavirus-19. Ebola Screen: No symptoms or risks identified at this time. Initial Sepsis Screen: Does the patient meet any 2 criteria? HR > 90 bpm. No. Patient's initial sepsis screen is negative. Does the patient have a suspected source of infection? No. Patient's initial sepsis screen is negative. Risk Assessment: Do you want to hurt yourself or someone else? Patient reports no desire to harm self or others. Onset of symptoms was January 05, 2024. 09:04 Method Of Arrival: Ambulatory hb 09:04 Acuity: TESS 3 hb Triage Assessment: 09:13 General: Appears in no apparent distress. Behavior is calm, cooperative. Pain: hb Complains of pain in mid-sternal area Pain currently is 0 out of 10 on a pain scale. at worst was 10 out of 10 on a pain scale. Is intermittent. Neuro: Level of Consciousness is awake, alert, obeys commands, Oriented to person, place, time, situation. Cardiovascular: Patient's skin is warm and dry. Rhythm is regular. Respiratory: Reports shortness of breath cough that is productive, Respiratory effort is even, unlabored, Respiratory pattern is regular, symmetrical. Historical: - Allergies: 09:18 Hydroxyzine; mb9 - PMHx: 09:18 ADD/ADHD; PTSD-self dx; mb9 - PSHx: :18 None; mb9 - Immunization history:: Adult Immunizations up to date. - Infectious Disease History:: Denies. - Social history:: Smoking status: Patient denies any tobacco usage or history of. Screenin:18 [facility] ED Fall Risk Assessment (Adult) History of falling in the last 3 months, mb9 including since admission No falls in past 3 months (0 pts) Confusion or Disorientation No (0 pts) Intoxicated or Sedated No (0 pts) Impaired Gait No (0 pts) Mobility Assist Device Used No (0 pt) Altered Elimination No (0 pt) Score/Fall Risk Level 0 - 2 = Low Risk Oriented to surroundings, Maintained a safe environment, Educated pt \T\ family on fall prevention, incl call for assistance when getting out of bed. Abuse screen: Denies threats or abuse. Nutritional screening: No deficits noted. Tuberculosis screening: No symptoms or risk factors identified. Assessment: 09:19 General: Appears in no apparent distress. Behavior is calm, cooperative. Pain: mb9 Complains of pain in chest Pain radiates to mid-sternal area Pain currently is 7 out of 10 on a pain scale. Quality of pain is described as throbbing, Pain began 2 weeks ago Is intermittent, Aggravated by coughing. Neuro: Sanchez Agitation-Sedation Scale (RASS): 0 - Alert and Calm Level of Consciousness is awake, alert, obeys commands, Oriented to person, place, time, situation, Appropriate for age. Cardiovascular: Reports chest pain, shortness of breath, Heart tones S1 S2 present Patient's skin is warm and dry. Rhythm is regular. Respiratory: Reports shortness of breath cough that is Airway is patent Respiratory effort is even, unlabored, Respiratory pattern is regular, symmetrical, Breath sounds are clear bilaterally. GI: Abdomen is round non-distended, Bowel sounds present X 4 quads. Abd is soft and non tender X 4 quads. : No signs and/or symptoms were reported regarding the genitourinary system. EENT: No signs and/or symptoms were reported regarding the EENT system. Derm: Skin is pink, warm \T\ dry. Musculoskeletal: Range of motion: intact in all extremities. 10:24 Reassessment: No changes from previously documented assessment. Patient and/or family mb9 updated on plan of care and expected duration. Pain level reassessed. Patient is alert, oriented x 3, equal unlabored respirations, skin warm/dry/pink. Vital Signs: 09:04 BP 149 / 89; Pulse 84; Resp 15; Temp 98.5(O); Pulse Ox 100% on R/A; Weight 127.01 kg hb (R); Height 5 ft. 9 in. (R); Pain 0/10; 10:24 BP 124 / 93; Pulse 86; Resp 18; Pulse Ox 100% on R/A; mb9 09:04 Body Mass Index 41.35 (127.01 kg, 175.26 cm) hb 09:04 Pain Scale: Adult hb ED Course: 08:57 Patient arrived in ED. ts1 08:58 Kylah Kovacs PA-C is PHCP. sb4 08:58 Pavel Dexter MD is Attending Physician. sb4 09:05 EKG done, by ED staff, reviewed by Kylah Kovacs PA-C. hb 09:09 Nelida Arnold, RN is Primary Nurse. mb9 09:11 Patient has correct armband on for positive identification. Placed in gown. Bed in low hb position. Call light in reach. Client placed on continuous cardiac and pulse oximetry monitoring. NIBP monitoring applied. traffic monitor specialist on. Pulse ox on. NIBP on. 09:13 Triage completed. hb 09:17 Initial lab(s) drawn, by me, sent to lab. COVID swab sent to lab. Flu and/or RSV swab mb9 sent to lab. Inserted saline lock: 20 gauge in right antecubital area, using aseptic technique. 09:18 Arm band placed on. mb9 09:18 Provided Education on: press call light if needing anything. mb9 09:18 No provider procedures requiring assistance completed. mb9 10:16 XRAY Chest (1 view) In Process Unspecified. EDMS 10:25 IV discontinued, intact, bleeding controlled, No redness/swelling at site. Pressure mb9 dressing applied. Administered Medications: 09:29 Drug: Ketorolac IVP 30 mg IVP once Route: IVP; Site: right antecubital; mb9 10:24 Follow up: Response: No adverse reaction mb9 Medication: 09:18 VIS not applicable for this client. mb9 Outcome: 10:24 Discharge ordered by . sb4 10:31 Discharged to home ambulatory, mb9 10:31 Condition: stable 10:31 Discharge instructions given to patient, Instructed on discharge instructions, follow up and referral plans. Demonstrated understanding of instructions, follow-up care, medications, Prescriptions given X 3, 10:31 Patient left the ED. mb9 Signatures: [facility] ED[facility] Parisa Eli RN RN hb Brown, Sophia, PA-C PA-C sb4 Nelida ArnoldQIAN RN mb9 Pam Cueva PAS PAS ts1 Corrections: (The following items were deleted from the chart) 09:14 09:04 BP 149 / 89; Pulse 92bpm; Resp 15bpm; Pulse Ox 100% RA; Temp 98.5F Oral; 127.01 hb kg Reported; Height 5 ft. 9 in. Reported; BMI: 41.3; Pain 0/10, Adult; hb 09:25 09:04 Acuity: TESS 2 hb hb 10:25 10:24 BP 133 / 95; Pulse 86bpm; Resp 18bpm; Pulse Ox 100% RA; mb9 mb9
[2024-01-19 10:45] VITALS: BP 124/93; TEMP 98.5; O2SAT 100
--- NOTE | 2024-01-21 14:12 | EKG ---
Test Date: 2024-01-19 Test Time: 09:05:03 Electronics Technician: HB MEASUREMENT RESULTS: Intervals: Rate: 81 NV: 148 QRSD: 76 QT: 352 QTc: 408 Arco: P: 43 NV: 148 QRS: 19 T: 25 INTERPRETIVE STATEMENTS: Normal sinus rhythm Normal ECG Compared to ECG 12/18/2022 12:19:46 Sinus arrhythmia no longer present Left ventricular hypertrophy no longer present Electronically Signed On 01-21-24 14:06:33 CDT by Gamaliel Mckinney
== END 2024-01-19 10:31 | disposition home or self-care (01) ==
LOC: ER 08:56
DX: J20.9 Acute bronchitis, unspecified (principal); M94.0 Chondrocostal junction syndrome [Tietze]
CPT/HCPCS: 36415; 71045; 80048; 83735; 83880; 84484; 85025; 87804; 87811; 93005; 96374; 99285

== ENCOUNTER 2024-11-10 06:58 | Emergency (ER) | payer SELFPAY ==
--- NOTE | 2024-11-10 07:53 | ER ---
Nurse's Notes [facility] Name: Chandan Kimball Age: 24 yrs Sex: Male : 2000 Arrival Date: 11/10/2024 Time: 06:58 Bed DX5 Private MD: Diagnosis: Acute tonsillitis, unspecified Presentation: 11/10 07:13 Chief complaint: Patient states: sore throat X 1 week, worse on right side , no fever iw or chills. Coronavirus screen: At this time, the client does not indicate any symptoms associated with coronavirus-19. Ebola Screen: No symptoms or risks identified at this time. Initial Sepsis Screen: Does the patient meet any 2 criteria? No. Patient's initial sepsis screen is negative. Does the patient have a suspected source of infection? No. Patient's initial sepsis screen is negative. Risk Assessment: Do you want to hurt yourself or someone else? Patient reports no desire to harm self or others. Onset of symptoms was November 03, 2024. 07:13 Method Of Arrival: Ambulatory iw 07:13 Acuity: TESS 4 iw Historical: - Allergies: 07:14 Hydroxyzine; iw - PMHx: 07:14 ADD/ADHD; PTSD-self dx; iw - Immunization history:: Adult Immunizations not up to date. - Infectious Disease History:: Denies. - Social history:: Smoking status: Patient denies any tobacco usage or history of. Screenin:17 [facility] ED Fall Risk Assessment (Adult) History of falling in the last 3 months, iw including since admission No falls in past 3 months (0 pts) Confusion or Disorientation No (0 pts) Intoxicated or Sedated No (0 pts) Impaired Gait No (0 pts) Mobility Assist Device Used No (0 pt) Altered Elimination No (0 pt) Score/Fall Risk Level 0 - 2 = Low Risk Oriented to surroundings, Maintained a safe environment. Abuse screen: Denies threats or abuse. Nutritional screening: No deficits noted. Tuberculosis screening: No symptoms or risk factors identified. Assessment: 07:16 General: Appears in no apparent distress. Behavior is calm, cooperative. Pain: iw Complains of pain in throat. Neuro: Level of Consciousness is awake, alert, obeys commands, Oriented to person, place, time, situation, Moves all extremities. Full function. Cardiovascular: Patient's skin is warm and dry. Respiratory: Airway is patent Respiratory effort is even, unlabored. GI: Abdomen is non-distended. EENT: Throat is clear Derm: Skin is intact, is healthy with good turgor. Vital Signs: 07:13 BP 131 / 77; Pulse 87; Resp 18; Temp 98.2; Pulse Ox 100% on R/A; Weight 117.93 kg; iw Height 5 ft. 9 in. ; 07:13 Body Mass Index 38.39 (117.93 kg, 175.26 cm) iw ED Course: 07:06 Patient arrived in ED. [id number] 07:14 Triage completed. iw 07:15 Arm band placed on. iw 07:17 Patient has correct armband on for positive identification. Provided Education on: . iw 07:17 No provider procedures requiring assistance completed. Patient did not have IV access iw during this emergency room visit. 07:32 Remy Shepard MD is Attending Physician. ec2 08:20 Celi Cross RN is Primary Nurse. iw Administered Medications: 08:20 Drug: Amoxicillin-Clavulanate PO 875 mg PO once Route: PO; iw 08:45 Follow up: Response: No adverse reaction iw 08:20 Drug: Dexamethasone IM 10 mg IM once Route: IM; Site: right deltoid; iw 08:45 Follow up: Response: No adverse reaction iw Medication: 07:17 VIS not applicable for this client. iw Outcome: 07:52 Discharge ordered by . ec2 08:41 Discharged to home ambulatory, iw 08:41 Condition: good 08:41 Discharge instructions given to patient, Instructed on discharge instructions, follow up and referral plans. medication usage, Demonstrated understanding of instructions, follow-up care, medications, Prescriptions given X 1, 08:42 Patient left the ED. iw Signatures: Celi Cross RN RN iw Linn Anderson jj6 Remy Shepard MD MD ec2 Corrections: (The following items were deleted from the chart) 07:16 07:13 Pulse 87bpm; Resp 18bpm; Pulse Ox 100% RA; Temp 98.2F; 117.93 kg; Height 5 ft. 9 iw in.; BMI: 38.3; iw
--- NOTE | 2024-11-10 07:53 | EDPHYS ---
Physician Documentation [facility] Name: Chandan Kimball Age: 24 yrs Sex: Male : 2000 Arrival Date: 11/10/2024 Time: 06:58 Bed DX5 Private MD: ED Physician Remy Shepard HPI: 11/10 07:35 This 24 yrs old Male presents to ER via Ambulatory with complaints of Sore ec2 Throat. 07:35 Patient arrives today for evaluation of 1+ week of a sore throat. Patient been having a ec2 sore throat ongoing for 1 week, reports odynophagia. Reports no fevers, no chills, does report some bodyaches that is since resolved. No cough and cold symptoms. No issues with fluid intake. Has not taken any medications.. Historical: - Allergies: 07:14 Hydroxyzine; iw - PMHx: 07:14 ADD/ADHD; PTSD-self dx; iw - Immunization history:: Adult Immunizations not up to date. - Infectious Disease History:: Denies. - Social history:: Smoking status: Patient denies any tobacco usage or history of. ROS: 07:36 Constitutional: as per hpi ec2 Exam: 07:36 Constitutional: GEN: NAD Head: atraumatic Eyes: EOMI Ears: External ears are normal. ec2 Mouth: Posterior pharyngeal erythema with exudates present, no abscess noted. Anterocervical lymphadenopathy CV: regular rate LUNGS: no respiratory distress ABD: non-distended SKIN: no evidence of rashes MSK: no evidence of trauma Vital Signs: 07:13 BP 131 / 77; Pulse 87; Resp 18; Temp 98.2; Pulse Ox 100% on R/A; Weight 117.93 kg; iw Height 5 ft. 9 in. ; 07:13 Body Mass Index 38.39 (117.93 kg, 175.26 cm) iw MDM: 07:32 Medical Screening Exam initiated ec2 07:36 Data reviewed: vital signs, nurses notes. ED course: Patient arrives today for sore ec2 throat. Examination yields HEENT findings as above. Suspect tonsillitis. Will obtain strep swab, treat patient symptoms have patient antibiotic. Will discharge home with return precautions given.. 11/10 07:35 Order name: Group A Streptococcus Rapid; Complete Time: 08:24 ec2 Administered Medications: 08:20 Drug: Amoxicillin-Clavulanate PO 875 mg PO once Route: PO; iw 08:45 Follow up: Response: No adverse reaction iw 08:20 Drug: Dexamethasone IM 10 mg IM once Route: IM; Site: right deltoid; iw 08:45 Follow up: Response: No adverse reaction iw Disposition Summary: 11/10/24 07:52 Discharge Ordered Notes: Location: Home ec2 Condition: Stable ec2 Diagnosis - Acute tonsillitis, unspecified ec2 Followup: ec2 - With: Private Physician - When: - Reason: Re-evaluation by your physician Discharge Instructions: - Discharge Summary Sheet ec2 - Tonsillitis, [id number] ec2 Forms: - Medication Reconciliation Form ec2 - Antibiotic Education ec2 - Prescription Opioid Use ec2 - Patient Portal Instructions ec2 - Leadership Thank You Letter ec2 Prescriptions: - Augmentin 875-125 mg Oral Tablet - take 1 tablet ORAL route every 12 hours for 10 days; 20 tablet; Refills: 0, ec2 Product Selection Permitted Signatures: Dispatcher [employer] Celi Conley RN RN iw Remy Shepard MD MD ec2
[2024-11-10] MEDS ORDERED: dexAMETHasone 10 MG/ML VIAL ONE (08:15)
[2024-11-10] MEDS ORDERED: AMOX/K CLAV 875 MG TAB ONE (08:15)
[2024-11-10 08:46] VITALS: BP 131/77; TEMP 98.2; O2SAT 100
== END 2024-11-10 08:42 | disposition home or self-care (01) ==
LOC: ER 06:58
DX: J03.90 Acute tonsillitis, unspecified (principal)
CPT/HCPCS: 36415; 96372; 99284; J1100

== ENCOUNTER 2025-06-19 09:22 | Emergency (ER) | payer SELFPAY ==
--- NOTE | 2025-06-19 09:42 | EDPHYS ---
Physician Documentation [facility] Name: Chandan Kimball Age: 25 yrs Sex: Male : 2000 Arrival Date: 06/19/2025 Time: 09:22 Bed 20 Private MD: ED Physician Adonis Murray HPI: 06/19 09:37 This 25 yrs old Male presents to ER via Ambulatory with complaints of Cough, rn Congestion. 09:37 Patient reports 1 week of cough, sore throat, congestion. Denies shortness of breath. rn No trauma. No hemoptysis.. Historical: - Allergies: : Hydroxyzine; ll1 - PMHx: : ADD/ADHD; PTSD-self dx; ll1 - PSHx: 09:33 None; ll1 - Immunization history:: Adult Immunizations up to date. - Infectious Disease History:: Denies. - Social history:: Smoking status: Reported history of juuling and/or vaping. - Family history:: not pertinent. - Hospitalizations: : No recent hospitalization is reported. ROS: 09:37 Constitutional: Negative for fever, chills, and weight loss, ENT: Positive for rn congestion and sore throat Neck: Negative for injury, pain, and swelling, Respiratory: Negative for shortness of breath, cough, wheezing, and pleuritic chest pain, Exam: 09:37 Constitutional: This is a well developed, well nourished patient who is awake, alert, rn and in no acute distress. ENT: Bilateral tonsillar hypertrophy with exudate present. No evidence of peritonsillar abscess. Uvula midline, no stridor Neck: Trachea midline, no masses palpated, and no cervical lymphadenopathy. Supple, full range of motion without nuchal rigidity, or vertebral point tenderness. No Meningismus. Cardiovascular: Regular rate and rhythm. No pulse deficits. Neuro: Awake and alert, GCS 15 Vital Signs: 09:33 BP 148 / 106; Pulse 86; Resp 17; Temp 97.9; Pulse Ox 97% ; Weight 127.01 kg; Height 5 ll1 ft. 9 in. ; 09:33 Body Mass Index 41.35 (127.01 kg, 175.26 cm) ll1 MDM: 09:26 Medical Screening Exam initiated rn 09:37 Differential Diagnosis: Sinusitis Pharyngitis Viral Syndrome Other Tonsillitis. Data rn reviewed: vital signs, nurses notes, and as a result, I will discharge patient. Counseling: I had a detailed discussion with the patient and/or guardian regarding the historical points, exam findings, and any diagnostic results supporting the discharge/admit diagnosis, the need for outpatient follow up, to return to the emergency department if symptoms worsen or persist or if there are any questions or concerns that arise at home. Special discussion: I discussed with the patient/guardian in detail that at this point there is no indication for admission to the hospital. It is understood, however, that if the symptoms persist or worsen the patient needs to return immediately for re-evaluation. 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
--- NOTE | 2025-06-19 09:42 | ER ---
Nurse's Notes [facility] Name: Chandan Kimball Age: 25 yrs Sex: Male : 2000 Arrival Date: 06/19/2025 Time: 09:22 Bed 20 Private MD: Diagnosis: Acute tonsillitis, unspecified Presentation: 06/19 09:33 Chief complaint: Patient states: Sore throat and congestion for 1 week. Coronavirus ll1 screen: Client denies travel out of the [place] in the last 14 days. congestion, cough unrelated to allergies, sore throat, Client presents with at least one sign or symptom that may indicate coronavirus-19. Standard/surgical mask placed on the client. Ebola Screen: Patient denies travel to an Ebola-affected area in the 21 days before illness onset. Resp Distress? No respiratory distress is noted at this time. Initial Sepsis Screen: Does the patient meet any 2 criteria? No. Patient's initial sepsis screen is negative. Does the patient have a suspected source of infection? No. Patient's initial sepsis screen is negative. Risk Assessment: Do you want to hurt yourself or someone else? Patient reports no desire to harm self or others. Onset of symptoms was June 13, 2025. 09:33 Method Of Arrival: Ambulatory ll1 09:33 Acuity: TESS 4 ll1 Historical: - Allergies: 09:27 Hydroxyzine; ll1 - PMHx: 09:27 ADD/ADHD; PTSD-self dx; ll1 - PSHx: 09:33 None; ll1 - Immunization history:: Adult Immunizations up to date. - Infectious Disease History:: Denies. - Social history:: Smoking status: Reported history of juuling and/or vaping. - Family history:: not pertinent. - Hospitalizations: : No recent hospitalization is reported. Screenin:45 [facility] ED Fall Risk Assessment (Adult) History of falling in the last 3 months, ar8 including since admission No falls in past 3 months (0 pts) Confusion or Disorientation No (0 pts) Intoxicated or Sedated No (0 pts) Impaired Gait No (0 pts) Mobility Assist Device Used No (0 pt) Altered Elimination No (0 pt) Score/Fall Risk Level 0 - 2 = Low Risk Oriented to surroundings, Maintained a safe environment. Abuse screen: Denies threats or abuse. Nutritional screening: No deficits noted. Tuberculosis screening: No symptoms or risk factors identified. Assessment: 09:45 General: Appears uncomfortable, Behavior is calm, cooperative. ar8 09:45 Pain: Complains of pain in throat. Neuro: Level of Consciousness is awake, alert, obeys ar8 commands, Oriented to person, place, time, situation. Cardiovascular: Patient's skin is warm and dry. Respiratory: Reports cough that is Airway is patent Respiratory effort is even, unlabored, Respiratory pattern is regular, symmetrical. GI: No signs and/or symptoms were reported involving the gastrointestinal system. : No signs and/or symptoms were reported regarding the genitourinary system. Vital Signs: 09:33 BP 148 / 106; Pulse 86; Resp 17; Temp 97.9; Pulse Ox 97% ; Weight 127.01 kg; Height 5 ll1 ft. 9 in. ; 09:33 Body Mass Index 41.35 (127.01 kg, 175.26 cm) ll1 ED Course: 09:25 Patient arrived in ED. al6 09:25 Adonis Murray MD is Attending Physician. rn 09:27 Arm band placed on Patient placed in an exam room, on a stretcher. ll1 09:34 Triage completed. ll1 09:43 Severiano Sher, RN is Primary Nurse. ar8 09:45 Bed in low position. Call light in reach. Side rails up X 1. Provided Education on: ar8 plan of care. 09:45 No provider procedures requiring assistance completed. Patient did not have IV access ar8 during this emergency room visit. Administered Medications: No medications were administered Medication: 09:45 VIS not applicable for this client. ar8 Outcome: 09:42 Discharge ordered by . rn 09:55 Discharged to home ambulatory, ar8 09:55 Condition: stable ar8 09:55 Discharge instructions given to patient, Instructed on discharge instructions, follow up and referral plans. medication usage, Demonstrated understanding of instructions, follow-up care, medications, Prescriptions given X 1, 09:59 Patient left the ED. ar8 Signatures: Adonis Murray MD MD rn Lewis, Lynsay, RN RN ll1 Pamella Rush al6 Severiano Sher RN RN ar8
[2025-06-19 10:03] VITALS: BP 148/106; TEMP 97.9; O2SAT 97
== END 2025-06-19 09:59 | disposition home or self-care (01) ==
LOC: ER 09:22
DX: J03.90 Acute tonsillitis, unspecified (principal)
CPT/HCPCS: 99283